=== PATIENT | female | born 1945 | race Caucasian/White ===

== ENCOUNTER 2019-08-09 16:19 | Outpatient (CLI) | payer MEDICARE, MEDICAID, SELFPAY ==
--- NOTE | 2019-08-09 16:30 | XRR_ITS ---
PROCEDURE INFORMATION: Exam: XR Left Knee Exam date and time: 08/09/2019 4:43 PM Age: 74 years old Clinical indication: Pain; Knee; Left; Additional info: L knee pain TECHNIQUE: Imaging protocol: XR Left knee. Views: 3 views. COMPARISON: No relevant prior studies available. FINDINGS: Bones/joints: Narrowing of the medial knee compartment with mild degenerative spurring of the medial condyles. The bones are otherwise intact and in normal alignment. No knee effusion. Soft tissues: Normal. XR/XR knee LT 3V* 23506 IMPRESSION: Degenerative changes of the medial knee compartment.
== END 2019-08-09 16:20 | disposition home or self-care (01) ==
LOC: RAD 16:23
PROVIDERS: Family Provider Family Medicine; Visit Provider Nurse Practitioner Family
DX: M25.562 Pain in left knee (principal)
CPT/HCPCS: 73562

== ENCOUNTER → 2019-09-07 09:38 | Outpatient (BNVA) | payer MEDICARE, MEDICAID, SELFPAY | PROVIDERS: Family Provider Family Medicine; Referring Provider Nurse Practitioner Family; Visit Provider Specialist | DX: M25.562 Pain in left knee (principal) | CPT/HCPCS: 73560; 73565 ==

== ENCOUNTER 2019-09-13 08:00 | Day surgery (SDC) | payer MEDICARE, MEDICAID, SELFPAY ==
[2019-09-13 08:57] VITALS: BMI 28.3
[2019-09-13 09:33] LABS: Basophils # 0.1 10^3/uL (0.0-0.1); Basophils % 0.9 %; Eosinophils # 0.1 10^3/uL (0.0-0.8); Eosinophils % 1.2 %; Hematocrit 39.6 % (37.0-47.0); Hemoglobin 12.9 g/dL (11.5-15.3); Lymphocytes # 1.5 10^3/uL (0.8-4.8); Lymphocytes % 26.2 %; Mean Corpuscular HGB Conc 32.6 g/dL (30.0-36.0); Mean Corpuscular Hemoglobin 32.8 pg (28.0-34.0); Mean Corpuscular Volume 100.8 fL (81-99); Mean Platelet Volume 9.2 fL (7.4-10.4); Monocytes # 0.6 10^3/uL (0.2-0.9); Monocytes % 9.8 %; Neutrophils # 3.5 10^3/uL (1.8-7.7); Neutrophils % 61.7 %; Nucleated Red Blood Cells % 0 %; Platelet Count 243 10^3/cmm (130-400); Red Blood Count 3.93 10^6/uL (4.1-5.3); Red Cell Distribution Width 11.9 % (12.1-15.1); White Blood Count 5.6 10^3/uL (4.0-10.0)
[2019-09-13 09:42] LABS: Bilirubin Urine 1+ (NEGATIVE); Blood Urine Trace (Negative); Glucose Urine UA Norm (Normal); Ketones Urine 1+ (Negative); Leukocyte Esterase Urine 2+ (Negative); Nitrate Urine Negative (Negative); Protein Urine 1+ (Negative); Urine Appearance Hazy (CLEAR); Urine Color Yellow (Yellow); Urobilinogen Urine 1 mg/dL (Negative); pH Urine 5 (5-7)
[2019-09-13 09:43] LABS: Add Urine Microscopic? YES
[2019-09-13 09:45] LABS: RBC Urine 0-4 /hpf (0-2); WBC Urine 55-80 /hpf (0-5)
[2019-09-13 09:45] LABS: Alanine Aminotransferase 20 U/L (0-33); Albumin Level 4.2 g/dL (3.5-5.2); Alkaline Phosphatase 53 IU/L (35-105); Anion Gap 13.7 (5-19); Aspartate Amino Transferase 23 U/L (0-32); Blood Urea Nitrogen 23 mg/dL (8-23); Calcium 9.8 mg/dL (8.5-10.5); Carbon Dioxide 28 mmol/L (22-29); Chloride 104 mmol/L (98-107); Globulin 3.7 g/dL (1.3-4.6); Glucose 111 mg/dL (65-115); Osmolality Calculated 289 mOsm/kg (285-295); Potassium 4.7 mmol/L (3.5-5.1); Sodium 141 mmol/L (136-145); Total Bilirubin 0.7 mg/dL (0.15-1.2); Total Protein 7.9 g/dL (6.6-8.7)
[2019-09-13 09:46] LABS: Bacteria Urine 2+; Transitional Epi Cells Urine 0-4 /hpf
[2019-09-13 09:47] LABS: Add Urine Culture? No; Hyaline Casts Urine 0-4; Mucus Urine TRACE
--- NOTE | 2019-09-13 09:56 | ANES.PREANE2 ---
Pre-Anesthetic Assessment Pre-Anesthetic Assessment: Height/Weight: Height 1.6 m Weight 72.575 kg Preop Diagnosis: DJD left knee Proposed Procedure: Operation Date: 09/20/19 07:00 Proposed Procedures p Total Knee Arthroplasty 25781 M17.11(Left) - Vidhi Delacruz MD Social: Social History: Alcohol (occ) and Tobacco (quit) Exam: Pre-Anes Outpt Exam: alert, oriented x 3, clear to auscultation bilaterally and regular rate & rhythm Airway: Submandibular: WNL Cervical ROM: WNL MP: 2 Dentition: False (upper), Full and Other (teeth poor) History/ROS: No significant history except as noted Pulmonary: Pulmonary: None reported CV/HEM: CV/HEM: CAD (cath 2009, no stents due to anatomy, stable since), HTN and CO : : None reported Hepatic: Hepatic: None reported GI: GI: None reported Metabolic: Metabolic: Hyperlipidemia Musc/skel: Musc/skel: OA/DJD Neuropsych: Neuropsych: None reported Anesthetic Plan: ASA status: 3 Anesthesia: Anesthesia Evaluation and Eval. for regional block (left Adductor canal) Risk of > 500 ml blood loss (7ml/kg in children): No PFSH Anesthesia PFSH: Medical History Cataract History of heart attack History of high blood pressure History of stroke Primary osteoarthritis of right knee Surgical History History of carpal tunnel release Social History Smoking and tobacco status: former smoker Alcohol intake: current Alcohol intake frequency: few times a week Data Anesthesia CBC & Chem 7: 09/13/19 09:16 09/13/19 09:16 Other Labs: Laboratory Results - last 48 hr 09/13/19 09/13/19 09/13/19 09:16 09:16 09:21 WBC 5.6 RBC 3.93 L Hgb 12.9 Hct 39.6 MCV 100.8 H MCH 32.8 MCHC 32.6 RDW 11.9 L Plt Count 243 MPV 9.2 Neut % (Auto) 61.7 Lymph % (Auto) 26.2 [place] % (Auto) 9.8 Eos % (Auto) 1.2 Baso % (Auto) 0.9 Neut # (Auto) 3.5 Lymph # (Auto) 1.5 [place] # (Auto) 0.6 Eos # (Auto) 0.1 Baso # (Auto) 0.1 Nucleated RBC % (auto) 0 Nucleated RBCs # 0.0 Sodium 141 Potassium 4.7 Chloride 104 Carbon Dioxide 28 Anion Gap 13.7 BUN 23 Creatinine 1.0 H Glucose 111 Calculated Osmolality 289 Calcium 9.8 Total Bilirubin 0.7 AST 23 ALT 20 Alkaline Phosphatase 53 Total Protein 7.9 Albumin 4.2 Globulin 3.7 Urine Color Yellow Urine Appearance Hazy A Urine pH 5 Ur Specific [place] 1.020 Urine Protein 1+ H Urine Glucose (UA) Norm Urine Ketones 1+ H Urine Blood Trace H Urine Nitrate Negative Urine Bilirubin 1+ H Urine Urobilinogen 1 H Ur Leukocyte Esterase 2+ H Urine RBC 0-4 H Urine WBC 55-80 H Ur Squamous Epith Cells 10-15 H Ur Transition Epith Cell 0-4 Urine Bacteria 2+ H Hyaline Casts 0-4 H Urine Mucus Trace Cardiac Studies: No Data to Display
--- NOTE | 2019-09-13 14:42 | PC.PT ---
Pre op order received 09/13/2019, no PT eval until post op 09/20/2019.
== END 2019-09-13 09:00 | disposition home or self-care (01) ==
LOC: OR 02-14 14:01
PROVIDERS: Family Provider Family Medicine; PCP Anesthesiology; Visit Provider Specialist
DX: Z01.818 Encounter for other preprocedural examination (principal); M17.12 Unilateral primary osteoarthritis, left knee; I25.10 Atherosclerotic heart disease of native coronary artery without angina pectoris; I25.2 Old myocardial infarction; I10 Essential (primary) hypertension; E78.5 Hyperlipidemia, unspecified; Z86.73 Personal history of transient ischemic attack (TIA), and cerebral infarction without residual deficits; Z87.891 Personal history of nicotine dependence
CPT/HCPCS: 36415; 80053; 81001; 85025

== ENCOUNTER → 2020-03-01 10:28 | Outpatient (BNVA) | payer MEDICARE, MEDICAID, SELFPAY | PROVIDERS: Family Provider Family Medicine; PCP Anesthesiology; Visit Provider Internal Medicine | DX: Z11.59 Encounter for screening for other viral diseases (principal) | CPT/HCPCS: 87635 ==

== ENCOUNTER 2020-03-06 09:15 | Observation (INO) | payer MEDICARE, MEDICAID, SELFPAY ==
[2020-02-29 10:23] VITALS: BMI 28.7
--- NOTE | 2020-02-29 11:09 | ANES.PREANE2 ---
Pre-Anesthetic Assessment Pre-Anesthetic Assessment: Height/Weight: Height 1.6 m Weight 73.482 kg Preop Diagnosis: DJD left knee Proposed Procedure: Operation Date: 03/06/20 07:00 Proposed Procedures p Total Knee Arthroplasty 28236 M17.11(Left) - Vidhi Delacruz MD Familial anesthetic complications: none Social: Social History: No alcohol Exam: Pre-Anes Outpt Exam: alert, oriented x 3, clear to auscultation bilaterally and regular rate & rhythm Airway: Cervical ROM: WNL MP: 2 Dentition: False CV/HEM: CV/HEM: CAD, HTN and MA (25 years ago) Metabolic: Metabolic: Hyperlipidemia Neuropsych: Neuropsych: CVA (25 years ago - L arm numbness) Anesthetic Plan: ASA status: 2 Anesthesia: General and Regional (specify below) Risk of > 500 ml blood loss (7ml/kg in children): No PFSH Anesthesia PFSH: Medical History Cataract History of heart attack History of high blood pressure History of stroke Primary osteoarthritis of right knee Surgical History History of carpal tunnel release Social History Smoking and tobacco status: former smoker Alcohol intake: current Alcohol intake frequency: few times a week Data Anesthesia Cardiac Studies: No Data to Display
--- NOTE | 2020-02-29 11:14 | ECG_ITS ---
[facility] Test Date: 2020-02-29 Pat Name: Emma Santos Department: Room: Gender: Female Market Specialist: : 1945 Requested By: Carrie Reddy Order Number: [id number] Don MD: Rach Mcgarry M.D. Measurements Intervals [place] Rate: 59 P: 52 MA: 216 QRS: 23 QRSD: 78 T: 38 QT: 433 QTc: 431 Interpretive Statements SINUS BRADYCARDIA WITH FIRST DEGREE AV BLOCK LOW QRS VOLTAGE IN PRECORDIAL LEADS [QRS DEFLECTION < 1.0 mV IN CHEST LEADS] POSSIBLE ANTERIOR MYOCARDIAL INFARCTION [30 ms Q WAVE IN V3/V4, OR R < 0.2 mV IN V4], PROBABLY OLD Compared to ECG 04/18/2019 04:45:13 Low QRS voltage now present Myocardial infarct finding now present Sinus rhythm no longer present Sinus arrhythmia no longer present T-wave abnormality no longer present Electronically Signed On 02-29-2020 18:51:37 CDT by Rach Mcgarry M.D. [email or web address]
[2020-02-29 11:44] LABS: Basophils # 0.1 10^3/uL (0.0-0.1); Basophils % 1.1 %; Eosinophils # 0.2 10^3/uL (0.0-0.8); Eosinophils % 3.5 %; Hematocrit 33.7 % (37.0-47.0); Hemoglobin 10.9 g/dL (11.5-15.3); Lymphocytes # 1.5 10^3/uL (0.8-4.8); Lymphocytes % 22.4 %; Mean Corpuscular HGB Conc 32.3 g/dL (30.0-36.0); Mean Corpuscular Hemoglobin 33.1 pg (28.0-34.0); Mean Corpuscular Volume 102.4 fL (81-99); Monocytes # 0.7 10^3/uL (0.2-0.9); Monocytes % 9.9 %; Neutrophils # 4.11 10^3/uL (1.8-7.7); Neutrophils % 62.8 %; Nucleated Red Blood Cells % 0 %; Platelet Count 239 10^3/cmm (130-400); Red Blood Count 3.29 10^6/uL (4.1-5.3); Red Cell Distribution Width 12.1 % (12.1-15.1); White Blood Count 6.6 10^3/uL (4.0-10.0)
[2020-02-29 11:52] LABS: Add Urine Microscopic? YES; Bilirubin Urine Neg (NEGATIVE); Blood Urine Neg (Negative); Glucose Urine UA Norm (Normal); Ketones Urine Negative (Negative); Leukocyte Esterase Urine 2+ (Negative); Nitrate Urine Negative (Negative); Protein Urine Neg (Negative); Specific Gravity, Urine 1.025 (1.005-1.030); Urine Color Yellow (Yellow); Urobilinogen Urine Neg (Negative); pH Urine 5 (5-7)
[2020-02-29 11:54] LABS: Bacteria Urine 2+; RBC Urine 0-4 /hpf (0-2); WBC Urine 80-100 /hpf (0-5)
[2020-02-29 11:55] LABS: Add Urine Culture? Yes; Mucus Urine 1+; Transitional Epi Cells Urine 0-4 /hpf
[2020-02-29 12:00] LABS: Alanine Aminotransferase 24 U/L (0-33); Albumin Level 4.4 g/dL (3.5-5.2); Alkaline Phosphatase 48 IU/L (35-105); Anion Gap 15.5 (5-19); Aspartate Amino Transferase 30 U/L (0-32); Blood Urea Nitrogen 26 mg/dL (8-23); Calcium 9.1 mg/dL (8.5-10.5); Carbon Dioxide 24 mmol/L (22-29); Chloride 107 mmol/L (98-107); Globulin 3.1 g/dL (1.3-4.6); Glucose 95 mg/dL (65-115); Osmolality Calculated 291 mOsm/kg (285-295); Potassium 4.5 mmol/L (3.5-5.1); Sodium 142 mmol/L (136-145); Total Bilirubin 0.4 mg/dL (0.15-1.2); Total Protein 7.5 g/dL (6.6-8.7)
[2020-03-06] VITALS (26 sets, daily range): BP systolic 95–142; BP diastolic 50–87; PULSE 61–93; RESP 13–27; TEMP 36.4–37.1; O2SAT 91–98
[2020-03-06] MEDS: sodium chloride 0.9% 1,000 ML 30 ML IV (06:21)
--- NOTE | 2020-03-06 06:45 | P.ANESUD_ITS ---
Pre-Anesthetic Update Pre-Anesthetic Assessment: Date of Surgery/Procedure: 03/06/20 Preop Klarissa gnosis: Left Knee degenerative osteoarthritis Proposed Procedure: Operation Date: 03/06/20 07:00 Proposed Procedures p Total Knee Arthroplasty 16239 M17.11(Left) - Vidhi Delacruz MD Any changes to Pre-Anesthetic Assessment?: No Last Intake: Intake Last Liquid Date 03/06/20 Last Liquid Time 04:45 Last Solid Date 03/05/20 Last Solid Time 17:00 Exam: Pre-Anes Outpt Exam: alert, oriented x 3, clear to auscultation bilaterally and regular rate & rhythm Other Pertinent Information: Other Pertinent Information: patient states she took plavix 5 days ago, but unable to state which day was last day Cardiac Studies: No Data to Display
--- NOTE | 2020-03-06 06:46 | ANES.PROC ---
Anesthesia Procedures Procedure/Date: 03/06/20 Nerve Block ^: Nerve Block 1: Main Anesthesia: general anesthesia Time Out Performed: Yes Consent: requested by attending/covering physician, from patient, risks and benefits reviewed and patient agrees to proceed Nerve block location: adductor canal (L) Anesthesia monitors applied: pulse oximetry, EKG, BP cuff and oxygen Nerve block position: supine Anesthetic Used: ropivicaine 0.5% and with decadron (4 mg) Amount of anesthesia used (mL): 30 Ultrasound used to: recognize landmarks Nerve Stimulator Used?: No Interscalene/Femoral BLK: 4 stimuplex 21 g needle used for position and inplane approach, visualize local anesthetic spread and no vascular puncture identified Injection: neg aspiration of heme Patient Tolerated Procedure: well Complications: none
[2020-03-06] MEDS: midazolam 1 mg/mL INJ 2 mL 2 MG IVP (06:48)
--- NOTE | 2020-03-06 06:53 | P.HPUD_ITS ---
Surgery/Procedure H&P Update DATE OF PROCEDURE: March 06, 2020 DATE H&P PERFORMED: 02/09/20 H&P UPDATE INFORMATION: I have reviewed H&P completed within last 30 days, I have examined patient prior to procedure and H&P is in [facility] EMR on date indicated PREOP DIAGNOSIS: Left Knee degenerative osteoarthritis PLANNED PROCEDURE: Operation Date: 03/06/20 07:00 Proposed Procedures p Total Knee Arthroplasty 16408 M17.11(Left) - Vidhi Delacruz MD Related Problem List Diagnoses (1) Primary osteoarthritis of left knee:
[2020-03-06] MEDS: ceFAZolin 1,000 mg SDV 1000 MG IRRIGATION ×2 (07:47→07:48)
[2020-03-06] MEDS: vancomycin 1,000 MG SDV 1000 MG XX (07:48)
--- NOTE | 2020-03-06 09:07 | PM.OP ---
Operative Report Date of procedure: March 06, 2020 Pre-op Diagnosis: Left Knee degenerative osteoarthritis Post-op diagnosis: same Post-op Findings: Severe degenerative osteoarthritis Procedure Done: Left total knee arthroplasty utilizing the following Bruce implants: A size 3 triathlon posterior stabilized press-fit left femoral component, a size 3 triathlon titanium tibial component, press-fit, a triathlon tibial bearing insert size 3 x 9 mm, and an asymmetric 32 mm x 10 mm patella Specimens removed/disposition: Bone, disposed of Pathology: none sent Surgeon: Vidhi Delacruz Dental Services Director: Silverio Mayen Anesthesia: General (Intubated, ASA tube with supplemental regional block) Estimated blood loss (mL): 10 Tourniquet time (min): 79 (At 250 mmHg) IV fluids (mL): 700 Urine output (mL): 100 Complications: None Findings: Degenerative osteoarthritis left knee Condition: stable Disposition: PACU (Then to floor for observation, postop pain management and rehabilitation) Brief History: This 74-year-old woman presented with comments of severe left knee pain. She wishes to proceed with left total knee arthroplasty after discussion. She understands the risks and complications which were explained to her. Consents were signed and questions were answered. Procedure: The patient was brought to the operating theater, and after undergoing adequate general intubated anesthesia, ASA 2, with supplemental regional block, the left lower extremity was prepped with Dura-Prep and draped in usual fashion following placement of a tourniquet high on the leg. The leg was then draped free. Following prepping and draping, the leg was exsanguinated, and the tourniquet was elevated to 250 mmHg for a total tourniquet time of 79 minutes. Prior to elevation of the tourniquet, but following exposure of the site of surgery, a surgical pause was performed. At the time of the surgical pause, we confirmed the site and side of surgery. Additionally, we confirmed the appropriate and timely administration of preoperative antibiotics, Ancef 2 g and transexemic acid 1 g pre op. The availability of equipment was confirmed, and the patient's identity was verbalized as well. Following the surgical pause, an incision was made centering over the patella continuing proximally and distally as necessary to allow access to the knee joint. Dissection continued through skin and soft tissues using a scalpel. Hemostasis was obtained using electrocautery. The skin incision was followed by a median parapatellar arthrotomy. The leg was extended and the patella was everted. Following this, the leg was returned to flexed position. The distal femur was exposed and a drill hole was made in this for placement of the distal femoral jig. The distal femoral jig was set at 5? of valgus. The distal femoral cutting block was then placed in appropriate position, and an issa wing was used to confirm an appropriate amount of distal femur would be resected. The distal femoral resection was accomplished with 8 mm of bone being resected distally. After the distal femoral resection had been accomplished, the femur was measured and it measured a size 3. Medial lateral dimension also measured a size 3. A size 3 femoral cutting block was placed in position, and we were then able to accomplish the anterior, posterior and chamfer cuts. This jig was then removed and the notch guide was placed in position. With the notch guide in appropriate position, the notch was excised including resection of the anterior and posterior cruciate ligaments. This notch was to allow for the posterior stabilized femoral component. At this point, the femur was prepared and attention was directed to the proximal tibia. The posterior knee retractor was placed along with medial and lateral retractors. Further resection of the menisci was accomplished as we had better visualization. A complete meniscectomy was performed both medially and laterally with care being taken to protect the popliteus. Retractors were then placed so that the proximal tibia was well visualized. A drill hole was then made in the tibia for placement of the intramedullary guide. This guide was placed so that approximately 2 mm of bone would be resected from the deficient medial tibial plateau. The intramedullary guide was utilized supplemented with an extramedullary guide to assure appropriate alignment for the proximal tibial resection. The proximal tibial jig was then evaluated, pinned in position, and the proximal tibial resection was accomplished without difficulty. The jig was removed and the proximal tibia was measured. It measured a size 3. A trial reduction was accomplished with an 9 mm insert. We had good balance to the knee with full extension and excellent varus-valgus stability. The femoral component was placed in position for the trial reduction, and the knee was placed through range of motion. There was excellent stability with excellent varus-valgus alignment with appropriate patellar tracking. This was felt to be the appropriate size insert. There was full extension and flexion without lift off and the rotation of the tibia was marked. Alignment was checked from the hip to the ankle, and this was noted to be appropriate as well. Attention was then directed to the patella. The patella was measured with a caliper. We resected sufficient patella to leave approximately 14 mm of patella remaining. Measurements of the patella then indicated that a size asymmetric 32 mm x 10 mm was the appropriate patellar size. We then placed the jig to drill for the 3 pegs of the press-fit patella, and these drill holes were made without incident. A trial patella was then placed and the knee was placed through range of motion. The patella was noted to track nicely without evidence of subluxation. The femur was prepared for a press-fit femur by drilling 2 holes for the femoral pegs. All trial components were subsequently removed. The tibial tray was then pinned into position, and we broached the tibia for the stem of the tibial component. Subsequently, 4 drill holes were made for placement of the press-fit tibia. This was accomplished without difficulty. Care was taken to assure appropriate rotation of the tibia as well as appropriate position on the proximal tibia. The tibial tray was completely seated on the proximal tibia. Following broaching, the tibial guide was removed, and all surfaces were copiously irrigated. The surfaces were then dried and a bone plug was placed into the distal femur. Exparel was also injected at this point. The Tritanium tibia was impacted into position. The beaded femur was then impacted into position in a cementless fashion. The tibial insert was placed. The patella was pressed into position with a patellar clamp. The knee was irrigated with 20 mL of Betadine and 500 mL of normal saline, and this was allowed to remain in the knee for 3-4 minutes. This was allowed to remain in the knee for 3 full minutes. The knee was then copiously irrigated and suctioned dry. Attention was then directed to closure. Closure was accomplished with 0 Vicryl in the fascial tissues, 2-0 Monocryl was used in the subcutaneous tissues, and the skin was closed with skin rosemary followed by Exofin. A sterile dressing was then placed consisting of Telfa, 4 x 4's, ABDs, sterile soft roll, and an Bear wrap. The patient was returned the Recovery Room in a satisfactory condition. X-rays were obtained there. The patient will be discharged to the floor for postoperative rehabilitation and pain management. She'll be under inpatient status secondary to initial cardiac issues and need for probable senior living at the time of discharge. Associated Problem List Diagnoses (1) Primary osteoarthritis of left knee:
--- NOTE | 2020-03-06 09:10 | SUR.PHASEI ---
0904 PATIENT TO PACU FROM OR. RR EVEN AND UNLABORED. SPO2 92% ON NC AT 5L. DRESSING TO LEFT KNEE, CDI WITH, LEFT PEDAL PULSE, STRONG AND MARKED.
--- NOTE | 2020-03-06 09:18 | XRR_ITS ---
PROCEDURE INFORMATION: Exam: XR Left Knee Exam date and time: 03/06/2020 9:21 AM Age: 74 years old Clinical indication: Device placement; Joint replacement hardware; Prior surgery; Surgery date: Post-operative (0-2 days); Additional info: Post op TECHNIQUE: Imaging protocol: XR Left knee. Views: 1 or 2 views. COMPARISON: CR XR knees AP WB w LT lmt ORTH 09/07/2019 9:43 AM FINDINGS: Bones/joints: Patient is status post knee arthroplasty with near anatomical alignment of the prosthesis. No paralleling lucencies about the femoral or tibial component to suggest loosening. No acute fracture or dislocation. Soft tissues: Postoperative changes in the soft tissues. Other findings: Spacer. XR/XR knee LT 1-2V 77106 IMPRESSION: 1. Status post knee arthroplasty. 2. No paralleling lucencies about the femoral or tibial component to suggest loosening. 3. No acute fracture or dislocation.
[2020-03-06] MEDS: fentaNYL 50 mcg/mL INJ 2mL IVP ×2 (09:22→09:35)
--- NOTE | 2020-03-06 09:37 | PM.PACU ---
PACU note Post-Anesthesia Exam: awake and vital signs stable Disposition: admitted
--- NOTE | 2020-03-06 10:16 | SUR.PHASEI ---
0988 PATIENT TO MED SURG. PAIN IMPROVED. DENIES NAUSEA. DRESSING INTACT TO LEFT LEG, CDI WITH LOLA WRAP IN PLACE AND FIRST ICE. GARRISON CATH IN PLACE.
[2020-03-06] MEDS: oxyCODONE 5 mg IR Tab/Cap PO ×2 (11:13→23:17)
[2020-03-06] MEDS: clopidogrel 75 mg Tablet PO (11:14)
[2020-03-06] MEDS: metoprolol succinate ER (24 HR) 50 mg Tablet PO (11:14)
[2020-03-06] MEDS: multivitamin therapeutic Tablet 1 TAB PO (11:14)
[2020-03-06] MEDS: spironolactone 25 mg Tablet PO (11:14)
[2020-03-06] MEDS: calcium carbonate 500 mg Chew Tablet 1000 MG PO ×2 (11:14→18:11)
[2020-03-06] MEDS: sennosides-docusate Tablet 2 TAB PO ×2 (11:14→18:11)
[2020-03-06] MEDS: cholecalciferol (vitamin D3) 1,000 unit Tablet 1000 UNIT PO (11:15)
[2020-03-06] MEDS: mupirocin oint 22 gm 1 APPLIC NASAL ×2 (11:15→18:11)
[2020-03-06] MEDS: chlorhexidine gluconate 0.12% Btl 473 mL 30 ML MUCOUS MEM ×4 (11:15→22:08)
[2020-03-06] MEDS: mupirocin oint 22 gm 1 APPLIC TOPICAL ×2 (11:15→18:11)
[2020-03-06] MEDS: CELEcoxib 200 mg Capsule PO (18:11)
[2020-03-06] MEDS: iron polysaccharide complex 150 mg Capsule PO (18:11)
--- NOTE | 2020-03-06 18:19 | PC.NURSE ---
Bactroban to leg administration undone. Documented on wrong route.
[2020-03-07 02:49] LABS: Hematocrit 28.8 % (37.0-47.0); Hemoglobin 9.2 g/dL (11.5-15.3); Lymphocytes # 0.5 10^3/uL (0.8-4.8); Lymphocytes % 6.2 %; Mean Corpuscular HGB Conc 31.9 g/dL (30.0-36.0); Mean Corpuscular Hemoglobin 33.3 pg (28.0-34.0); Mean Corpuscular Volume 104.3 fL (81-99); Mean Platelet Volume 10.3 fL (7.4-10.4); Monocytes # 0.7 10^3/uL (0.2-0.9); Monocytes % 7.9 %; Neutrophils # 7.05 10^3/uL (1.8-7.7); Neutrophils % 85.5 %; Nucleated Red Blood Cells % 0 %; Platelet Count 201 10^3/cmm (130-400); Red Blood Count 2.76 10^6/uL (4.1-5.3); Red Cell Distribution Width 12.2 % (12.1-15.1); White Blood Count 8.2 10^3/uL (4.0-10.0)
[2020-03-07 03:03] VITALS: RESP 18; O2SAT 95
[2020-03-07] MEDS: oxyCODONE 5 mg IR Tab/Cap PO ×2 (03:03→08:26)
[2020-03-07 03:15] LABS: Blood Urea Nitrogen 23 mg/dL (8-23); Calcium 9.3 mg/dL (8.5-10.5); Carbon Dioxide 22 mmol/L (22-29); Chloride 100 mmol/L (98-107); Glucose 140 mg/dL (65-115); Osmolality Calculated 271 mOsm/kg (285-295); Sodium 131 mmol/L (136-145)
[2020-03-07 04:36] VITALS: BP 124/74; PULSE 63; RESP 20; TEMP 36.9; O2SAT 95
[2020-03-07] MEDS: CELEcoxib 200 mg Capsule PO (05:40)
[2020-03-07 08:00] VITALS: BP 151/80; PULSE 65; RESP 18; TEMP 36.8; O2SAT 96
[2020-03-07] MEDS: amlodipine 5 mg Tablet PO (08:12)
[2020-03-07] MEDS: calcium carbonate 500 mg Chew Tablet 1000 MG PO (08:12)
[2020-03-07] MEDS: spironolactone 25 mg Tablet PO (08:12)
[2020-03-07] MEDS: atorvastatin 40 mg Tablet 20 MG PO (08:12)
[2020-03-07] MEDS: citalopram 20 mg Tablet 10 MG PO (08:13)
[2020-03-07] MEDS: multivitamin therapeutic Tablet 1 TAB PO (08:13)
[2020-03-07] MEDS: metoprolol succinate ER (24 HR) 50 mg Tablet PO (08:13)
[2020-03-07] MEDS: iron polysaccharide complex 150 mg Capsule PO (08:13)
[2020-03-07] MEDS: cholecalciferol (vitamin D3) 1,000 unit Tablet 1000 UNIT PO (08:13)
[2020-03-07] MEDS: aspirin 325 mg EC Tablet PO (08:13)
[2020-03-07] MEDS: clopidogrel 75 mg Tablet PO (08:13)
[2020-03-07 08:26] VITALS: RESP 16
[2020-03-07] MEDS: mupirocin oint 22 gm 1 APPLIC TOPICAL (08:26)
[2020-03-07] MEDS: sennosides-docusate Tablet 2 TAB PO (08:26)
[2020-03-07] MEDS: mupirocin oint 22 gm 1 APPLIC NASAL (08:27)
[2020-03-07] MEDS: chlorhexidine gluconate 0.12% Btl 473 mL 30 ML MUCOUS MEM (08:27)
--- NOTE | 2020-03-07 09:29 | PC.OT ---
OT Note: Patient refused therapy this morning and refused therapist offer to return later today.
--- NOTE | 2020-03-07 10:51 | PC.OT ---
OT note: Pt declined any OT at this time. Pt educated on purpose of OT and she refused. Eval not completed per pt's request.
--- NOTE | 2020-03-07 10:57 | ANE.PACU2 ---
Inpatient post-anesthesia follow up: Airway intact: Yes Vital signs: Temperature 98.2 F Pulse Rate 65 Respiratory Rate 16 Blood Pressure 151/80 Pulse Oximetry 96 Oxygen Delivery Me thod [ Room Air Current Rate & Del ata] Oxygen Delivery Me thod Room Air Oxygen Flow Rate 5 Fraction of Inspir ed Oxygen Hydration adequate: Yes Nausea and vomiting: No Pain level: 7 Mental status: Baseline Additional Comments: Block worked well for patient
[2020-03-07 11:31] VITALS: BP 123/71; PULSE 74; RESP 18; TEMP 36.7; O2SAT 96
[2020-03-07] MEDS: TRAMadol 50 mg Tablet PO (11:52)
--- NOTE | 2020-03-07 14:09 | PM.DCS ---
Discharge Providers Date of Admission: 03/06/20 09:15 Date of Discharge: March 07, 2020 Attending Provider at Admission: Vidhi Delacruz MD Attending Provider at Discharge: Vidhi Delacruz MD Primary Care Provider: Gatito Salcedo MD Diagnoses at Discharge Discharge Diagnosis (1) Primary osteoarthritis of left knee: Status: Acute Problem details: Resolved with left total knee arthroplasty Reason for Visit Reason for Visit: left total knee arthoplasty Hospital Course Hospital Course: Patient was admitted following total knee arthroplasty. She was brought to the hospital under observation status for postoperative rehabilitation, initiation of physical therapy, pain management, and monitoring of medical comorbidities. Initially, the patient felt that she might require alf, however, she did well enough following her surgery that she was ready for discharge to home the day following her surgical procedure. Discharge Summary: Patient was admitted for same-day surgery. The following procedure was performed: Left total knee arthroplasty utilizing the following [place] implants: A size 3 triathlon posterior stabilized press-fit left femoral component, a size 3 triathlon titanium tibial component, press-fit, a triathlon tibial bearing insert size 3 x 9 mm, and an asymmetric 32 mm x 10 mm patella. This was uneventful. She was independent with therapy and comfortable on the first postoperative day. Therefore, the patient was discharged home with home therapy. She will follow-up with me as scheduled. She will continue aspirin, all, and Celebrex, as well as her pain medications. Physical Exam Const: COMMON NORMALS: no acute distress, average body habitus, patient oriented x3 and alert GENERAL APPEARANCE: cooperative and comfortable ORIENTATION/CONSCIOUSNESS: Yes awake HENMT: COMMON NORMALS: normocephalic and atraumatic HEAD & SCALP: normocephalic and atraumatic Eye: GENERAL EYE: appearance normal, both eyes and all related structures Chest: COMMONS NORMALS: normal inspection of the chest Resp: COMMON NORMALS: normal respiratory effort EFFORT & INSPECTION: Yes able to speak in complete sentences and Yes symmetric chest movement Neuro: COMMON NORMALS: patient oriented x3 SENSORIUM/ORIENTATION: Yes alert Psych: COMMON NORMALS: mental status grossly normal APPEARANCE: Yes grossly normal ATTITUDE: Yes calm and Yes engaged ATTENTION/CONCENTRATION: Yes attention grossly intact Skin: COMMON NORMALS: no rashes or lesions noted GENERAL SKIN EXAM: no rashes or lesions noted Urinary Catheter Management^: F: Cath Placed During This Visit: yes Reason for Continuing Indwelling Catheter: Perioperative Use in Selected Surgeries Urinary Catheter Date of Insertion: 03/06/20 Urinary Catheter Time of Insertion: 07:20 Discharge Data Data Completed and Pending: Completed Studies During Hospitalization Category Date Time Status XR knee LT 1-2V 7 3560 Routine Exams 03/06/20 09:18 Completed Pending at discharge Category Date Time Status Complete Blood Co unt w/Auto AM LABS Lab 03/08/20 04:00 Ordered Complete Blood Co unt w/Auto AM LABS Lab 03/09/20 04:00 Ordered Labs from last 24 hours 03/07/20 03/07/20 02:14 02:14 WBC 8.2 RBC 2.76 L Hgb 9.2 L Hct 28.8 L MCV 104.3 H MCH 33.3 MCHC 31.9 RDW 12.2 Plt Count 201 MPV 10.3 Neut % (Auto) 85.5 Lymph % (Auto) 6.2 Love % (Auto) 7.9 Eos % (Auto) 0.0 Baso % (Auto) 0.0 Neut # (Auto) 7.05 Lymph # (Auto) 0.5 L Love # (Auto) 0.7 Eos # (Auto) 0.0 Baso # (Auto) 0.0 Nucleated RBC % (a uto) 0 Nucleated RBCs # 0.0 Sodium 131 L Potassium 5.0 Chloride 100 Carbon Dioxide 22 Anion Gap 14.0 BUN 23 Creatinine 1.7 H GFR Calculation Not Reportable Glucose 140 H Calculated Osmolal ity 271 L Calcium 9.3 Vitals: Last Vital Signs Temp 98.0 F 03/07/20 11:31 Pulse 74 03/07/20 11:31 Resp 18 03/07/20 11:31 BP 123/71 03/07/20 11:31 Pulse Ox 96 03/07/20 11:31 Discharge Plan Discharge Patient Disposition: Home Health Service Condition: Stable Prescriptions: New oxycodone 5 mg Tablet 5 mg PO Q4H PRN (Reason: Moderate Pain) Qty: 30 RF: 0 acetaminophen 500 mg Tablet 1,000 mg PO Q8H 15 Days Qty: 0 RF: 0 aspirin 325 mg Tablet,Delayed Release (Dr/Ec) 325 mg PO DAILY 30 Days Qty: 0 RF: 0 celecoxib 200 mg Capsule 200 mg PO Q12H Qty: 60 RF: 0 Continued mupirocin 2 % ointment 1 applic TOPICAL BID Qty: 15 RF: 0 clopidogrel 75 mg tablet 75 mg PO DAILY RF: 0 sulfamethoxazole-trimethoprim [Bactrim DS] 800-160 mg tablet 1 tab PO BID Qty: 20 RF: 0 metoprolol succinate 50 mg tablet extended release 24 hr 50 mg PO DAILY RF: 0 citalopram 10 mg tablet 10 mg PO DAILY RF: 0 amlodipine 5 mg tablet 5 mg PO DAILY RF: 0 spironolactone [Aldactone] 25 mg tablet 25 mg PO DAILY RF: 0 nitroglycerin 0.4 mg tablet, sublingual 0.4 mg sublingual PRN RF: 0 rosuvastatin [Crestor] 20 mg tablet 20 mg PO DAILY RF: 0 Held hydrocodone-acetaminophen 5-325 mg tablet 1 tab PO Q8H PRN (Reason: Pain) RF: 0 Hold Instructions: Resume on 03/21/20. Discharge Orders: Discharge Order (Routine); Ordered 03/06/20 Ordered By: Vidhi Delacruz Other Ambulatory Orders: DME: Walker (Order) Location: None Selected Ordered By: Vidhi Delacruz Referrals: [facility] [Outside] [facility] Care ([facility]) [Outside] Vidhi Delacruz MD [Physician] - 03/19/20 10:45 am Discharge Diet: Advance as tolerated and Usual diet Discharge Activity: Increase activity as tolerated, Limit activity as instructed, Use walker/crutches as instructed and As per PT/OT instructions Patient Instructions: Total Knee Replacement (DC), Precautions after Total Joint Replacement Surgery (DC) Activity Restrictions/Additional Instructions: Weight-bear as tolerated. Keep wound covered as needed. Discharge Attestations Time Spent in Discharge Care*: greater than 30 min Specific Discharge Activities: Specific discharge activities: educating patient, discussing with nurse case manager/social workers/dc planners and documenting/other paperwork Quality Metrics Clinical Quality Measures During this hospital stay, did patient experience: None Coding Level of Care Code Acute Degreasing Solution Mixer for Bennett Fwponcho Diagnoses Primary osteoarthritis of left knee M17.12
--- NOTE | 2020-03-07 14:43 | PC.CHAP ---
Pastoral Care Encounter/Spiritual Assessment Type of Contact [] Declined magazine editor visit [] Patient/Family/Request visit [] Outpatient visit [] Follow-up visit [] Physician referral [] Code/Alert [X] Routine visit [] Staff referral [] Actively dying [] Patient sleeping [] Family support [] [] Out of room [] Palliative care [] [] Receiving care in room [] Pre-surgical visit [] Trauma [] Long length of stay [] ICU visit [] Other: Relational/Emotional Strength [] Patient feels connected with others/family/visitors/staff [] Distress [] Loneliness/isolation [] Abandonment Spirituality of Patient [] Person of Noa [] Attends Jain of their Noa [] Believes in Prayer [] Reads Bible or Yarsani materials [] There are Spiritual issues to be addressed Business Librarian Interventions [X] Prayer [] Active listening [] Non-anxious presence [] Spiritual/emotional support [] Crisis/trauma care [] Spiritual counseling [] Bereavement support [] Provided bereavement packet [] Provided Bible/devotional materials [] Provided toy/stuffed animal, coloring book to patient or family member [] Provided Communion [] Anointing/[place] [] Salvation [] Completed spiritual assessment [] Other: Impact on Illness or Injury [] Angry [] Fearful [] Anxious [] Often cries [] Exhaustion [] Unable to work [] Unable to attend latter-day [] Unable to walk/stand [] Unable to read [] Unable to drive [] Unable to eat/drink [] Unable to sleep [] Unable to be with family [] Patient intubated [] Other: Summary Time spent with patient
[2020-03-07 15:32] VITALS: BP 123/71; PULSE 74; RESP 18; TEMP 36.7; O2SAT 96
== END 2020-03-07 15:33 | disposition home health service (06) ==
LOC: MEDSURG 09:17
PROVIDERS: Admitting Provider Specialist; PCP Anesthesiology; Visit Provider Specialist
PROC: (CPT 27447; principal; 2020-03-06 07:00)
DX: M17.12 Unilateral primary osteoarthritis, left knee (principal); I25.10 Atherosclerotic heart disease of native coronary artery without angina pectoris; I10 Essential (primary) hypertension; I25.2 Old myocardial infarction; E78.5 Hyperlipidemia, unspecified; Z86.73 Personal history of transient ischemic attack (TIA), and cerebral infarction without residual deficits; Z87.891 Personal history of nicotine dependence
CPT/HCPCS: 27447; 12345; 36415; 51702; 73560; 80048; 80053; 81001; 85025; 87086; 93005; 96365; 96366; 96374; 97110; 97116; 97161; 97530; C1776; C9290; G0378; J0131; J0690; J1100; J2250; J2704; J2795; J3010; J3370; J3490; J7030

== ENCOUNTER → 2020-03-19 11:14 | Outpatient (BNVA) | payer MEDICARE, MEDICAID, SELFPAY | PROVIDERS: PCP Anesthesiology; Visit Provider Specialist | DX: M17.12 Unilateral primary osteoarthritis, left knee (principal) | CPT/HCPCS: 73560; 73565 ==

== ENCOUNTER → 2020-04-18 10:45 | Outpatient (BNVA) | payer MEDICARE, MEDICAID, SELFPAY | PROVIDERS: Family Provider Family Medicine; PCP Anesthesiology; Visit Provider Specialist | DX: M17.12 Unilateral primary osteoarthritis, left knee (principal); Z96.652 Presence of left artificial knee joint | CPT/HCPCS: 73560; 73565 ==

== ENCOUNTER 2020-05-31 09:27 | Outpatient (CLI) | payer MEDICARE, MEDICAID, SELFPAY ==
--- NOTE | 2020-05-31 09:40 | USCV_ITS ---
Emma Santos Age: 74 Gender: F : 1945 Exam Date: 05/31/2020 10:04 Ordering Phys: Gatito Biggs MD Technologist: Darrell Barnes Exam Location: [facility] [place] Indication: HTN Aortic Velocity @ SMA (cm/s) 67.2 RIGHT KIDNEY LEFT KIDNEY Velocity (cm/s) Velocity (cm/s) Sys/Liriano Sys/Liriano Resistive Index Resistive Index 220.0 / 48.0 0.78 Proximal Renal Artery 106.2 / 21.4 0.80 213.7 / 49.5 0.78 Mid Renal Artery 104.5 / 20.6 0.80 200.8 / 47.5 0.75 Distal Renal Artery 94.5 / 24.4 0.74 236.7 / 24.4 0.90 Hilar 81.3 / 20.3 0.75 40.6 / 10.7 0.74 Upper Pole 45.8 / 14.3 0.69 29.2 / 11.7 0.60 Mid Pole 51.5 / 11.4 0.78 40.3 / 12.9 0.68 Lower Pole 54.9 / 14.8 0.73 5.00 Renal Aortic Ratio 1.58 Accleration Index (cm/sec2) 4060.0 Hilar 1157.0 0 0 224.00 Upper Pole 780.00 164.00 Mid Pole 716.00 179.00 Lower Pole 666.00 94.8 Kidney Length (mm) 105.0 CONCLUSIONS Increased systolic flow velocities (>180cm/s) and post-stenotic turbulence with tardus parvus waveform noted in the proximal right renal artery, suggesting hemodynamically significant (>60% ) renal artery stenosis. No sonographic evidence of hemodynamically significant left renal artery stenosis. Vijay Kim MD (Electronically Signed) Final Date: 01 June 2020 17:53 S
--- NOTE | 2020-05-31 09:41 | US_ITS ---
WS: [id number] ULTRASOUND RENAL TECHNIQUE: Ultrasound examination of both kidneys. CLINICAL INFORMATION: ESSENTIAL HYPERTENSION COMPARISON: None. FINDINGS: RIGHT: Right kidney is normal in size and appearance. Echogenicity: Normal. Cortical thickness: 1.0 cm; Normal. Hydronephrosis: None. Perinephric fluid: None. Right kidney measures: 9.9 cm x 4.2 cm x 3.7 cm. LEFT: Left kidney is normal in size and appearance. Echogenicity: Normal. Cortical thickness: 1.1 cm; Normal. Hydronephrosis: None. Perinephric fluid: None. Left kidney measures: 9.9 cm x 4.7 cm x 3.6 cm. Normal visualized aorta. Normal bladder. US/US renal BI* [id number] IMPRESSION: Normal renal ultrasound
== END 2020-05-31 09:28 | disposition home or self-care (01) ==
LOC: RAD 09:31
PROVIDERS: PCP Family Medicine; Visit Provider Family Medicine
DX: I10 Essential (primary) hypertension (principal)
CPT/HCPCS: 76770; 93975

== ENCOUNTER 2020-08-04 12:47 | Emergency (ER) | payer MEDICARE, MEDICAID, SELFPAY ==
[2020-08-04 13:01] VITALS: BP 178/87; PULSE 83; RESP 14; TEMP 36.7; O2SAT 96; BMI 27.3
--- NOTE | 2020-08-04 13:12 | ECG_ITS ---
[facility] Test Date: 2020-08-04 Pat Name: Emma Santos Department: Room: Gender: Female Garment Fitter: : 1945 Requested By: Santos Nick I Order Number: [id number] Reading MD: FAUSTO RUSHING Measurements Intervals Aubrey Rate: 77 P: 28 FL: 204 QRS: 5 QRSD: 89 T: 47 QT: 420 QTc: 477 Interpretive Statements SINUS RHYTHM POSSIBLE ANTERIOR MYOCARDIAL INFARCTION , PROBABLY OLD [30 ms Q WAVE IN V3/V4, OR R < 0.2 mV IN V4] Compared to ECG 02/29/2020 11:17:42 Sinus bradycardia no longer present First degree AV block no longer present Myocardial infarct finding still present Electronically Signed On 08-04-2020 21:34:16 FLOOR SWEEPER by FAUSTO RUSHING [id number]
--- NOTE | 2020-08-04 13:13 | XRR_ITS ---
PROCEDURE INFORMATION: Exam: XR Chest, 2 Views Exam date and time: 08/04/2020 1:14 PM Age: 75 years old Clinical indication: Other: HTN TECHNIQUE: Imaging protocol: XR of the chest Views: 2 views. COMPARISON: CT Chest/Abdomen/Pelvis w IV* 04/18/2019 3:20 AM FINDINGS: Lungs: Unremarkable. No consolidation. Pleural spaces: Unremarkable. No pleural effusion. No pneumothorax. Heart/Mediastinum: Stable cardiomediastinal silhouette. Bones/joints: Degenerative changes of the spine seen. XR/XR chest 2V* [id number] IMPRESSION: No evidence of active cardiopulmonary disease.
[2020-08-04 13:28] LABS: Eosinophils # 0.1 10^3/uL (0.0-0.8); Eosinophils % 1.2 %; Hematocrit 37.5 % (37.0-47.0); Hemoglobin 12.2 g/dL (11.5-15.3); Lymphocytes # 0.8 10^3/uL (0.8-4.8); Lymphocytes % 19.2 %; Mean Corpuscular HGB Conc 32.5 g/dL (30.0-36.0); Mean Corpuscular Volume 98.4 fL (81-99); Mean Platelet Volume 9.7 fL (7.4-10.4); Monocytes # 0.4 10^3/uL (0.2-0.9); Monocytes % 8.6 %; Neutrophils # 2.95 10^3/uL (1.8-7.7); Nucleated Red Blood Cells % 0 %; Platelet Count 229 10^3/cmm (130-400); Red Blood Count 3.81 10^6/uL (4.1-5.3); Red Cell Distribution Width 12.4 % (12.1-15.1); White Blood Count 4.2 10^3/uL (4.0-10.0)
--- NOTE | 2020-08-04 13:33 | W.ED.GENADLT ---
HPI - General Adult General: Chief complaint: General Medical Stated complaint: HTN Time Seen by Provider: 08/04/20 13:02 Source: patient Mode of arrival: ambulatory Limitations: no limitations History of Present Illness: HPI narrative: The patient is a 75-year-old female with a history of hypertension who presents to the emergency department for persistently elevated blood pressure. She says she has been checking it often at home and it has remained elevated in the 180s to low 200s systolic. She was started on lisinopril and amlodipine yesterday but because her blood pressure still elevated today she came in for evaluation. She denies any chest pain, headaches, dizziness, shortness of breath. Associated symptoms: Deny dyspnea, headache(s), nausea, rash, palpitations or vomiting Review of Systems General: Reports: 10 or more systems reviewed and unremarkable except in HPI and below Const: Denies: fever(s), chills or body aches Eyes: Denies: change in vision or blurry vision ENMT: Denies: throat pain, enlarged tonsils, odynophagia, hoarseness, mouth pain or swelling of lips/tongue Card: Denies: palpitations, irregular heart rhythm, edema or swelling of feet/ankles Resp: Denies: dyspnea, productive cough or non-productive cough GI: Denies: abdominal pain, nausea or vomiting : Denies: flank pain, difficulty voiding, dysuria, urinary frequency, urinary urgency or urinary hesitancy Musc: Denies: neck pain, back pain or extremity swelling Skin/Breast: Denies: rash, pruritus or erythema Neuro: Denies: headache(s), numbness in extremities or weakness in extremities Endo: Denies: polyuria, polydipsia or tired all the time PFSH ED PFSH: Medical History (Updated 08/04/20 @ 15:32 by Santos Nick MD, MSM) Cataract History of heart attack History of high blood pressure History of stroke Primary osteoarthritis of right knee Surgical History History of carpal tunnel release Social History Smoking and tobacco status: former smoker Alcohol intake: current Alcohol intake frequency: few times a week Physical Exam Const: COMMON NORMALS: no acute distress, average body habitus, patient oriented x3, no limitations, healthy appearing, alert and well nourished HENMT: COMMON NORMALS: normocephalic, atraumatic and moist oral mucous membranes HEAD & SCALP: normocephalic and atraumatic Neck/C-Spine: COMMON NORMALS: no meningeal signs and no JVD Resp: COMMON NORMALS: normal respiratory effort, No retractions, No use of accessory muscles, clear to auscultation bilaterally and percussion normal AUSCULTATION: clear to auscultation bilaterally PERCUSSION: percussion normal Cardio: COMMON NORMALS: no JVD, regular rate, regular rhythm, S1 normal heart sound present, S2 normal heart sound present, No gallops present (Cardio), No clicks present (Cardio), No murmurs present (Cardio), No rub (Cardio) and Peripheral pulses 2+ throughout RATE: regular rate RHYTHM: regular rhythm HEART SOUNDS: S1 normal heart sound present and S2 normal heart sound present PERIPHERAL PULSES: Peripheral pulses 2+ throughout GI: COMMON NORMALS: Normal to inspection, nondistended, normoactive bowel sounds present, Soft to palpation, non-tender, No hepatosplenomegaly present, no masses and no bruits PALPATION: Yes Soft to palpation and Yes No hepatosplenomegaly present Extremity: COMMON NORMALS: normal to inspection, full ROM, capillary refill normal, no calf tenderness and no pedal edema Neuro: COMMON NORMALS: patient oriented x3 SENSORIUM/ORIENTATION: Yes alert MENINGEAL SIGNS: Yes no meningeal signs Skin: COMMON NORMALS: no rashes or lesions noted, no wounds, turgor normal, no jaundice, no petechiae and no mottling GENERAL SKIN EXAM: no rashes or lesions noted and turgor normal Course Reevaluation(s): Reevaluation #1: Discussed her lab and imaging findings with her. Negative for acute findings other than elevated proBNP. Because she is asymptomatic we will order an outpatient echocardiogram. There is no indication for hospital admission at this time. She is advised to check her blood pressure twice a day and I will not make any medication changes at this time because the dose of her medications were increased yesterday. She is advised to follow-up with her primary care provider and she will be contacted for the outpatient echo. She voiced understanding and is in agreement with the plan. Time: 15:31 Vital Signs: Vital signs: Vital Signs Temperature 98.0 F 08/04/20 13:01 Pulse Rate 76 08/04/20 15:42 Respiratory Rate 16 08/04/20 15:42 Blood Pressure 186/96 08/04/20 15:42 Pulse Oximetry 97 08/04/20 15:42 MDM - General Adult MDM Narrative: Medical decision making narrative: 75-year-old female patient with hypertensive urgency. She has had chronically elevated high blood pressure and her primary care provider increase the dose of lisinopril and amlodipine yesterday. The patient however states that she thought the medications will start acting immediately and when her blood pressure was still elevated today she came in here to be seen. Evaluation in the emergency department for signs of endorgan damage shows elevated proBNP. She has no rales and has no shortness of breath so an outpatient echocardiogram is ordered and she is to follow-up with her primary care provider. Medical Records: Attestation: I reviewed the patient's medical records. Lab Data: Attestation: I reviewed the patient's lab results. Labs: Lab Results 08/04/20 08/04/20 08/04/20 Range/Units 13:21 13:21 13:46 WBC 4.2 (4.0-10.0) 10^3/ uL RBC 3.81 L (4.1-5.3) 10^6/u L Hgb 12.2 (11.5-15.3) g/dL Hct 37.5 (37.0-47.0) % MCV 98.4 (81-99) fL MCH 32.0 (28.0-34.0) pg MCHC 32.5 (30.0-36.0) g/dL RDW 12.4 (12.1-15.1) % Plt Count 229 (130-400) 10^3/c mm MPV 9.7 (7.4-10.4) fL Neut % (Auto) 70.0 % Lymph % (Auto) 19.2 % [place] % (Auto) 8.6 % Eos % (Auto) 1.2 % Baso % (Auto) 1.0 % Neut # (Auto) 2.95 (1.8-7.7) 10^3/u L Lymph # (Auto) 0.8 (0.8-4.8) 10^3/u L [place] # (Auto) 0.4 (0.2-0.9) 10^3/u L Eos # (Auto) 0.1 (0.0-0.8) 10^3/u L Baso # (Auto) 0.0 (0.0-0.1) 10^3/u L Nucleated RBC % (a uto) 0 % Nucleated RBCs # 0.0 /100WBC Sodium 139 (136-145) mmol/L Potassium 3.5 (3.5-5.1) mmol/L Chloride 101 (98-107) mmol/L Carbon Dioxide 27 (22-29) mmol/L Anion Gap 14.5 (5-19) BUN 10 (8-23) mg/dL Creatinine 0.5 (0.5-0.9) mg/dL GFR Calculation Not Reportable Glucose 89 (65-115) mg/dL Calculated Osmolal ity 287 (285-295) mOsm/k g Calcium 9.1 (8.5-10.5) mg/dL Total Bilirubin 0.5 (0.15-1.2) mg/dL AST 25 (0-32) U/L ALT 14 (0-33) U/L Alkaline Phosphata se 70 (35-105) IU/L NT-Pro-B Natriuret Pep 1170 H (0-450) pg/mL Total Protein 7.1 (6.6-8.7) g/dL Albumin 4.0 (3.5-5.2) g/dL Globulin 3.1 (1.3-4.6) g/dL TSH 0.50 (0.27-4.20) uIU/ mL Urine Color Yellow (Yellow) Urine Appearance Clear (CLEAR) Urine pH 7 (5-7) Ur Specific Gravit y 1.015 (1.005-1.030) Urine Protein Neg (Negative) Urine Glucose (UA) Norm (Normal) Urine Ketones Negative (Negative) Urine Blood Neg (Negative) Urine Nitrate Negative (Negative) Urine Bilirubin 1+ H (Negative) Urine Urobilinogen 1 H (Negative) mg/dL Ur Leukocyte Sobeida ase Negative (Negative) Imaging Data^: CXR: Attestation: I personally reviewed and interpreted this imaging study as follows: Radiologist's impression: [address] [place] [address] XRay Report Signed Patient: Emma Santos #: [id number] : 4Acc#:[id number] Age/Sex: 75 / FADM Date: 08/04/20 Loc: ERRoom/Bed: Attending Dr: Ordering Provider/Ordering MD: Santos Nick MD, [facility] [place] Date of Service: 08/04/20 Procedure(s): XR chest 2V* [id number] Accession Number(s): [id number] Report Number: [id number] PROCEDURE INFORMATION: Exam: XR Chest, 2 Views Exam date and time: 08/04/2020 1:14 PM Age: 75 years old Clinical indication: Other: HTN TECHNIQUE: Imaging protocol: XR of the chest Views: 2 views. COMPARISON: CT Chest/Abdomen/Pelvis w IV* 04/18/2019 3:20 AM FINDINGS: Lungs: Unremarkable. No consolidation. Pleural spaces: Unremarkable. No pleural effusion. No pneumothorax. Heart/Mediastinum: Stable cardiomediastinal silhouette. Bones/joints: Degenerative changes of the spine seen. XR/XR chest 2V* [id number] IMPRESSION: No evidence of active cardiopulmonary disease. Dictated By:Bijan Weeks Signed By:Krystle Weeks Date/Time:08/04/20 1452 DD/ 1451 EKG Data^: EKG 1: Attestation: I personally reviewed and interpreted this EKG as follows: EKG interpretation date: 08/04/20 EKG interpretation time: 13:31 Prior EKG tracings: not available for review Interpretation: Normal sinus rhythm. Heart rate [address] changes Computer generated interpretation: Chest X-Ray 08/04/20 13:13 IMPRESSION: No evidence of active cardiopulmonary disease. Discharge Plan Discharge Patient Disposition: Home Clinical Impression: Asymptomatic hypertensive urgency, Elevated brain natriuretic peptide (BNP) level Condition: Stable Prescriptions: Continued clopidogrel 75 mg tablet 75 mg PO DAILY@0800 RF: 0 metoprolol succinate 50 mg tablet extended release 24 hr 50 mg PO DAILY@0800 RF: 0 citalopram 10 mg tablet 10 mg PO DAILY@0800 RF: 0 amlodipine 5 mg tablet 5 mg PO DAILY@2130 RF: 0 spironolactone [Aldactone] 25 mg tablet 25 mg PO DAILY RF: 0 nitroglycerin 0.4 mg tablet, sublingual 0.4 mg sublingual PRN RF: 0 rosuvastatin [Crestor] 20 mg tablet 20 mg PO DAILY@0800 RF: 0 lisinopril 10 mg tablet 10 mg PO BID@0800,2130 RF: 0 Discharge Orders: Discharge ED (Routine); Ordered 08/04/20 Ordered By: Santos Nick Referrals: Gatito Biggs MD [Primary Care Provider] - 1-3 days Discharge Diet: Low Salt Discharge Activity: Increase activity as tolerated Patient Instructions: Hypertension (ED) Activity Restrictions/Additional Instructions: Return for any new or worsening symptoms. Follow-up with your primary care provider within 3 days. You will be contacted to schedule an outpatient echocardiogram which is an ultrasound of your heart to see if you are in heart failure. Continue to check your blood pressure about twice a day and at the same time if possible. Ensure that you rest for at least 5 minutes before you check your blood pressure. Coding Level of Care Code ED Doctor Osteopathic for Benignog Fwd Exam Comprehensive
[2020-08-04 13:49] LABS: Add Urine Microscopic? NO
[2020-08-04 13:59] LABS: Alanine Aminotransferase 14 U/L (0-33); Alkaline Phosphatase 70 IU/L (35-105); Anion Gap 14.5 (5-19); Aspartate Amino Transferase 25 U/L (0-32); Blood Urea Nitrogen 10 mg/dL (8-23); Calcium 9.1 mg/dL (8.5-10.5); Carbon Dioxide 27 mmol/L (22-29); Chloride 101 mmol/L (98-107); Globulin 3.1 g/dL (1.3-4.6); Glucose 89 mg/dL (65-115); NT Pro B Type Natriuretic Pept 1170 pg/mL (0-450); Osmolality Calculated 287 mOsm/kg (285-295); Potassium 3.5 mmol/L (3.5-5.1); Sodium 139 mmol/L (136-145); Total Bilirubin 0.5 mg/dL (0.15-1.2); Total Protein 7.1 g/dL (6.6-8.7)
[2020-08-04 14:07] VITALS: BP 171/106; PULSE 77; RESP 20; O2SAT 94
[2020-08-04 14:13] LABS: Bilirubin Urine 1+ (Negative); Blood Urine Neg (Negative); Glucose Urine UA Norm (Normal); Ketones Urine Negative (Negative); Nitrate Urine Negative (Negative); Protein Urine Neg (Negative); Specific Gravity, Urine 1.015 (1.005-1.030); Urine Appearance Clear (CLEAR); Urine Color Yellow (Yellow); Urobilinogen Urine 1 mg/dL (Negative); pH Urine 7 (5-7)
[2020-08-04 14:14] LABS: Leukocyte Esterase Urine Negative (Negative)
[2020-08-04 15:07] VITALS: BP 185/93; PULSE 74; RESP 16; O2SAT 96
[2020-08-04 15:42] VITALS: BP 186/96; PULSE 76; RESP 16; O2SAT 97
--- NOTE | 2020-08-07 09:16 | DCPLANNER ---
manager location had message to schedule echocardiogram. manager location faxed order and patient information to centralized scheduling. manager location will call for appointment information.
--- NOTE | 2020-08-30 14:29 | DCPLANNER ---
Patient had a follow up appointment scheduled for 08.27.20 for an out patient echo - patient did attend appointment.
== END 2020-08-04 15:43 | disposition home or self-care (01) ==
PROVIDERS: Emergency Provider Family Medicine; PCP Family Medicine
DX: I16.0 Hypertensive urgency (principal); R79.89 Other specified abnormal findings of blood chemistry; Z79.02 Long term (current) use of antithrombotics/antiplatelets; Z86.73 Personal history of transient ischemic attack (TIA), and cerebral infarction without residual deficits; Z87.891 Personal history of nicotine dependence
CPT/HCPCS: 12345; 71046; 80053; 81003; 83880; 84443; 85025; 93005; 99282; 99283

== ENCOUNTER 2020-08-27 14:28 | Outpatient (CLI) | payer MEDICARE, MEDICAID, SELFPAY ==
--- NOTE | 2020-08-27 14:38 | USCV_ITS ---
Emma Santos Age: 75 Gender: F : 1945 Exam Date: 08/27/2020 15:00 Ordering Phys: Santos Nick MD [facility] [place] Technologist: Darrell Barnes [place] [facility] [place]: ELEVATED HTN BP: 130 / 59 HR: 59 Rhythm: Sinus Technical Quality: Adequate MEASUREMENTS (Male / Female) Normal Values 2D ECHO LV Diastolic Diameter PLAX 4.4 cm 4.2 - 5.9 / 3.9 - 5.3 cm LV Systolic Diameter PLAX 2.6 cm IVS Diastolic Thickness 1.6 cm 0.6 - 1.0 / 0.6 - 0.9 cm IVS Systolic Thickness 1.8 cm LVPW Diastolic Thickness 1.5 cm 0.6 - 1.0 / 0.6 - 0.9 cm LVPW Systolic Thickness 1.5 cm LVOT Diameter 2.0 cm LV Ejection Fraction 2D Teich 73.9 % LV Ejection Fraction MOD 2C 67.7 % LV Ejection Fraction 2C AL 67.5 % LA Diameter 3.5 cm LA Width 2.9 cm LA Height 3.9 cm RA Width 3.2 cm RA Height 3.7 cm Aorta at Sinotubular Diameter 2.4 cm M-MODE LV Diastolic Diameter MM 4.9 cm 4.2 - 5.9 / 3.9 - 5.3 cm LV Systolic Diameter MM 3.2 cm LV Ejection Fraction MM Teich 65.4 % IVS Diastolic Thickness MM 2.1 cm 0.6 - 1.0 / 0.6 - 0.9 cm IVS Systolic Thickness MM 3.0 cm LVPW Diastolic Thickness MM 0.7 cm 0.6 - 1.0 / 0.6 - 0.9 cm LVPW Systolic Thickness MM 1.4 cm Aortic Annulus Diameter 2.7 cm LA Ao Ratio MM 1.5 MV E Point Septal Separation 0.4 cm DOPPLER AV Peak Velocity 204.0 cm/s LVOT Peak Velocity 127.0 cm/s AV Area Cont Eq vti 2.2 cm squared AV Area Cont Eq pk 2.0 cm squared MV Area PHT 3.9 cm squared Mitral E to A Ratio 0.7 MV E' Velocity 55.0 cm/s Mitral E to MV E' Ratio 13.3 Mitral E to LV E' Lateral Ratio 12.9 Mitral E to LV E' Septal Ratio 13.8 TR Peak Velocity 234.0 cm/s TR Peak Gradient 21.9 mmHg Right Atrial Pressure 3.0 mmHg Pulmonary Artery Systolic Pressu 24.9 mmHg PV Peak Velocity 57.0 cm/s RV Acceleration Time 0.1 s RV Ejection Time 0.3 s RV AcT/ET 0.4 FINDINGS Left Ventricle Normal left ventricular cavity size. Normal left ventricular systolic function. No regional wall motion abnormalities. Left ventricular ejection fraction is estimated at 65 %. Grade I/IV diastolic dysfunction (abnormal relaxation filling pattern), normal to mildly elevated filling pressures. Right Ventricle The right ventricle is normal in size and function. Right Atrium The right atrium is normal in size. Left Atrium The left atrium is normal in size. Mitral Valve Severely thickened mitral valve. Severe mitral annular calcification. No mitral valve stenosis. No mitral valve regurgitation. Aortic Valve Moderate aortic valve calcification. No aortic valve stenosis. Trace aortic valve regurgitation. Tricuspid Valve Structurally normal tricuspid valve without significant stenosis or regurgitation. Pulmonary artery systolic pressure is normal. Pulmonic Valve Structurally normal pulmonic valve without significant stenosis. There is no pulmonic regurgitation. Pericardium Normal pericardium without effusion. Aorta Normal ascending aorta dimension. CONCLUSIONS 1-Normal left ventricular cavity size. Normal left ventricular systolic function. No regional wall motion abnormalities. Left ventricular ejection fraction is estimated at 65 %. Grade I/IV diastolic dysfunction (abnormal relaxation filling pattern), normal to mildly elevated filling pressures. 2-Severely thickened mitral valve. Severe mitral annular calcification. No mitral valve stenosis. No mitral valve regurgitation. 3-Moderate aortic valve calcification. No aortic valve stenosis. Trace aortic valve regurgitation. 4-There is no pericardial effusion. 5-Pulmonary artery systolic pressure is within normal limits. 6-Right atrial pressure is around 5 mm of mercury. 7-There are no prior echocardiogram studies to compare. Rach Mcgarry MD (Electronically Signed) Final Date: 27 August 2020 19:22 S
== END 2020-08-27 14:29 | disposition home or self-care (01) ==
LOC: RAD 14:33
PROVIDERS: PCP Family Medicine; Visit Provider Family Medicine
DX: I10 Essential (primary) hypertension (principal); I08.0 Rheumatic disorders of both mitral and aortic valves
CPT/HCPCS: 93306

== ENCOUNTER 2021-12-02 18:26 | Emergency (ER) | payer MEDICARE, MEDICAID, SELFPAY ==
--- NOTE | 2021-12-02 18:30 | CTR_ITS ---
PROCEDURE INFORMATION: Exam: CT Head Without Contrast Exam date and time: 12/02/2021 7:45 PM Age: 76 years old Clinical indication: Injury or trauma; Fall; Concussion/head injury; Injury details: Fell backward off of a single step and struck her head on garage floor. No loss of consciousness. Large hematoma to the occipital region. HX of stroke per PT chart TECHNIQUE: Imaging protocol: Computed tomography of the head without contrast. Radiation optimization: All CT scans at this facility use at least one of these dose optimization techniques: automated exposure control; mA and/or kV adjustment per patient size (includes targeted exams where dose is matched to clinical indication); or iterative reconstruction. COMPARISON: CT head wo con* [id number] 06/15/2019 11:57 AM RADIATION DOSE METRICS: Total DLP (mGy-cm): 799.14 FINDINGS: Brain: There is age-appropriate volume loss. There is mild periventricular white matter lucency consistent with chronic microvascular disease. There are a few small old basal ganglia lacunar infarcts. There is no acute infarct. There is no hemorrhage or extra-axial collection. There is no mass. Cerebral ventricles: There is no intraventricular hemorrhage. Paranasal sinuses: Visualized sinuses are unremarkable. No fluid levels. Mastoid air cells: Visualized mastoid air cells are well aerated. Bones/joints: Unremarkable. No acute fracture. Soft tissues: There is a large occipital scalp hematoma. CT/CT head wo con* [id number] IMPRESSION: 1. Mild chronic microvascular disease with a small old lacunar infarcts. 2. No acute intracranial injury or lesion and no change from prior scan.
[2021-12-02 18:40] VITALS: BP 128/77; PULSE 84; RESP 18; TEMP 36.6; O2SAT 96; BMI 24.7
--- NOTE | 2021-12-02 18:47 | CTR_ITS ---
PROCEDURE INFORMATION: Exam: CT Cervical Spine Without Contrast Exam date and time: 12/02/2021 7:50 PM Age: 76 years old Clinical indication: Injury or trauma; Fall; Concussion/head injury; Patient HX: Fell backward off of a single step and struck her head on garage floor. No loss of consciousness. Large hematoma to the occipital region. HX of stroke per PT chart TECHNIQUE: Imaging protocol: Computed tomography images of the cervical spine without contrast. Radiation optimization: All CT scans at this facility use at least one of these dose optimization techniques: automated exposure control; mA and/or kV adjustment per patient size (includes targeted exams where dose is matched to clinical indication); or iterative reconstruction. COMPARISON: CT head wo con* [id number] 12/02/2021 7:45 PM RADIATION DOSE METRICS: Total DLP (mGy-cm): 527.31 FINDINGS: Bones/joints: There is no fracture. Cervical vertebral bodies maintain their height. There is minimal anterolisthesis at C6-C7 and C7-T1. Alignment is otherwise normal. There is no fracture of the posterior elements. Discs/Spinal canal/Neural foramina: There is no central stenosis in the cervical spine. There is foraminal stenosis most severe on the right at C3-C4. Lungs: Lung apices are normal. Soft tissues: Unremarkable. CT/CT cervical spin wo con* [id number] IMPRESSION: No fracture of the cervical spine
--- NOTE | 2021-12-02 18:52 | W.ED.FALL ---
HPI - Fall General: Chief Complaint: Fall Stated Complaint: Hit Head Time Seen by Provider: 12/02/21 18:51 History of Present Illness: 76-year-old female comes in today for complaints of injury to the occipital scalp. Patient does take Plavix routinely and reportedly was stepping back on a step and tripped causing her to fall backwards and strike her head against the concrete floor. Patient denied any loss of consciousness. Patient came in due to increased swelling to the occipital scalp. Patient is alert and oriented. Patient responds appropriately to questions. Patient ambulates with minimal to no assistance. Associated symptoms-after fall: Denies chest pain, headache(s) or neck pain Review of Systems General: Reports: 10 or more systems reviewed and unremarkable except in HPI and below Const: Denies: fever(s) Eyes: Denies: change in vision ENMT: Denies: throat pain Card: Denies: chest pain Resp: Denies: dyspnea GI: Denies: nausea or vomiting : Denies: difficulty voiding Musc: Denies: neck pain Skin/Breast: Denies: rash Neuro: Denies: headache(s) [facility] ED PFSH: Medical History (Updated 12/02/21 @ 20:02 by Robinson Watters [facility]) Cataract History of heart attack History of high blood pressure History of stroke Primary osteoarthritis of right knee Surgical History History of carpal tunnel release Social History Smoking and tobacco status: former smoker Alcohol intake: current Alcohol intake frequency: few times a week Physical Exam Const: COMMON NORMALS: alert HENMT: COMMON NORMALS: TM's normal bilaterally and Normal external nose present HEAD & SCALP: scalp tenderness (Significant swelling to the occipital scalp) NOSE: Normal external nose present TYMPANIC MEMBRANE: TM's normal bilaterally MOUTH: Normal oral and palatal mucosa present Neck/C-Spine: COMMON NORMALS: full ROM Chest: COMMONS NORMALS: normal palpation of entire chest wall Resp: COMMON NORMALS: normal respiratory effort Cardio: COMMON NORMALS: regular rate RATE: regular rate GI: COMMON NORMALS: non-tender Extremity: COMMON NORMALS: normal to inspection and full ROM Neuro: SENSORIUM/ORIENTATION: Yes alert Skin: COMMON NORMALS: no rashes or lesions noted GENERAL SKIN EXAM: no rashes or lesions noted Course Vital Signs: Vital signs: Vital Signs Temperature 97.9 F 12/02/21 18:40 Pulse Rate 84 12/02/21 18:40 Respiratory Rate 18 12/02/21 18:40 Blood Pressure 128/77 12/02/21 18:40 Pulse Oximetry 96 12/02/21 18:40 MDM - Fall Medical Decision Making Patient comes in for evaluation of injury to the head. Patient had stepped back on her porch steps losing her balance causing her to fall backwards and strike her head against the concrete floor. Patient has significant swelling to the occipital scalp area. No break in skin is noted. Patient is appropriate with answering questions normally. Patient reports a mild headache. Vital signs are normal. Differential diagnosis includes skull fracture, intracranial bleeding, contusion of the scalp. CT of the head showed no intracranial bleeding or skull fracture. Patient had no complaints of pain in the neck. CT of the neck was unremarkable except for degenerative changes. Reviewed exam with patient with recommendations for follow-up with primary care or return to the ER for new concerns. Lab Data Radiology Impressions Head CT 12/02/21 18:30 IMPRESSION: 1. Mild chronic microvascular disease with a small old lacunar infarcts. 2. No acute intracranial injury or lesion and no change from prior scan. Discharge Plan Discharge Patient Disposition: Home Clinical Impression: Fall Qualifiers: Encounter type: initial encounter Qualified Code(s): W19.XXXA - Unspecified fall, initial encounter Contusion of scalp Qualifiers: Encounter type: initial encounter Qualified Code(s): S00.03XA - Contusion of scalp, initial encounter Condition: Stable Prescriptions: No Action clopidogrel 75 mg tablet 75 mg PO DAILY@0800 0RF metoprolol succinate 50 mg tablet extended release 24 hr 50 mg PO DAILY@0800 0RF citalopram 10 mg tablet 10 mg PO DAILY@0800 0RF amlodipine 5 mg tablet 5 mg PO DAILY@2129 0RF spironolactone [Aldactone] 25 mg tablet 25 mg PO DAILY 0RF nitroglycerin 0.4 mg tablet, sublingual 0.4 mg sublingual PRN 0RF rosuvastatin [Crestor] 20 mg tablet 20 mg PO DAILY@0800 0RF lisinopril 10 mg tablet 10 mg PO BID@0800,2130 0RF Discharge Orders: Discharge ED (Routine); Ordered 12/02/21 Ordered By: Robinson Watters Referrals: Gatito Biggs MD [Primary Care Provider] - Discharge Diet: Usual diet Discharge Activity: Increase activity as tolerated Patient Instructions: Head Injury (ED) Activity Restrictions/Additional Instructions: Home and rest. Acetaminophen for pain. Follow-up with primary care in 2 to 3 days for recheck. Return to ER for new concerns. Coding Level of Care Code ED Employment Educational Coord for [employer] F[employer] Exam Comprehensive
== END 2021-12-02 20:11 | disposition home or self-care (01) ==
PROVIDERS: Emergency Provider Nurse Practitioner Family; PCP Family Medicine
DX: S00.03XA Contusion of scalp, initial encounter (principal); W10.9XXA Fall (on) (from) unspecified stairs and steps, initial encounter
CPT/HCPCS: 70450; 72125; 99283

== ENCOUNTER 2022-04-08 13:56 | Outpatient (CLI) | payer MEDICARE, MEDICAID, SELFPAY ==
--- NOTE | 2022-04-08 14:30 | XR_ITS ---
WS: [id number] DEXA (DUAL ENERGY X-RAY ABSORPTIOMETRY) Bone mineral density was performed using a [employer] machine. HISTORY: osteoporosis screening COMPARISON: 01/21/2018 Lumbar spine BMD (L1-L4): 1.249 g/cm2 T score: 0.6 Z score: 2.3 Total hip BMD: Left: 0.774 g/cm2. T score: -1.9 Z score: 0.0 Right: 0.816 g/cm2. T score: -1.5 Z score: 0.3 10 year probability of a major osteoporotic fracture is 32.3%. Compared to the prior study from 01/21/2018. Lumbar spine bone mineral density has increased by 7.0%. Bilateral hips bone mineral density has decreased by 5.5%. XR/XR DEXA axial skeleton* [id number] IMPRESSION: OSTEOPENIA based upon the WHO classification for females. Significant decrease in bone mineral density within the hips. Significant increase in bone mineral density within the lumbar spine.
== END 2022-04-08 13:57 | disposition home or self-care (01) ==
LOC: RAD 13:57
PROVIDERS: PCP Family Medicine; Visit Provider Family Medicine
DX: Z13.820 Encounter for screening for osteoporosis (principal); M85.80 Other specified disorders of bone density and structure, unspecified site; Z78.0 Asymptomatic menopausal state
CPT/HCPCS: 77080

== ENCOUNTER → 2022-06-05 10:20 | Outpatient (BNVA) | payer MEDICARE, MEDICAID, SELFPAY | PROVIDERS: PCP Family Medicine; Visit Provider Family Medicine | DX: R53.83 Other fatigue (principal); I10 Essential (primary) hypertension; E78.5 Hyperlipidemia, unspecified; M85.80 Other specified disorders of bone density and structure, unspecified site; Z78.0 Asymptomatic menopausal state | CPT/HCPCS: 80053; 80061; 82306; 85025 ==

== ENCOUNTER → 2022-09-08 11:49 | Outpatient (BNVA) | payer MEDICARE, MEDICAID, SELFPAY | PROVIDERS: PCP Family Medicine; Visit Provider Family Medicine | DX: R41.3 Other amnesia (principal) | CPT/HCPCS: 82607 ==

== ENCOUNTER 2022-09-23 12:40 | Emergency (ER) | payer MEDICARE, MEDICAID, SELFPAY ==
[2022-09-23 12:52] VITALS: BP 117/82; PULSE 64; RESP 16; TEMP 36.7; O2SAT 97
--- NOTE | 2022-09-23 15:03 | CTR_ITS ---
PROCEDURE INFORMATION: Exam: CT Head Without Contrast Exam date and time: 09/23/2022 3:21 PM Age: 77 years old Clinical indication: Injury or trauma; Fall; Blunt trauma (contusions or hematomas); Altered mental status/memory loss; Additional info: Fall and confusion TECHNIQUE: Imaging protocol: Computed tomography of the head without contrast. Radiation optimization: All CT scans at this facility use at least one of these dose optimization techniques: automated exposure control; mA and/or kV adjustment per patient size (includes targeted exams where dose is matched to clinical indication); or iterative reconstruction. REPORTING DATA: Count of CT and Cardiac NM exams in prior 12 months: This patient has received 2 known CTs and 0 known cardiac nuclear medicine studies in the 12 months prior to the current study. COMPARISON: CT head wo con* [id number] 12/02/2021 7:45 PM RADIATION DOSE METRICS: Total DLP (mGy-cm): 1036.54 FINDINGS: Brain: No hemorrhage. No edema. Moderate diffuse cerebral atrophy and sequela of chronic small vessel ischemic disease. Old lacunar infarcts noted in the basal ganglia. No mass effect. Cerebral ventricles: No ventriculomegaly. Paranasal sinuses: Visualized sinuses are unremarkable. No fluid levels. Mastoid air cells: Visualized mastoid air cells are well aerated. Bones/joints: Unremarkable. No acute fracture. Soft tissues: Unremarkable. CT/CT head wo con* [id number] IMPRESSION: No acute intracranial abnormality.
--- NOTE | 2022-09-23 15:03 | XRR_ITS ---
PROCEDURE INFORMATION: Exam: XR Chest Exam date and time: 09/23/2022 2:14 PM Age: 77 years old Clinical indication: Other: Confusion TECHNIQUE: Imaging protocol: Radiologic exam of the chest. Views: 1 view. COMPARISON: CR XR chest 2V* [id number] 08/04/2020 1:38 PM FINDINGS: Lungs: Calcified granulomas noted in the right lung base. No consolidation. Pleural spaces: Unremarkable. No pleural effusion. No pneumothorax. Heart/Mediastinum: Unremarkable. No cardiomegaly. Bones/joints: Unremarkable. XR/XR chest 1V portable [id number] IMPRESSION: No acute findings.
--- NOTE | 2022-09-23 15:04 | ED_ITS ---
HPI - Fall General: Chief Complaint: Fall Stated Complaint: fall yesterday, confusion Time Seen by Provider: 09/23/22 14:48 Source: patient and family (Daughter) Mode of arrival: ambulatory Limitations: no limitations History of Present Illness: Daughter brings mother in because she is had increasing confusion over the past several days. There was a question whether she has Alzheimer's and is scheduled for a repeat evaluation for mental status evaluation at her primary care office sometime this week. Daughter thinks she is more confused over the past several days than previous. There is some as sociated history that she had a trip and fall yesterday when she was feeding dogs. She denied loss of consciousness. She apparently has a history of taking Plavix for cardiovascular condition but she does not remember nor does her daughter aware. She has not had any fevers or chills. She is states that she did not eat this morning and she cannot remember what she ate last night. She states she does drink alcohol several days weekly but not every day. When asked how much she drank she states she drinks enough to make her head spin. Fall witnessed: no Loss of consciousness: None Associated symptoms-after fall: Denies chest pain, headache(s) or neck pain Review of Systems Const: Denies: fever(s) or chills Eyes: Denies: change in vision ENMT: Denies: throat pain or odynophagia Card: Denies: chest pain, palpitations, syncope or pre-syncope Resp: Denies: dyspnea, productive cough or non-productive cough GI: Denies: nausea, vomiting or diarrhea : Denies: flank pain, difficulty voiding or dysuria Musc: Denies: neck pain, back pain, extremity pain or extremity swelling Skin/Breast: Denies: rash or pruritus Neuro: Denies: headache(s), numbness in extremities or weakness in extremities Psych: Denies: anxiety or depression Deon/Lymph: Reports: easy bruising; Denies: easy bleeding PFSH ED PFSH: Medical History Cholelithiases Depression, major, in partial remission Diverticulosis Dyslipidemia Fracture Risk Assessment Score (FRAX) indicating greater than 20% risk for major osteoporosis-related fracture Hiatal hernia History of heart attack anteroapical CT History of kidney stones History of stroke basal ganglia lacunar infarcts Hypertension Mitral valve annular calcification Osteopenia Osteopenia after menopause Primary osteoarthritis of right knee Surgical History History of carpal tunnel release History of cataract surgery History of total knee arthroplasty left Family History Mother CAD (coronary artery disease) Father CAD (coronary artery disease) Sister Dementia Brother CAD (coronary artery disease) Social History Smoking and tobacco status: current every day smoker cigarettes [ Other cigarette details: started age 74, 2 packs per week] Alcohol intake: current Alcohol intake frequency: few times a week Lives independently: Yes Household members: none Physical Exam Narrative: EXAM NARRATIVE: CooperativeShe appears stated age. She and answers questions in a goal-directed fashion. Const: COMMON NORMALS: no acute distress, average body habitus, patient oriented x3 and alert GENERAL APPEARANCE: cooperative and comfortable ORIENTATION/CONSCIOUSNESS: Yes awake, Yes oriented to person and Yes oriented to place HENMT: COMMON NORMALS: normocephalic, atraumatic, Normal nasal mucous membranes and turbinates present and moist oral mucous membranes HEAD & SCALP: normocephalic and atraumatic FACE & SINUS: normal facial exam and face symmetric NOSE: Normal nasal mucous membranes and turbinates present Eye: COMMON NORMALS: Equal, round and reactive pupils present, EOMs intact bilaterally and conjunctivae normal CONJUNCTIVA: Yes conjunctivae normal PUPIL: Yes Equal, round and reactive pupils present Neck/C-Spine: COMMON NORMALS: full ROM CERVICAL SPINE: Yes cervical ROM normal, No Cervical spine tenderness, No step off deformity, No Paracervical spasm and No Trapezius muscle tenderness Chest: COMMONS NORMALS: normal inspection of the chest and normal palpation of entire chest wall Resp: COMMON NORMALS: normal respiratory effort, No retractions, No use of accessory muscles and clear to auscultation bilaterally AUSCULTATION: clear to auscultation bilaterally Cardio: COMMON NORMALS: regular rate, regular rhythm, No murmurs present (Cardio) and Peripheral pulses 2+ throughout RATE: regular rate RHYTHM: regular rhythm PERIPHERAL PULSES: Peripheral pulses 2+ throughout GI: COMMON NORMALS: Normal to inspection, nondistended, normoactive bowel sounds present, Soft to palpation and non-tender PALPATION: Yes Soft to palpation : COMMON NORMALS: Yes no CVA tenderness BLADDER/KIDNEY EXAM: Yes no CVA tenderness Back/Pelvis: COMMON NORMALS: no CVA tenderness, thoracic and lumbar spine normal to inspection, no thoracic nor lumbar tenderness and thoraco-lumbar ROM normal Extremity: COMMON NORMALS: normal to inspection, full ROM, capillary refill normal, no calf tenderness and no pedal edema Neuro: COMMON NORMALS: patient oriented x3, moves all extremities, no focal motor deficits and no sensory deficits noted SENSORIUM/ORIENTATION: Yes alert, Yes oriented to person, Yes oriented to place and Yes other (She is able to relate current events to include president, turns about past) CRANIAL NERVES: Yes CN normal except as noted Psych: COMMON NORMALS: mental status grossly normal, denies hallucinations, denies homicidal ideation and denies suicidal ideation Course Vital Signs: Vital signs: Vital Signs Temperature 98.1 F 09/23/22 12:52 Pulse Rate 64 09/23/22 12:52 Respiratory Rate 16 09/23/22 12:52 Blood Pressure 117/82 09/23/22 12:52 Pulse Oximetry 97 09/23/22 12:52 Oxygen Delivery Me thod 09/23/22 12:52 MDM - Fall Medical Decision Making This patient transported the emergency department by family members because of concern about confusion. She has a known history of dementia but also had a recent fall and so that peaked they are interested in making sure that there is no other acute changes. There is no history of systemic illness such as fever, cough, nausea vomiting diarrhea chest pain etc. Her clinical examination reveals her to be alert and having some intact cognitive functioning that she she was aware of herself surrounding approximate date and current events. No other focal findings on clinical examination. Ancillary studies were obtained which revealed no evidence of intracranial hemorrhage or other intracranial injury on a noncontrasted CT scan. Her chest x-ray and other lab work also reassuring without any evidence of infection or other potential reversible causes for her symptoms. It would appear at this time that this is likely progression in a stepwise fashion of her chronic dementia. I spent some time discussing this with the patient as well as her family member in the emergency department. We discussed the need for consideration for longer term care, assisted living etc. She is to follow-up with primary care doctor in the next week to 10 days to review medications, do further testing also discuss any additional care concerns. They were appreciative of care and stable at this time of discharge. Medical Records I reviewed the patient's medical records. Lab Data I reviewed the patient's lab results. 09/23/22 15:48 09/23/22 15:48 Radiology Impressions Chest X-Ray 09/23/22 15:03 IMPRESSION: No acute findings. Head CT 09/23/22 15:03 IMPRESSION: No acute intracranial abnormality. Laboratory Results WBC 4.8 10^3/uL (4.0-10.0) 09/23/22 15:48 RBC 3.94 10^6/uL (4.1-5.3) L 09/23/22 15:48 Hgb 12.8 g/dL (11.5-15.3) 09/23/22 15:48 Hct 38.1 % (37.0-47.0) 09/23/22 15:48 MCV 96.7 fl (81-99) 09/23/22 15:48 MCH 32.5 pg (28.0-34.0) 09/23/22 15:48 MCHC 33.6 g/dL (30.0-36.0) 09/23/22 15:48 RDW 12.3 % (12.1-15.1) 09/23/22 15:48 Plt Count 214 10^3/cmm (130-400) 09/23/22 15:48 MPV 9.8 fL (7.4-10.4) 09/23/22 15:48 Neut % (Auto) 60.6 % 09/23/22 15:48 Lymph % (Auto) 27.2 % 09/23/22 15:48 [place] % (Auto) 8.9 % 09/23/22 15:48 Eos % (Auto) 2.3 % 09/23/22 15:48 Baso % (Auto) 0.8 % 09/23/22 15:48 Neut # (Auto) 2.91 10^3/uL (1.8-7.7) 09/23/22 15:48 Lymph # (Auto) 1.3 10^3/uL (0.8-4.8) 09/23/22 15:48 [place] # (Auto) 0.4 10^3/uL (0.2-0.9) 09/23/22 15:48 Eos # (Auto) 0.1 10^3/uL (0.0-0.8) 09/23/22 15:48 Baso # (Auto) 0.0 10^3/uL (0.0-0.1) 09/23/22 15:48 Nucleated RBC % (auto) 0 % 09/23/22 15:48 Nucleated RBCs # 0.0 /100WBC 09/23/22 15:48 Sodium 139 mmol/L (136-145) 09/23/22 15:48 Potassium 4.1 mmol/L (3.5-5.1) 09/23/22 15:48 Chloride 100 mmol/L (98-107) 09/23/22 15:48 Carbon Dioxide 26 mmol/L (22-29) 09/23/22 15:48 Anion Gap 17.1 (5-19) 09/23/22 15:48 BUN 19 mg/dL (8-23) 09/23/22 15:48 Creatinine 0.9 mg/dL (0.5-0.9) 09/23/22 15:48 GFR Calculation Not Reportable 09/23/22 15:48 Glucose 83 mg/dL (65-115) 09/23/22 15:48 Calculated Osmolality 289 mOsm/kg (285-295) 09/23/22 15:48 Calcium 9.4 mg/dL (8.5-10.5) 09/23/22 15:48 Total Bilirubin 0.6 mg/dL (0.15-1.2) 09/23/22 15:48 AST 45 U/L (0-32) H 09/23/22 15:48 ALT 36 U/L (0-33) H 09/23/22 15:48 Alkaline Phosphatase 55 U/L (35-105) 09/23/22 15:48 Total Protein 7.4 g/dL (6.6-8.7) 09/23/22 15:48 Albumin 4.6 g/dL (3.5-5.2) 09/23/22 15:48 Globulin 2.8 g/dL (1.3-4.6) 09/23/22 15:48 TSH 1.63 uIU/mL (0.27-4.20) 09/23/22 15:48 Urine Color Yellow (Yellow) 09/23/22 17:24 Urine Appearance Clear (CLEAR) 09/23/22 17:24 Urine pH 5 (5-7) 09/23/22 17:24 Ur Specific [place] 1.020 (1.005-1.030) 09/23/22 17:24 Urine Protein Trace (Negative) 09/23/22 17:24 Urine Glucose (UA) Norm (Normal) 09/23/22 17:24 Urine Ketones 1+ (Negative) H 09/23/22 17:24 Urine Blood Neg (Negative) 09/23/22 17:24 Urine Nitrate Negative (Negative) 09/23/22 17:24 Urine Bilirubin 1+ (Negative) H 09/23/22 17:24 Urine Urobilinogen 1 mg/dL (Negative) H 09/23/22 17:24 Ur Leukocyte Esterase Negative (Negative) 09/23/22 17:24 Urine RBC None /hpf (0-2) 09/23/22 17:24 Urine WBC 0-4 /hpf (0-5) H 09/23/22 17:24 Ur Squamous Epith Cells 0-4 /hpf (0-5) H 09/23/22 17:24 Amorphous Sediment Trace /hpf 09/23/22 17:24 Urine Bacteria Trace /hpf (NONE) 09/23/22 17:24 Ethyl Alcohol < 10 mg/dL (0-10) 09/23/22 15:48 EKG Data EKG 1: I personally reviewed and interpreted this EKG as follows: Interpretation: Contemporaneous review of this EKG reveals a ventricular rate of 62 bpm. TX i nterval is borderline QRS duration is normal. Corrected QT intervals normal normal axis. No acute ST-T wave changes. Discharge Plan Discharge Patient Disposition: Home Clinical Impression: Dementia Condition: Stable Prescriptions: No Action metoprolol succinate 50 mg tablet extended release 24 hr 50 mg PO DAILY Qty: 90 1RF citalopram 40 mg tablet 40 mg PO DAILY Qty: 30 0RF nortriptyline 10 mg capsule 10 mg PO DAILY Qty: 30 0RF clopidogrel 75 mg tablet 75 mg PO DAILY amlodipine 10 mg tablet 10 mg PO DAILY rosuvastatin 20 mg tablet 20 mg PO DAILY Discharge Orders: Discharge ED (Routine); Ordered 09/23/22 Ordered By: Bola Melendrez Referrals: Edie Saeed MD [Primary Care Provider] - 1 week Discharge Diet: Usual diet Discharge Activity: Increase activity as tolerated Patient Instructions: Opioid Safety, Pain Management Activity Restrictions/Additional Instructions: As we discussed no evidence of a treatable or reversible cause of some of her memory and other symptoms likely related to ongoing dementia. Continue prescribed medications and follow-up with her primary care doctor within the next week to 10 days to do further neurocognitive testing and discussion of treatment options and/or medication regimen. If it anytime she has any new or worsening symptoms you are welcome to return to the emergency department for reevaluation. Coding Level of Care Code ED [employer] Professor for Bennett Arroyo
--- NOTE | 2022-09-23 15:10 | ECG_ITS ---
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 Measurements Intervals [place] Rate: 62 P: 44 AL: 206 QRS: 11 QRSD: 89 T: 42 QT: 427 QTc: 435 Interpretive Statements SINUS RHYTHM LOW QRS VOLTAGE IN PRECORDIAL LEADS [QRS DEFLECTION < 1.0 mV IN CHEST LEADS] Compared to ECG 08/04/2020 13:31:29 Low QRS voltage now present Myocardial infarct finding no longer present Electronically Signed On 09-24-2022 0:31:11 CDT by David Hernandez M.D. [id number]
--- NOTE | 2022-09-23 15:17 | PC.NURSE ---
xray at bedside. pt is alert and oriented to person, place, and time. pt to be taken to CT after xray
[2022-09-23 16:07] LABS: Basophils % 0.8 %; Eosinophils # 0.1 10^3/uL (0.0-0.8); Eosinophils % 2.3 %; Hematocrit 38.1 % (37.0-47.0); Hemoglobin 12.8 g/dL (11.5-15.3); Lymphocytes # 1.3 10^3/uL (0.8-4.8); Lymphocytes % 27.2 %; Mean Corpuscular HGB Conc 33.6 g/dL (30.0-36.0); Mean Corpuscular Hemoglobin 32.5 pg (28.0-34.0); Mean Corpuscular Volume 96.7 fl (81-99); Mean Platelet Volume 9.8 fL (7.4-10.4); Monocytes # 0.4 10^3/uL (0.2-0.9); Monocytes % 8.9 %; Neutrophils # 2.91 10^3/uL (1.8-7.7); Neutrophils % 60.6 %; Nucleated Red Blood Cells % 0 %; Platelet Count 214 10^3/cmm (130-400); Red Blood Count 3.94 10^6/uL (4.1-5.3); Red Cell Distribution Width 12.3 % (12.1-15.1); White Blood Count 4.8 10^3/uL (4.0-10.0)
[2022-09-23 16:47] LABS: Alanine Aminotransferase 36 U/L (0-33); Albumin Level 4.6 g/dL (3.5-5.2); Alkaline Phosphatase 55 U/L (35-105); Aspartate Amino Transferase 45 U/L (0-32); Blood Urea Nitrogen 19 mg/dL (8-23); Calcium 9.4 mg/dL (8.5-10.5); Carbon Dioxide 26 mmol/L (22-29); Chloride 100 mmol/L (98-107); Globulin 2.8 g/dL (1.3-4.6); Glucose 83 mg/dL (65-115); Osmolality Calculated 289 mOsm/kg (285-295); Sodium 139 mmol/L (136-145); Thyroid Stimulating Hormone 1.63 uIU/mL (0.27-4.20); Total Bilirubin 0.6 mg/dL (0.15-1.2); Total Protein 7.4 g/dL (6.6-8.7)
[2022-09-23 16:50] LABS: Alcohol Level < 10 mg/dL (0-10)
[2022-09-23 16:51] LABS: Anion Gap 17.1 (5-19); Potassium 4.1 mmol/L (3.5-5.1)
[2022-09-23 18:25] LABS: Bilirubin Urine 1+ (Negative); Blood Urine Neg (Negative); Glucose Urine UA Norm (Normal); Ketones Urine 1+ (Negative); Leukocyte Esterase Urine Negative (Negative); Nitrate Urine Negative (Negative); Protein Urine Trace (Negative); Urine Appearance Clear (CLEAR); Urine Color Yellow (Yellow); Urobilinogen Urine 1 mg/dL (Negative); pH Urine 5 (5-7)
[2022-09-23 18:26] LABS: Add Urine Culture? No; Add Urine Microscopic? YES; Amorphous Sediment Urine TRACE /hpf; Bacteria Urine TRACE /hpf; Squamous Epithelial Cell Urine 0-4 /hpf (0-5); WBC Urine 0-4 /hpf (0-5)
--- NOTE | 2022-09-23 18:51 | PC.NURSE ---
report given to Ian
[2022-09-23 19:30] VITALS: BP 119/77; PULSE 66; RESP 16; O2SAT 95
== END 2022-09-23 19:31 | disposition home or self-care (01) ==
PROVIDERS: Emergency Provider Emergency Medicine; PCP Family Medicine
DX: F03.90 Unspecified dementia, unspecified severity, without behavioral disturbance, psychotic disturbance, mood disturbance, and anxiety (principal); Z79.02 Long term (current) use of antithrombotics/antiplatelets; F17.210 Nicotine dependence, cigarettes, uncomplicated; E78.5 Hyperlipidemia, unspecified; I25.2 Old myocardial infarction; Z86.73 Personal history of transient ischemic attack (TIA), and cerebral infarction without residual deficits; I10 Essential (primary) hypertension
CPT/HCPCS: 36415; 70450; 71045; 80053; 80307; 81001; 84443; 85025; 93005; 99285

== ENCOUNTER → 2022-10-06 14:58 | Outpatient (BNVA) | payer MEDICARE, MEDICAID, SELFPAY | PROVIDERS: PCP Family Medicine; Visit Provider Family Medicine | DX: R30.0 Dysuria (principal) | CPT/HCPCS: 81000; 87077; 87086; 87184 ==

== ENCOUNTER → 2022-12-23 10:22 | Outpatient (BNVA) | payer MEDICARE, MEDICAID, SELFPAY | PROVIDERS: PCP Family Medicine; Visit Provider Psychiatry & Neurology Neurology | DX: R41.3 Other amnesia (principal); I25.2 Old myocardial infarction; I10 Essential (primary) hypertension; Z86.73 Personal history of transient ischemic attack (TIA), and cerebral infarction without residual deficits; M81.0 Age-related osteoporosis without current pathological fracture; R60.0 Localized edema; M17.11 Unilateral primary osteoarthritis, right knee; F17.210 Nicotine dependence, cigarettes, uncomplicated; Z98.890 Other specified postprocedural states; F10.91 Alcohol use, unspecified, in remission | CPT/HCPCS: 36415; 80053; 82306; 82607; 82746; 83735; 83921; 84439; 84443; 84481; 85025; 85651; 86140; 86160; 86162; 86235; 86255; 86376; 86431; 86780; 99203 ==

== ENCOUNTER → 2023-01-14 10:14 | Outpatient (BNVA) | payer MEDICARE, MEDICAID, SELFPAY | PROVIDERS: PCP Family Medicine; Referring Provider Psychiatry & Neurology Neurology; Visit Provider Psychiatry & Neurology Neurology | DX: G93.40 Encephalopathy, unspecified (principal); R41.0 Disorientation, unspecified | CPT/HCPCS: 95813 ==

== ENCOUNTER → 2023-02-02 14:25 | Outpatient (BNVA) | payer MEDICARE, MEDICAID, SELFPAY | PROVIDERS: PCP Family Medicine; Visit Provider Internal Medicine Cardiovascular Disease | DX: I25.10 Atherosclerotic heart disease of native coronary artery without angina pectoris (principal); E78.5 Hyperlipidemia, unspecified; I10 Essential (primary) hypertension; I25.5 Ischemic cardiomyopathy; F17.210 Nicotine dependence, cigarettes, uncomplicated | CPT/HCPCS: 99204 ==

== ENCOUNTER 2023-02-04 15:17 | Outpatient (CLI) | payer MEDICARE, MEDICAID, SELFPAY ==
--- NOTE | 2023-02-04 15:15 | MR_ITS ---
WS: [id number] MRI BRAIN WITHOUT CONTRAST HISTORY: R41.3 - Other amnesia COMPARISON: 09/30/2010, CT head 09/23/2022 TECHNIQUE: Diffusion imaging, multiplanar T1, T2 and FLAIR imaging obtained. Degraded quality by motion artifact. No acute infarct. Diffusion weighted imaging is normal. No hemorrhage or susceptibility artifact. Mild bilateral symmetric atrophy. Moderate progression of small vessel ischemic type changes since 11. Remote lacunar infarct in the right carney radiata. Mild small vessel ischemic changes are now pr esent within the chester. No large territory infarct. Ventricles and extra-axial spaces are normal. No inferior displacement of cerebellar tonsils. The sella turcica and pituitary gland are unremarkabl e. Dural venous sinuses and sun'aq of Sears demonstrate no abnormality on this unenhanced studies. Paranasal sinuses: Clear. Mastoid air cells: Normal. Calvarium and scalp: Intact. IMPRESSION: 1. No acute infarct or hemorrhage. 2. Moderate progression of small vessel ischemic type changes and right carney radiata lacunar infar ct since 2010.
== END 2023-02-04 15:18 | disposition home or self-care (01) ==
PROVIDERS: PCP Family Medicine; Visit Provider Psychiatry & Neurology Neurology
DX: R41.3 Other amnesia (principal); Z86.73 Personal history of transient ischemic attack (TIA), and cerebral infarction without residual deficits
CPT/HCPCS: 70551

== ENCOUNTER 2023-02-16 10:15 | Outpatient (CLI) | payer MEDICARE, MEDICAID, SELFPAY ==
--- NOTE | 2023-02-16 | ECG_ITS ---
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 Interpretive Statements NAME OF STUDY: LEXISCAN SESTAMIBI STRESS TEST INDICATION: OLD TX; CARDIOMYOPATHY PROCEDURE: At the baseline, the EKG revealed sinus bradycardia with a rate of 57 bpm. Poor R wave progression. Some nonspecific T wave changes.. The baseline heart was 57 bpm with a blood pressue of 145/66 mm of Hg Lexiscan was infused over a period of 20 seconds. A total of 0.4 milligrams of Lexiscan was infused. The stress phase was continued for a total of 5 minutes. Heart rate at the end of the stress phase was 69 bpm with a blood pressure 129/72 mm of Hg. The EKG at the peak infusion revealed no significant changes sestamibi was injected 20 seconds after the Lexiscan infusion. Heart rate at the end of the recovery phase was 76 bpm and the blood pressure was not taken. CONCLUSION: 1. No significant EKG changes with the Lexiscan infusion 2. No LexiScan induced chest pain or cardiac arrhythmia 3. Normal blood pressure and heart rate response 4. Sestamibi/sestamibi perfusion scan pending; see separate report. Electronically Signed On 02-23-2023 11:14:58 CDT by David Hernandez M.D. [id number]
[2023-02-16 10:33] VITALS: BMI 28.7
--- NOTE | 2023-02-16 10:38 | NMCV_ITS ---
NM heidy perf SPECT r/s* [id number] Emma Santos (Sharon) Age: 77 Gender: F : 1945 Exam Date: 02/16/2023 10:38 Ordering Phys: David Hernandez MD ([email or web address]) Technologist: ANDREA Britton Exam Location: [facility] Indications: CORONARY ANGIOPLASTY STATUS STRESS TEST [facility] IMAGE PROTOCOL Rest/Stress 1 Lexiscan Day Radiopharmaceutical Dose (mCi) Administration Site Administered by Rest: Tc-99m 10.6 IV ANDREA Britton Sestamibi Stress:Tc-99m 33.0 IV ANDREA Britton Sestamibi Rest: 16-Feb-2023 60 Discovery 630 Stress: 16-Feb-2023 30 Discovery 630 0.4mg Lexiscan. Supine position only as patient was unable to lay prone. SPECT RESULTS Technical Quality: Excellent Raw Data Analysis: Normal Image Corrections: No attenuation or motion correction applied Summed Stress Score: 2 Summed Rest Score: 1 Summed Difference Score: 1 PERFUSION FINDINGS A small area of moderately decreased tracer uptake was noted in the mid inferolateral region. Some reversibility was noted in this region. FUNCTIONAL RESULTS (calculated via Gated SPECT) Stress Image LV EF (%): 87 Stress EDV (mL):67 TID: 1.18 Stress ESV (mL):9 FUNCTIONAL FINDINGS: Segmental wall motion analysis revealing no gross wall motion abnormalities IMPRESSIONS 1. Myocardial perfusion imaging revealing small area of decreased tracer uptake in the mid inferolateral region with some reversibility suggesting myocardial scarring with ischemia in the distribution of the left circumflex artery. Ischemic burden appears to be very small. 2. Normal LV ejection fraction of 87%. 3. LV wall motion analysis revealing no gross wall motion abnormalities. 4. Normal LV volume 5. Slightly elevated transient ischemic dilatation ratio of 1.18 may suggest endocardial ischemia. However the positive predictive value of this finding is imited. Clinical correlation is recommended Dr David Hernandez MD FACC (Electronically Signed) Final Date: 17 February 2023 08:19 S
[2023-02-16] MEDS: regadenoson 0.4 Mg/5 ml Syringe IVP (13:25)
[2023-02-16 13:39] VITALS: BP 129/72; PULSE 65
== END 2023-02-16 10:16 | disposition home or self-care (01) ==
LOC: CDL 10:17
PROVIDERS: PCP Family Medicine; Visit Provider Internal Medicine Cardiovascular Disease
DX: I42.9 Cardiomyopathy, unspecified (principal); I25.2 Old myocardial infarction
CPT/HCPCS: 36415; 78452; 93017; 96374; 99204; A9500; J2785

== ENCOUNTER 2023-02-17 15:07 | Outpatient (CLI) | payer MEDICARE, MEDICAID, SELFPAY ==
--- NOTE | 2023-02-17 15:15 | USCV_ITS ---
Aorto-Iliac Duplex Emma Santos (Sharon) Age: 77 Gender: F : 1945 Exam Date: 02/17/2023 15:18 Ordering Phys: David Hernandez MD ([email or web address]) Technologist: Darrell Barnes Exam Location: [facility] [place], [place] Indication: HX OF UT BP: 130 / 80 HR: 61 Rhythm: Sinus Technical Quality: Adequate MEASUREMENTS (Male / Female) Normal Values 2D ECHO LV Diastolic Diameter PLAX 4.5 cm 4.2 - 5.9 / 3.9 - 5.3 cm LV Systolic Diameter PLAX 3.1 cm IVS Diastolic Thickness 1.2 cm 0.6 - 1.0 / 0.6 - 0.9 cm IVS Systolic Thickness 1.5 cm LVPW Diastolic Thickness 1.4 cm 0.6 - 1.0 / 0.6 - 0.9 cm LVPW Systolic Thickness 1.1 cm LVOT Diameter 2.0 cm LV Ejection Fraction 2D Teich 60.5 % LV Ejection Fraction MOD 2C 74.2 % LV Ejection Fraction 2C AL 74.3 % LA Diameter 3.9 cm IVC Diameter 1.2 cm M-MODE Aortic Annulus Diameter 3.0 cm LA Ao Ratio MM 1.2 MV E Point Septal Separation 1.0 cm DOPPLER AV Peak Velocity 144.0 cm/s LVOT Peak Velocity 108.0 cm/s AV Area Cont Eq vti 3.4 cm squared AV Area Cont Eq pk 2.4 cm squared MV Area PHT 5.0 cm squared Mitral E to A Ratio 0.8 MV E' Velocity 100.0 cm/s TR Peak Velocity 227.0 cm/s TR Peak Gradient 20.6 mmHg TV Peak E Velocity 76.0 cm/s Right Atrial Pressure 3.0 mmHg Pulmonary Artery Systolic Pressu 23.6 mmHg RV Acceleration Time 0.1 s FINDINGS Left Ventricle Normal left ventricular size and systolic function, EF 71 %. Mild left ventricular hypertrophy. No regional wall motion abnormalities. Grade I/IV diastolic dysfunction (abnormal relaxation filling pattern), normal to mildly elevated filling pressures. Right Ventricle The right ventricle is normal in size and function. Right Atrium The right atrium is normal in size. Left Atrium The left atrium is normal in size. Mitral Valve Thickened mitral valve. Mild mitral annular calcification. Aortic Valve Minimally thickened aortic valve Tricuspid Valve No gross abnormalities noted Pulmonic Valve Pulmonic valve not well visualized. Pericardium Normal pericardium without effusion. Aorta Normal ascending aorta dimension. IVC Normal inferior vena cava. CONCLUSIONS Normal left ventricular size and systolic function, EF 71 %. Mild left ventricular hypertrophy. No regional wall motion abnormalities. Grade I/IV diastolic dysfunction (abnormal relaxation filling pattern), normal to mildly elevated filling pressures. The right ventricle is normal in size and function. Minimally thickened aortic valve Thickened mitral valve. Mild mitral annular calcification. There is no pericardial effusion. There are no intracardiac masses. Compared to the study from 08/27/2020, there may not be a significant change Dr David Hernandez MD FACC (Electronically Signed) Final Date: 20 February 2023 10:52 S
== END 2023-02-17 15:08 | disposition home or self-care (01) ==
LOC: RAD 15:10
PROVIDERS: PCP Family Medicine; Visit Provider Internal Medicine Cardiovascular Disease
DX: R06.09 Other forms of dyspnea (principal); I25.2 Old myocardial infarction; I34.81 Nonrheumatic mitral (valve) annulus calcification; I34.89 Other nonrheumatic mitral valve disorders
CPT/HCPCS: 93306

== ENCOUNTER → 2023-03-10 15:21 | Outpatient (BNVA) | payer MEDICARE, MEDICAID, SELFPAY | PROVIDERS: PCP Family Medicine; Visit Provider Psychiatry & Neurology Neurology | DX: F03.90 Unspecified dementia, unspecified severity, without behavioral disturbance, psychotic disturbance, mood disturbance, and anxiety (principal); Z86.73 Personal history of transient ischemic attack (TIA), and cerebral infarction without residual deficits; I25.2 Old myocardial infarction; F17.210 Nicotine dependence, cigarettes, uncomplicated; I10 Essential (primary) hypertension | CPT/HCPCS: 99212 ==

== ENCOUNTER → 2023-03-27 15:30 | Outpatient (BNVA) | payer MEDICARE, MEDICAID, SELFPAY | PROVIDERS: PCP Family Medicine; Visit Provider Registered Nurse Neonatal Intensive Care | DX: R39.9 Unspecified symptoms and signs involving the genitourinary system (principal); N39.0 Urinary tract infection, site not specified | CPT/HCPCS: 81000; 87086 ==

== ENCOUNTER → 2023-04-02 15:41 | Outpatient (BNVA) | payer MEDICARE, MEDICAID, SELFPAY | PROVIDERS: PCP Family Medicine; Visit Provider Family Medicine | DX: R39.9 Unspecified symptoms and signs involving the genitourinary system (principal); N39.0 Urinary tract infection, site not specified | CPT/HCPCS: 81000; 81003; 87086 ==

== ENCOUNTER → 2023-05-04 13:13 | Outpatient (BNVA) | payer MEDICARE, MEDICAID, SELFPAY | PROVIDERS: PCP Family Medicine; Visit Provider Family Medicine | DX: Z00.00 Encounter for general adult medical examination without abnormal findings (principal) | CPT/HCPCS: 87426 ==

== ENCOUNTER 2024-05-05 20:25 | Emergency (ER) | payer MEDICARE, MEDICAID, SELFPAY ==
[2024-05-05 20:33] VITALS: BP 182/88; PULSE 64; RESP 18; TEMP 36.6; O2SAT 96; BMI 30.1
--- NOTE | 2024-05-05 20:33 | CTR_ITS ---
PROCEDURE INFORMATION: Exam: CT Head Without Contrast Exam date and time: 05/05/2024 8:52 PM Age: 78 years old Clinical indication: Injury or trauma; Other: Headache post fall; Additional info: Fall, head injury TECHNIQUE: Imaging protocol: Computed tomography of the head without contrast. Radiation optimization: All CT scans at this facility use at least one of these dose optimization techniques: automated exposure control; mA and/or kV adjustment per patient size (includes targeted exams where dose is matched to clinical indication); or iterative reconstruction. COMPARISON: MR head wo con* [id number] 02/04/2023 4:04 PM RADIATION DOSE METRICS: Total DLP (mGy-cm): 1093.58 FINDINGS: Brain: No hemorrhage. No edema. Moderate diffuse cerebral atrophy and sequela of chronic small vessel ischemic disease. No mass effect. Cerebral ventricles: No ventriculomegaly. Paranasal sinuses: Visualized sinuses are unremarkable. No fluid levels. Mastoid air cells: Visualized mastoid air cells are well aerated. Bones: Unremarkable. No acute fracture. Soft tissues: Unremarkable. CT/CT head wo con* [id number] IMPRESSION: No acute intracranial abnormality.
--- NOTE | 2024-05-05 20:45 | ED_ITS ---
<Statement entered by AKI Escobedo - 05/06/24 03:14> I was asked by Dr. Cantu to monitor this patient while she was waiting to be discharged from the emergency department as there was a shift change. Patient had no acute change in baseline condition here in the ER prior to her discharge. Documented by User: Angelina Cantu MD 05/05/24 20:47 HPI - Fall General: Chief Complaint: Fall Stated Complaint: L arm LAC, Headache, Post Fall Time Seen by Provider: 05/05/24 20:35 History of Present Illness: 78-year-old female with a history of dem entia who tripped and fell and hit her head. She has a small skin tear on her left elbow. She did not lose consciousness. She has had no nausea or vomiting. She has had a headache. No altered mental status. No focal motor deficits. She lost her balance and fell. No syncope. Related Data Home Medications Medication Instructions Recorded Confirmed clopidogrel 75 mg tablet 75 mg PO DAILY 09/23/22 05/03/23 Previous Rx's Medication Instructions Recorded metoprolol succinate 50 mg See Rx Instructions .Route 11/12/22 tablet,extended release 24 hr .COMPLEX #90 tabs nortriptyline 10 mg capsule See Rx Instructions .Route 11/17/22 .COMPLEX #30 caps cyanocobalamin (vitamin B-12) 1,000 mcg IM .monthly #10 mL 12/31/22 1,000 mcg/mL injection solution alendronate 70 mg tablet See Rx Instructions .Route 03/09/23 .COMPLEX #12 tabs thiamine HCl (vitamin B1) 50 mg 100 mg (2 x 50 mg) PO DAILY #60 03/09/23 tablet tabs memantine 5 mg tablet 5 mg PO BID #90 tabs 03/10/23 citalopram 40 mg tablet See Rx Instructions .Route 03/23/23 .COMPLEX #90 tabs rosuvastatin 20 mg tablet See Rx Instructions .Route 04/14/23 .COMPLEX #90 tabs amlodipine 10 mg tablet See Rx Instructions .Route 04/28/23 .COMPLEX #90 tabs Allergies Allergy/AdvReac Type Severity Reaction Status Date / Time No Known Allergies Allergy Verified 03/27/23 15:29 Review of Systems Narrative: Constitutional symptoms: Negative except as documented in HPI. Skin symptoms: Negative except as documented in HPI. Eye symptoms: Negative except as documented in HPI. ENMT symptoms: Negative except as documented in HPI. Respiratory symptoms: Negative except as documented in HPI. Cardiovascular symptoms: Negative except as documented in HPI. Gastrointestinal symptoms: Negative except as documented in HPI. Genitourinary symptoms: Negative except as documented in HPI. Musculoskeletal symptoms: Negative except as documented in HPI. Neurologic symptoms: Negative except as documented in HPI. Psychiatric symptoms: Negative except as documented in HPI. Endocrine symptoms: Negative except as documented in HPI. PFSH ED PFSH: Medical History (Updated 05/05/24 @ 20:48 by Angelina Cantu MD) Depression Dementia Fracture Risk Assessment Score (FRAX) indicating greater than 20% risk for major osteoporosis-related fracture Osteopenia Osteopenia after menopause Mitral valve annular calcification Dyslipidemia Hypertension Cholelithiases Hiatal hernia History of kidney stones Diverticulosis History of stroke basal ganglia lacunar infarcts History of heart attack anteroapical GA Primary osteoarthritis of right knee Surgical History (Updated 04/28/23 @ 14:52 by Edie Saeed MD) History of cataract surgery History of total knee arthroplasty left History of carpal tunnel release Family History Mother CAD (coronary artery disease) Father CAD (coronary artery disease) Sister Dementia Brother CAD (coronary artery disease) Social History Smoking and tobacco/nicotine status: current every day tobacco/nicotine user cigarettes [ Other cigarette details: started age 74, 2 packs per week] Alcohol intake: current Alcohol intake frequency: few times a week Substance/Drug Use: never Lives independently: Yes Household members: none Physical Exam Narrative: EXAM NARRATIVE: General: Alert, no acute distress. Skin: Warm, dry. small skin tear on the left arm.. Head: Normocephalic, no bruising or indentions. Neck: Supple, trachea midline. Eye: Extraocular movements are intact. Ears, nose, mouth and throat: mucosa moist. Cardiovascular: Regular, Normal peripheral perfusion. Respiratory: Lungs are clear to auscultation, respirations are non-labored, breath sounds are equal, Symmetrical chest wall expansion. Gastrointestinal: Soft, Nontender, Non distended Musculoskeletal: Normal ROM, no deformity. Neurological: Alert and oriented, No focal neurological deficit observed. Psychiatric: Cooperative, appropriate mood & affect. Course Vital Signs: Vital signs: Vital Signs Temperature 98 F 05/05/24 20:33 Pulse Rate 62 05/05/24 21:51 Respiratory Rate 18 05/05/24 21:51 Blood Pressure 162/89 05/05/24 21:51 Pulse Oximetry 95 05/05/24 21:51 MDM - Fall Medical Decision Making CT head: No acute intracranial process. no intracranial hemorrhage, no evidence of infarct. no evidence of acute fracture.This was reviewed and interpreted by myself the ER physician. Assessment and plan: Fall Head injury Skin tear - Discharged home - Discussed plan with patient. Answered any questions. - Evaluation and treatment of this problem were appropriate in the emergency setting. Lab Data Radiology Impressions Head CT 05/05/24 20:33 IMPRESSION: No acute intracranial abnormality. Discharge Plan Discharge Patient Disposition: Home Clinical Impression: Fall, Head injury, Skin tear Condition: Stable Prescriptions: No Action memantine 5 mg tablet 5 mg PO BID Qty: 90 2RF Rx Instructions: 1 in am and 2 at night for one week then 2 in am and 2 in pm there after alendronate 70 mg tablet See Rx Instructions .ROUTE .COMPLEX Qty: 12 0RF Dose Instruction: TAKE 1 TABLET BY MOUTH every week Rx Instructions: TAKE 1 TABLET BY MOUTH every week thiamine HCl (vitamin B1) 50 mg tablet 100 mg PO DAILY Qty: 60 2RF metoprolol succinate 50 mg tablet extended release 24 hr See Rx Instructions .ROUTE .COMPLEX Qty: 90 1RF Dose Instruction: TAKE 1 TABLET BY MOUTH EVERY DAY Rx Instructions: TAKE 1 TABLET BY MOUTH EVERY DAY nortriptyline 10 mg capsule See Rx Instructions .ROUTE .COMPLEX Qty: 30 2RF Dose Instruction: take 1 capsule BY MOUTH EVERY DAY Rx Instructions: take 1 capsule BY MOUTH EVERY DAY cyanocobalamin (vitamin B-12) 1,000 mcg/mL solution 1,000 mcg IM .monthly Qty: 10 3RF citalopram 40 mg tablet See Rx Instructions .ROUTE .COMPLEX Qty: 90 0RF Dose Instruction: TAKE 1 TABLET BY MOUTH EVERY DAY Rx Instructions: TAKE 1 TABLET BY MOUTH EVERY DAY rosuvastatin 20 mg tablet See Rx Instructions .ROUTE .COMPLEX Qty: 90 1RF Dose Instruction: TAKE 1 TABLET BY MOUTH EVERY DAY Rx Instructions: TAKE 1 TABLET BY MOUTH EVERY DAY amlodipine 10 mg tablet See Rx Instructions .ROUTE .COMPLEX Qty: 90 1RF Dose Instruction: TAKE 1 TABLET BY MOUTH EVERY DAY Rx Instructions: TAKE 1 TABLET BY MOUTH EVERY DAY clopidogrel 75 mg tablet 75 mg PO DAILY Discharge Orders: Discharge ED (Routine); Ordered 05/05/24 Ordered By: Lisandra Garibay Referrals: Db Yap, [Primary Care Provider] - Discharge Diet: Usual diet Discharge Activity: Increase activity as tolerated Patient Instructions: Fall Prevention for Older Adults (ED), Opioid Safety, Pain Management Activity Restrictions/Additional Instructions: Thank you for choosing [facility] for your healthcare needs today. Please realize this is an emergency room and that we are providing you with a medical screening exam and this may not be complete and all inclusive of all the testing and or work up that you may need to determine your ailment or severity of your illness. You have been screened and evaluated and felt safe for discharge. Health conditions do change or evolve sometimes and as such it is important that you follow up with your Primary Doctor to be re checked, 3-5 days is a general good time frame for follow up. You are always welcome to return to the ED for re assessment if your symptoms are worsening or you have new concerns Coding Level of Care Code ED Fairground Operator for Chg Fwd Documented by User: AKI Escobedo 05/06/24 03:15 HPI - Fall General: Chief Complaint: Fall Stated Complaint: L arm LAC, Headache, Post Fall Time Seen by Provider: 05/05/24 20:35 Related Data Home Medications Medication Instructions Recorded Confirmed clopidogrel 75 mg tablet 75 mg PO DAILY 09/23/22 05/03/23 Previous Rx's Medication Instructions Recorded metoprolol succinate 50 mg See Rx Instructions .Route 11/12/22 tablet,extended release 24 hr .COMPLEX #90 tabs nortriptyline 10 mg capsule See Rx Instructions .Route 11/17/22 .COMPLEX #30 caps cyanocobalamin (vitamin B-12) 1,000 mcg IM .monthly #10 mL 12/31/22 1,000 mcg/mL injection solution alendronate 70 mg tablet See Rx Instructions .Route 03/09/23 .COMPLEX #12 tabs thiamine HCl (vitamin B1) 50 mg 100 mg (2 x 50 mg) PO DAILY #60 03/09/23 tablet tabs memantine 5 mg tablet 5 mg PO BID #90 tabs 03/10/23 citalopram 40 mg tablet See Rx Instructions .Route 03/23/23 .COMPLEX #90 tabs rosuvastatin 20 mg tablet See Rx Instructions .Route 04/14/23 .COMPLEX #90 tabs amlodipine 10 mg tablet See Rx Instructions .Route 04/28/23 .COMPLEX #90 tabs Allergies Allergy/AdvReac Type Severity Reaction Status Date / Time No Known Allergies Allergy Verified 03/27/23 15:29 PFSH ED PFSH: Medical History (Updated 05/05/24 @ 20:48 by Angelina Cantu MD) Depression Dementia Fracture Risk Assessment Score (FRAX) indicating greater than 20% risk for major osteoporosis-related fracture Osteopenia Osteopenia after menopause Mitral valve annular calcification Dyslipidemia Hypertension Cholelithiases Hiatal hernia History of kidney stones Diverticulosis History of stroke basal ganglia lacunar infarcts History of heart attack anteroapical GA Primary osteoarthritis of right knee Surgical History (Updated 04/28/23 @ 14:52 by Edie Saeed MD) History of cataract surgery History of total knee arthroplasty left History of carpal tunnel release Family History Mother CAD (coronary artery disease) Father CAD (coronary artery disease) Sister Dementia Brother CAD (coronary artery disease) Social History Smoking and tobacco/nicotine status: current every day tobacco/nicotine user cigarettes [ Other cigarette details: started age 74, 2 packs per week] Alcohol intake: current Alcohol intake frequency: few times a week Substance/Drug Use: never Lives independently: Yes Household members: none Course Vital Signs: Vital signs: Vital Signs Temperature 98 F 05/05/24 20:33 Pulse Rate 62 05/05/24 21:51 Respiratory Rate 18 05/05/24 21:51 Blood Pressure 162/89 05/05/24 21:51 Pulse Oximetry 95 05/05/24 21:51 MDM - Fall Lab Data Radiology Impressions Head CT 05/05/24 20:33 IMPRESSION: No acute intracranial abnormality. All radiology interpretation(s) finalized by discharge Discharge Plan Discharge Patient Disposition: Home Clinical Impression: Fall, Head injury, Skin tear Condition: Stable Prescriptions: No Action memantine 5 mg tablet 5 mg PO BID Qty: 90 2RF Rx Instructions: 1 in am and 2 at night for one week then 2 in am and 2 in pm there after alendronate 70 mg tablet See Rx Instructions .ROUTE .COMPLEX Qty: 12 0RF Dose Instruction: TAKE 1 TABLET BY MOUTH every week Rx Instructions: TAKE 1 TABLET BY MOUTH every week thiamine HCl (vitamin B1) 50 mg tablet 100 mg PO DAILY Qty: 60 2RF metoprolol succinate 50 mg tablet extended release 24 hr See Rx Instructions .ROUTE .COMPLEX Qty: 90 1RF Dose Instruction: TAKE 1 TABLET BY MOUTH EVERY DAY Rx Instructions: TAKE 1 TABLET BY MOUTH EVERY DAY nortriptyline 10 mg capsule See Rx Instructions .ROUTE .COMPLEX Qty: 30 2RF Dose Instruction: take 1 capsule BY MOUTH EVERY DAY Rx Instructions: take 1 capsule BY MOUTH EVERY DAY cyanocobalamin (vitamin B-12) 1,000 mcg/mL solution 1,000 mcg IM .monthly Qty: 10 3RF citalopram 40 mg tablet See Rx Instructions .ROUTE .COMPLEX Qty: 90 0RF Dose Instruction: TAKE 1 TABLET BY MOUTH EVERY DAY Rx Instructions: TAKE 1 TABLET BY MOUTH EVERY DAY rosuvastatin 20 mg tablet See Rx Instructions .ROUTE .COMPLEX Qty: 90 1RF Dose Instruction: TAKE 1 TABLET BY MOUTH EVERY DAY Rx Instructions: TAKE 1 TABLET BY MOUTH EVERY DAY amlodipine 10 mg tablet See Rx Instructions .ROUTE .COMPLEX Qty: 90 1RF Dose Instruction: TAKE 1 TABLET BY MOUTH EVERY DAY Rx Instructions: TAKE 1 TABLET BY MOUTH EVERY DAY clopidogrel 75 mg tablet 75 mg PO DAILY Discharge Orders: Discharge ED (Routine); Ordered 05/05/24 Ordered By: Lisandra Garibay Referrals: Db Yap, [Primary Care Provider] - Discharge Diet: Usual diet Discharge Activity: Increase activity as tolerated Patient Instructions: Fall Prevention for Older Adults (ED), Opioid Safety, Pain Management Activity Restrictions/Additional Instructions: Thank you for choosing [facility] for your healthcare needs today. Please realize this is an emergency room and that we are providing you with a medical screening exam and this may not be complete and all inclusive of all the testing and or work up that you may need to determine your ailment or severity of your illness. You have been screened and evaluated and felt safe for discharge. Health conditions do change or evolve sometimes and as such it is important that you follow up with your Primary Doctor to be re checked, 3-5 days is a general good time frame for follow up. You are always welcome to return to the ED for re assessment if your symptoms are worsening or you have new concerns Coding Level of Care Code ED Fairground Operator for Bennett Arroyo
[2024-05-05 21:51] VITALS: BP 162/89; PULSE 62; RESP 18; O2SAT 95
== END 2024-05-05 21:55 | disposition home or self-care (01) ==
PROVIDERS: Emergency Provider Emergency Medicine; PCP Internal Medicine
DX: S51.012A Laceration without foreign body of left elbow, initial encounter (principal); S09.90XA Unspecified injury of head, initial encounter; W19.XXXA Unspecified fall, initial encounter; Z79.02 Long term (current) use of antithrombotics/antiplatelets; I10 Essential (primary) hypertension
CPT/HCPCS: 70450; 99284

== ENCOUNTER 2025-01-07 01:11 | Emergency (ER) | payer MEDICARE, MEDICAID, SELFPAY ==
--- OUTSIDE RECORDS SUMMARY | 2025-01-07 01:17 | XMS_ITS | Encounter Summary ---
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
--- OUTSIDE RECORDS SUMMARY | 2025-01-07 01:17 | XMS_ITS | Encounter Summary ---
Author Organization [facility] Address [address] [place] [address] Care Team Providers Care Cutter Grinder Name Role Phone Abel Hendricks MD Primary Care Provider Encounter Details Date Type Department Care Team (Latest Contact Info) Description 09/06/1999 Outpatient Historical [facility] [address] [place] [phone] Abel Hendricks MD [address] [place] [address] Pure hypercholesterolem (Primary Dx); Syncope and collapse Social History Tobacco Use Types Packs/Day Years Used Date Smoking Tobacco: Never Assessed Comments Unknown Sex and Gender Information Value Date Recorded Sex Assigned at Not on file 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
--- OUTSIDE RECORDS SUMMARY | 2025-01-07 01:17 | XMS_ITS | Encounter Summary ---
Author Organization [employer] [facility] Address [address] [facility] [place] [address] Care Team Providers Care Folder And Notcher Name Role Phone Abel Hendricks MD Primary Care Provider Encounter Details Date Type Department Care Team (Latest Contact Info) Description 08/12/2002 Outpatient [facility] [address] [place] [address] Abel Hendricks MD [address] [place] [address] SCREENING MAMM-MAILG NEOPL-OTHER (Primary Dx) Social History Tobacco Use Types Packs/Day Years Used Date Smoking Tobacco: Never Assessed Comments Unknown Sex and Gender Information Value Date Recorded Sex Assigned at Not on file 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
--- OUTSIDE RECORDS SUMMARY | 2025-01-07 01:17 | XMS_ITS | Encounter Summary ---
Author Organization [facility] Address [address] [place] [address] Care Team Providers Care Sanding Machine Tender Name Role Phone Abel Hendricks MD Primary Care Provider Encounter Details Date Type Department Care Team (Latest Contact Info) Description 08/06/1999 Outpatient Historical [facility] [address] [place] [phone] Abel Hendricks MD [address] [place] [address] Pure hypercholesterolem (Primary Dx); Syncope and collapse; Gynecologic examination; Unspecified essential hypertension Social History Tobacco Use Types Packs/Day Years Used Date Smoking Tobacco: Never Assessed Comments Unknown Sex and Gender Information Value Date Recorded Sex Assigned at Not on file 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
--- OUTSIDE RECORDS SUMMARY | 2025-01-07 01:17 | XMS_ITS | Encounter Summary ---
Author Organization [facility] Address [address] [place] [address] Care Team Providers Care Cattle Broker Name Role Phone Abel Hendricks MD Primary Care Provider Encounter Details Date Type Department Care Team (Late st Contact Info) Description 07/01/2001 Outpatient Historical [facility] [address] [address] [place] [address] Melvi Abdul MD NO ADDRESS ON FILE SCREENING MAMM-MAILG NEOPL-OTHER (Primary Dx) Social History Tobacco Use Types Packs/Day Years Used Date Smoking Tobacco: Never Assessed Comments Unknown Sex and Gender Information Value Date Recorded Sex Assigned at Not on file 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
--- OUTSIDE RECORDS SUMMARY | 2025-01-07 01:17 | XMS_ITS | Encounter Summary ---
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
--- OUTSIDE RECORDS SUMMARY | 2025-01-07 01:17 | XMS_ITS | Encounter Summary ---
Author Organization [facility] Address [address] [place] [address] Care Team Providers Care Finish Off Operator Name Role Phone Abel Hendricks MD Primary Care Provider Encounter Details Date Type Department Care Team (Latest Contact Info) Description 09/30/1999 Outpatient Historical [facility] [address] [place] [phone] Abel Hendricks MD [address] [place] [address] Syncope and collapse (Primary Dx); Unspecified essential hypertension Social History Tobacco Use Types Packs/Day Years Used Date Smoking Tobacco: Never Assessed Comments Unknown Sex and Gender Information Value Date Recorded Sex Assigned at Not on file Legal 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
--- OUTSIDE RECORDS SUMMARY | 2025-01-07 01:17 | XMS_ITS | Encounter Summary ---
Author Organization [email or web address] [facility] Address [address] [place] [address] Care Team Providers Care Decay Control Operator Name Role Phone Abel Hendricks MD Primary Care Provider Encounter Details Date Type Department Care Team (Latest Contact Info) Description 04/16/2000 Outpatient Historical [facility] Kenroy Bautista MD NO ADDRESS ON FILE Other specified aftercare following surgery (Primary Dx) Social History Tobacco Use Types Packs/Day Years Used Date Smoking Tobacco: Never Assessed Comments Unknown Sex and Gender Information Value Date Recorded Sex Assigned at Not on file Legal Sex Female 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
--- OUTSIDE RECORDS SUMMARY | 2025-01-07 01:17 | XMS_ITS | Encounter Summary ---
Author Organization [facility] Address [address] [place] [address] Care Team Providers Care Frog Farmer Name Role Phone Abel Hendricks MD Primary Care Provider Encounter Details Date Type Department Care Team (Latest Contact Info) Description 12/20/1999 Outpatient Historical [facility] [address] [place] [phone] Abel Hendricks MD [address] [place] [address] Closed fracture of unspecified part of fibula (Primary Dx) Social History Tobacco Use Types Packs/Day Years Used Date Smoking Tobacco: Never Assessed Comments Unknown Sex and Gender Information Value Date Recorded Sex Assigned at Not on file 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
--- OUTSIDE RECORDS SUMMARY | 2025-01-07 01:17 | XMS_ITS | Encounter Summary ---
Author Organization [facility] Address [address] [place] [address] Care Team Providers Care Commodities Clerk Name Role Phone Abel Hendricks MD Primary Care Provider [phone] Encounter Details Date Type Department Care Team (Latest Contact Info) Description 10/17/1999 Outpatient Historical [facility] [address] [place] [phone] Abel Hendricks MD [address] [place] [address] Obesity, unspecified (Primary Dx); Dizziness and giddiness Social History Tobacco Use Types Packs/Day Years Used Date Smoking Tobacco: Never Assessed Comments Unknown Sex and Gender Information Value Date Recorded Sex Assigned at Not on file Legal Sex Female 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
--- OUTSIDE RECORDS SUMMARY | 2025-01-07 01:17 | XMS_ITS | Clinical Summary ---
Author Organization [facility] Address [address] 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 Gender Identity Not on file Sexual Orientation Not on file Plan of Treatment Health Maintenance Due Date Last Done Comments PNEUMOCOCCAL VACCINE 50+ YEARS (1 of 1 - PCV) 07/26/18 94 ZOSTER VACCINE (1 of 2) 1993 DTAP/TDAP/TD VACCINES (1 - Tdap) 01/15/2006 01/15/20 06 OSTEOPOROSIS SCREENING 2008 RSV VACCINE (60+ or ) (1 - 1-dose 75+ series) 2018 INFLUENZA VACCINE (#1) [address] [place] [address] [employer] G[employer] [id number] HMO Care Teams Experimental Display Builder Relationship Specialty Start Date End Date Abel Hendricks MD [address] [place] [address] PCP - General 08/12/02
--- OUTSIDE RECORDS SUMMARY | 2025-01-07 01:17 | XMS_ITS | Encounter Summary ---
Author Organization [facility] Address [address] [place] [address] Care Team Providers Care Director Semiconductor Name Role Phone Abel Hendricks MD Primary Care Provider Encounter Details Date Type Department Care Team (Late st Contact Info) Description 07/01/[address] 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
--- OUTSIDE RECORDS SUMMARY | 2025-01-07 01:17 | XMS_ITS | Encounter Summary ---
Author Organization [facility] Address [address] [place] [address] Care Team Providers Care Field Installation Technician Name Role Phone Abel Hendricks MD Primary Care Provider [phone] Encounter Details Date Type Department Care Team (Latest Contact Info) Description 11/22/1999 Outpatient Historical [facility] [address] [place] [address] Abel Hendricks MD [address] [place] [address] Benign hypertension (Primary Dx); Obesity, unspecified; Pure hypercholesterolem Social History Tobacco Use Types Packs/Day Years Used Date Smoking Tobacco: Never Assessed Comments Unknown Sex and Gender Information Value Date Recorded Sex Assigned at Not on file 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
--- OUTSIDE RECORDS SUMMARY | 2025-01-07 01:17 | XMS_ITS | Encounter Summary ---
Author Organization 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
--- OUTSIDE RECORDS SUMMARY | 2025-01-07 01:17 | XMS_ITS | Encounter Summary ---
Author Organization [facility] Address [address] [place] [address] Care Team Providers Care Front Office Clerk Name Role Phone Abel Hendricks MD Primary Care Provider Encounter Details Date Type Department Care Team (Latest Contact Info) Description 01/02/2000 Outpatient Historical [facility] [address] [place] [address] Abel Hendricks MD [address] [place] [address] Closed fracture of unspecified part of fibula (Primary Dx); Pain in limb Social History Tobacco Use Types Packs/Day Years Used Date Smoking Tobacco: Never Assessed Comments Unknown Sex and Gender Information Value Date Recorded Sex Assigned at Not on file Legal Sex Female 4:14 AM CHIEF OF PRODUCTION Gender Identity Not on file Sexual Orientation Not on file documented as of this encounter Plan of Treatment Not on file documented as of this encounter Visit Diagnoses Diagnosis Closed fracture of unspecified part of fibula- Primary Pain in limb Pain in soft tissues of limb documented in this encounter Care Teams Front Office Clerk Relationship Specialty Start Date End Date Abel Hendricks MD [address] [place] [address] PCP - General 08/12/02 documented as of this encounter
--- OUTSIDE RECORDS SUMMARY | 2025-01-07 01:17 | XMS_ITS | Encounter Summary ---
Author Organization [facility] Address [address] [place] [address] Care Team Providers Care Broom Bundler Name Role Phone Abel Hendricks MD Primary Care Provider Encounter Details Date Type Department Care Team (Latest Contact Info) Description 07/01/2001 Outpatient Historical [facility] [address] [place] [address] Abel Hendricks MD [address] [place] [address] Gynecologic examination (Primary Dx); SCREENING MAL NEOP-CERVIX Social History Tobacco Use Types Packs/Day Years Used Date Smoking Tobacco: Never Assessed Comments Unknown Sex and Gender Information Value Date Recorded Sex Assigned at Not on file Legal Sex Female 4:14 AM BASE REMOVER Gender Identity Not on file Sexual Orientation Not on file documented as of this encounter Plan of Treatment Not on file documented as of this encounter Visit Diagnoses Diagnosis Gynecologic examination- Primary Gynecological examination Screening for malignant neoplasm of the cervix documented in this encounter Care Teams Broom Bundler Relationship Specialty Start Date End Date Abel Hendricks MD [address] [place] [address] PCP - General 08/12/02 documented as of this encounter
--- OUTSIDE RECORDS SUMMARY | 2025-01-07 01:17 | XMS_ITS | Encounter Summary ---
Author Organization [facility] Address [address] [place] [address] Care Team Providers Care Executive Cyber Leader Name Role Phone Abel Hendricks MD Primary Care Provider Encounter Details Date Type Department Care Team (Late st Contact Info) Description 08/30/1999 Outpatient Historical [facility] [address] [place] [phone] Melvi Abdul MD NO ADDRESS ON FILE Family history of malignant neoplasm of breast (Primary Dx) Social History Tobacco Use Types Packs/Day Years Used Date Smoking Tobacco: Never Assessed Comments Unknown Sex and Gender Information Value Date Recorded Sex Assigned at Not on file Legal Sex Female 4:14 AM SENSITIZER Gender Identity Not on file Sexual Orientation Not on file documented as of this encounter Plan of Treatment Not on file documented as of this encounter Visit Diagnoses Diagnosis Family history of malignant neoplasm of breast- Primary documented in this encounter Care Teams Executive Cyber Leader Relationship Specialty Start Date End Date Abel Hendricks MD [address] [place] [address] PCP - General 08/12/02 documented as of this encounter
--- OUTSIDE RECORDS SUMMARY | 2025-01-07 01:17 | XMS_ITS | Encounter Summary ---
Author Organization [facility] Address [address] [place] [address] Care Team Providers Care Sales Office Manager Name Role Phone Abel Hendricks MD Primary Care Provider Encounter Details Date Type Department Care Team (Latest Contact Info) Description 08/12/2002 Outpatient Historical [facility] [address] [place] [phone] Abel Hendricks MD [address] [place] [address] Routine medical exam (Primary Dx); Pure hypercholesterolem; Benign hypertension; ABNORMAL WEIGHT GAIN Social History Tobacco Use Types Packs/Day Years Used Date Smoking Tobacco: Never Assessed Comments Unknown Sex and Gender Information Value Date Recorded Sex Assigned at Not on file Legal Sex Female 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
--- OUTSIDE RECORDS SUMMARY | 2025-01-07 01:17 | XMS_ITS | Encounter Summary ---
Author Organization [facility] Address [address] [place] [address] Care Team Providers Care Store Gift Wrap Associate Name Role Phone Abel Hendricks MD Primary Care Provider Encounter Details Date Type Department Care Team (Latest Contact Info) Description 09/14/2000 Outpatient Historical [facility] [address] [place] [phone] Abel Hendricks MD [address] [place] [address] Depressive disorder, not elsewhere classified (Primary Dx); Swelling of limb; Pain in limb Social History Tobacco Use Types Packs/Day Years Used Date Smoking Tobacco: Never Assessed Comments Unknown Sex and Gender Information Value Date Recorded Sex Assigned at Not on file Legal Sex Female 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
--- OUTSIDE RECORDS SUMMARY | 2025-01-07 01:17 | XMS_ITS | Encounter Summary ---
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
--- OUTSIDE RECORDS SUMMARY | 2025-01-07 01:18 | XMS_ITS | Encounter Summary ---
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) Social History Tobacco Use Types Packs/Day Years Used Date Smoking Tobacco: Never Assessed Comments Unknown Sex and Gender Information Value Date Recorded Sex Assigned at Not on file Legal Sex Female 4:14 AM INSTRUMENT PERSON Gender Identity Not on file Sexual Orientation Not on file documented as of this encounter Plan of Treatment Not on file documented as of this encounter Visit Diagnoses Diagnosis Benign hypertensive heart disease without heart failure- Primary documented in this encounter Care Teams Recycle Coordinator Relationship Specialty Start Date End Date Abel Hendricks MD [address] [place] [address] PCP - General 08/12/02 documented as of this encounter
--- OUTSIDE RECORDS SUMMARY | 2025-01-07 01:18 | XMS_ITS | Patient Health Record ---
Author Organization [facility] Address [address] [place] [address] Care Team Providers Care Human Insights Lead Ads Marketing Name Role Phone Gatito Biggs Primary Care Provider [phone] Allergies No Known Allergies Reason For Referral No Information Medications Medication SIG (Take, Route, Frequency, Duration) Notes Start Date End Date Status amLODIPine Besylate 10 MG Tablet 1 tablet Orally Once a day; Duration: 30 days Active Tylenol PM Extra Strength 500-25 MG Tablet 1 tablet at bedtime as needed Orally Once a day Unknown Citalopram Hydrobromide 20 MG Tablet 1 tablet Orally Once a day; Duration: 90 days Active Nortriptyline HCl 10 mg Capsule TAKE 1 CAPSULE ORALLY ONCE A DAY; Duration: 30 Active Clopidogrel Bisulfate 75 MG Tablet 1 tablet Orally Once a day; Duration: 90 days Active Metoprolol Succinate ER 50 MG Tablet Extended Release 24 Hour TAKE 1 TABLET BY MOUTH EVERY DAY; Duration: 90 Active Vitamin B12 Active Lisinopril 20 MG Tablet TAKE 1 TABLET BY MOUTH TWICE DAILY Orally twice a day; Duration: 90 days pt would like to have all her medications be due for refills on the same day. Can you please adjust these so she will only have to come once a month? Active Rosuvastatin Calcium 10 mg Tablet TAKE 1 TABLET BY MOUTH EVERY DAY; Duration: 30 Active Immunizations Vaccine Route Administration Date Status Comme nts COVID-19 Vaccine (Moderna) Dose #1 IM Intramuscular 01/17/2021 Administered COVID-19 Vaccine (Moderna) Dose #2 Unknown 01/17/2021 Administered COVID-19 Vaccine (Moderna) Dose #3 Unknown 05/29/2021 Administered Influenza, seasonal, injectable, preservative free, 3 yrs and above Unknown 03/16/2019 Administered Pneumococcal conjugate PCV 13 Unknown 07/04/2015 Administered Pneumococcal polysaccharide PPV23 Unknown 07/31/2004 Administered zzTetanus toxoid, absorbed Unknown 07/06/2013 Administe red Social History Tobacco Use: Social History Observation Description Date Details (start date - stop date) Former Smoker NA - NA Social History Drugs/Alcohol: Social Info Question Answer Notes Alcohol Screen (Audit-C) Did you have a drink containing alcohol in the past year? No Points 0 Interpretation Negative Drugs Have you used drugs other than those for medical reasons in the past 12 months? No Household: Social Info Question Answer Notes Household Marital status: Level of education: finished high school vocatio nal training Tobacco Use: Social Info Question Answer Notes xTobacco Use/Smoking Are you a former smoker How long has it been since you last smoked? > 10 years Additional Details Category Social Info Options Details Drugs/Alcohol: Do you smoke marijuana? De nies Do you drink alcohol? No zzMigrated Social History Migrated Social History Occupation: Volunteer at [employer] Problems Problem Type SNOMED Code ICD Code Onset Dates Problem Status W/U Status Risk Notes Problem hypercholesterolemia (disorder) (92386987) Hypercholesteremia (E78.00) Active confirmed Problem Memory loss (05997133) Memory loss (R41.3) Active confirmed Problem Moderate recurrent major depression (11332234) Moderate episode of recurrent major depressive disorder (F33.1) Active confirmed Problem Chronic kidney disease stage 3 (disorder) (349500157) Stage 3 chronic kidney disease (N18.3) Active confirmed Problem Lipids abnormal (231791925) Lipids abnormal (E78.89) Active confirmed Problem Obstructive sleep apnea syndrome (17606759) Obstructive sleep apnea syndrome (G47.33) Active confirmed Problem Hypercholesterolemia (72593128) Hypercholesterolemia (E78.00) Active confirmed Problem Iron deficiency anemia secondary to inadequate dietary iron intake (191648910) Iron deficiency anemia secondary to inadequate dietary iron intake (D50.8) Active confirmed Problem Generalized anxiety disorder (38288652) Generalized anxiety disorder (F41.1) Active confirmed Problem Irritable bowel syndrome with diarrhea (974890391) Irritable bowel syndrome with diarrhea (K58.0) Active confirmed Problem Lumbosacral spondylosis without myelopathy (63218981) Other spondylosis, lumbar region (M47.896) 2017 Active confirmed [id number] [id number]- Problem Essential hypertension (84396472) Essential hypertension (I10) Active confirmed Problem COPD - Chronic obstructive pulmonary disease (84925986) Chronic obstructive pulmonary disease, unspecified COPD type (J44.9) Active confirmed Problem Transient ischemic attack (959801938) TIA (transient ischemic attack) (G45.9) Active confirmed Problem Osteoarthritis of knee (036620495) Primary osteoarthritis of both knees (M17.0) Active confirmed Problem History of cerebrovascular accident without residual deficits (284014923) History of CVA (cerebrovascular accident) (Z86.73) Active confirmed Problem Atherosclerotic hear t disease of [place] coronary artery without angina pectoris (379836112105223) Coronary artery disease, angina presence unspecified, unspecified vessel or lesion type, unspecified whether [place] or transplanted heart (I25.10) Active confirmed Problem Osteoarthritis of multiple joints (791105767) Osteoarthritis of multiple joints, unspecified osteoarthritis type (M15.9) Active confirmed Problem Lumbar spondylosis with myelopathy (disorder) (76120326) 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) Active confirmed Problem Porcelain gallbladde r (767471422) 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 confirmed Problem Memory loss (02244943) Memory loss (780.93) 2014 Inactive confirmed [id number]- Problem Dysphagia (43875944) Dysphagia, unspecified (787.20) 2017 Inactive confirmed [id number]- Problem Vertigo (061024566) Vertigo (780.4) 01/28 Inactive confirmed [id number] [id number]- Problem Rash (630422654) Rash (782.1) 2015 Inactive confirmed [id number] [id number]- Problem Hyperlipidemia (36701447) Hyperlipidemia (272.4) 2018 Inactive confirmed [id number] [id number]- Problem Urinary tract infection (03851580) UTI (599.0) 2017 Inactive confirmed [id number] [id number]- Problem Impaired fasting glycaemia (544950853) Elevated fasting glucose (790.21) 2018 Inactive confirmed [id number]-98 [id number]- Problem Elevated levels of transaminase & lactic acid dehydrogenase (347358054) Elevated SGOT (AST) (790.4) 2018 Inactive confirmed [id number] [id number]- Problem Influenza immunization (22920158) Influenza immunization (V04.81) 2018 Inactive confirmed [id number]-98 [id number]- Problem Thyroid function tests abnormal (433033598) Abnormal thyroid findings (794.5) 2018 Inactive confirmed [id number] [id number]- Problem Foot swelling (113195344) Foot swelling (729.81) 2016 Inactive confirmed [id number]-98 [id number]- Problem Urinary incontinence (845258626) Incontinence of urine, other (788.39) 2017 Inactive confirmed Jl-98 [id number]- Problem Hip pain (32755193) Hip pain (719.45) 2018 Inactive confirmed [id number]-98 [id number]- Problem Impacted cerumen (61410658) External cerumen impaction (380.4) 2015 Inactive confirmed [id number]-98 [id number]- Problem Abnormal findings on diagnostic imaging of breast (880351604) Other (abnormal) findings on radiological examination of breast (793.89) 2014 Inactive confirmed Jl-98 [id number]- Problem Pedal edema (066423158) Pedal edema (782.3) 2018 Inactive confirmed Jl-98 [id number]- Problem Mild major depression, single episode (67449981) Current mild episode of major depressive disorder, unspecified whether recurrent (F32.0) Inactive confirmed Problem Screening mammograph y (22046102) Screening mammogram - other (V76.12) 2017 Inactive confirmed [id number]-98 [id number]- Problem Leukopenia (72913727) Decreased white blood cell count, unspecified (D72.819) 2018 Problem resolved confirmed Jl-98 [id number]- Problem Diverticulitis of colon (805324753) Diverticulitis of large intestine without perforation or abscess without bleeding (K57.32) 2018 Problem resolved confirmed [id number]-98 [id number]- Problem Cholelithiasis without obstruction (32963028) Calculus of gallbladder without cholecystitis without obstruction (K80.20) 2018 Problem resolved confirmed Jl-98 [id number]- Problem Age-related osteoporosis (947362379) Age-related osteoporosis without current pathological fracture (M81.0) 2015 Problem resolved confirmed Jl-98 5911- Plan Of Treatment No Information Insurance Providers Payer Name Payer Address Payer Phone Subscriber Number Group Number Insured Name Patient Relationship to Insured Coverage Start Date Coverage End Date [employer] [place] [address] [place] [id number] [phone] [id number] Emma Rodriguez Self - patient is the insured [place] Medicaid [address] [place] [address] [id number] Emma Rodriguez Self - patient is the insured Medications Administered Medication Instructions Date of Administration Dosage Notes Depo-Medrol/Methylprednisolo ne per 80mg 08/18/2019 80 ug Medical (General) History Medical History History ICD Code Other hyperlipidemia Generalized anxiety disorder Current mild episode of hector r depressive disorder, unspecified whether recurrent Osteoarthritis of multiple joints, unspe cified osteoarthritis type Irritable bowel syndrome with diarrhea Essential hypertension Chronic obstructive pulmonary disease, u nspecified COPD type Coronary artery disease, ang mehrdad presence unspecified, unspecified vessel or lesion type, unspecified whether [place] or transplanted heart Lumbar and sacral spondylarthritis Porcelain gallbladder Primary osteoarthritis of both knees History of CVA (cerebrovascular accident ) TIA (transient ischemic attack) renal artery stenosis Diverticulitis of colon (resolved 2118) Age-related osteoporosis wit hout current pathological fracture (resolved 02/11/2018) Surgical History Surgery Date(Month/Year) Cataract Removal: bilateral Carpal Tunnel Release left knee replacement 03/2020 Hospitalization History Reason Date(Month/Year) CVA 2010
--- OUTSIDE RECORDS SUMMARY | 2025-01-07 01:18 | XMS_ITS | Encounter Summary ---
Author Organization [facility] Address [address] [place] [address] Care Team Providers Care General Assembler Name Role Phone Abel Hendricks MD Primary Care Provider Encounter Details Date Type Department Care Team (Latest Contact Info) Description 12/24/1998 Outpatient Historical [facility] [address] [place] [phone] Cm Terrell MD NO ADDRESS ON FILE Tachycardia, unspecified (Primary Dx); Depressive disorder, not elsewhere classified Social History Tobacco Use Types Packs/Day Years Used Date Smoking Tobacco: Never Assessed Comments Unknown Sex and Gender Information Value Date Recorded Sex Assigned at Not on file Legal Sex Female 4: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
--- OUTSIDE RECORDS SUMMARY | 2025-01-07 01:18 | XMS_ITS | Encounter Summary ---
Author Organization [facility] Address [address] [facility] [place] [address] Care Team Providers Care Ship/Rec/Doc Control Name Role Phone Abel Hendricks MD Primary Care Provider Encounter Details Date Type Department Care Team (Latest Contact Info) Description 03/20/1998 Outpatient [facility] [address] [place] [phone] Cm Terrell MD NO ADDRESS ON FILE Gynecologic examination (Primary Dx); Benign hypertensive heart disease without heart failure Social History Tobacco Use Types Packs/Day Years Used Date Smoking Tobacco: Never Assessed Comments Unknown Sex and Gender Information Value Date Recorded Sex Assigned at Not on file 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
--- OUTSIDE RECORDS SUMMARY | 2025-01-07 01:18 | XMS_ITS | Encounter Summary ---
Author Organization [facility] Address [address] [place] [address] Care Team Providers Care Making Machine Catcher Name Role Phone Abel Hendricks MD Primary Care Provider Encounter Details Date Type Department Care Team (Late st Contact Info) Description 03/20/1998 Outpatient Historical [facility] [place] [address] [place] [address] Melvi Abdul MD NO ADDRESS ON FILE Other screening mammogram (Primary Dx) Social History Tobacco Use Types Packs/Day Years Used Date Smoking Tobacco: Never Assessed Comments Unknown Sex and Gender Information Value Date Recorded Sex Assigned at Not on file 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
--- OUTSIDE RECORDS SUMMARY | 2025-01-07 01:18 | XMS_ITS | Encounter Summary ---
Author Organization [facility] Address [address] [facility] [place] [address] Care Team Providers Care Chairlift Operator Name Role Phone Abel Hendricks MD Primary Care Provider [phone] Encounter Details Date Type Department Care Team (Latest Contact Info) Description 11/08/1997 Outpatient Historical [facility] [address] [place] [phone] Cm Terrell MD NO ADDRESS ON FILE Benign hypertensive heart disease without heart failure (Primary Dx) Social History Tobacco Use Types Packs/Day Years Used Date Smoking Tobacco: Never Assessed Comments Unknown Sex and Gender Information Value Date Recorded Sex Assigned at Not on file 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
--- OUTSIDE RECORDS SUMMARY | 2025-01-07 01:18 | XMS_ITS | Encounter Summary ---
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
--- OUTSIDE RECORDS SUMMARY | 2025-01-07 01:18 | XMS_ITS | Encounter Summary ---
Author Organization [facility] Address [address] [facility] [place] [address] Care Team Providers Care Preventive Medicine Specialist Name Role Phone Abel Hendricks MD Primary Care Provider Encounter Details Date Type Department Care Team (Latest Contact Info) Description 03/17/2000 Outpatient Historical [facility] Kenroy Bautista MD NO ADDRESS ON FILE Carpal tunnel syndrome (Primary Dx) Social History Tobacco Use Types Packs/Day Years Used Date Smoking Tobacco: Never Assessed Comments Unknown Sex and Gender Information Value Date Recorded Sex Assigned at Not on file 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
[2025-01-07 01:20] VITALS: BP 230/119; PULSE 65; RESP 16; TEMP 36.6; O2SAT 94; BMI 32.3
--- NOTE | 2025-01-07 01:59 | CTR_ITS ---
PROCEDURE INFORMATION: Exam: CT Head Without Contrast Exam date and time: 01/07/2025 2:09 AM Age: 79 years old Clinical indication: Injury or trauma; Blunt trauma (contusions or hematomas); EMS arrival from custodial for fall with headstrike. ; Additional info: Fall hit head TECHNIQUE: Imaging protocol: Computed tomography of the head without contrast. Radiation optimization: All CT scans at this facility use at least one of these dose optimization techniques: automated exposure control; mA and/or kV adjustment per patient size (includes targeted exams where dose is matched to clinical indication); or iterative reconstruction. COMPARISON: CT head wo con* [id number] 05/05/2024 8:52 PM RADIATION DOSE METRICS: Total DLP (mGy-cm): 1047.38 FINDINGS: Brain: No acute infarction, hemorrhage, mass, or extra-axial fluid collection is identified. No midline shift. Chronic white matter microangiopathy and generalized atrophy. Small remote lacunar infarctions left basal ganglia and left thalamus. Cerebral ventricles: No hydrocephalus. Paranasal sinuses: Paranasal sinuses are grossly clear. Mastoid air cells: Mastoid air cells are grossly clear. Bones: Calvarium appears intact. Soft tissues: Unremarkable. CT/CT head wo con* [id number] IMPRESSION: No acute intracranial abnormality.
--- NOTE | 2025-01-07 01:59 | XRR_ITS ---
PROCEDURE INFORMATION: Exam: XR Right Humerus Exam date and time: 01/07/2025 2:00 AM Age: 79 years old Clinical indication: Injury or trauma; Blunt trauma (contusions or hematomas); Arm, upper; Right; EMS arrival for correction for fall. Landed on RT arm. C/O humeral pain with reduced rom. ; Additional info: Fall right arm pain TECHNIQUE: Imaging protocol: Radiologic exam of the right humerus. Views: 2 or more views. COMPARISON: CT cervical spin wo con* [id number] 12/02/2021 7:50 PM FINDINGS: Bones/joints: Transverse fracture through the right humeral surgical neck with impaction and probable mild valgus angulation of the distal fracture fragment. No other acute fracture or dislocation identified. Right shoulder and elbow joint spaces grossly aligned and maintained. Soft tissues: Normal. XR/[place] [id number] IMPRESSION: 1. Transverse fracture through the right humeral surgical neck with impaction and probable mild valgus angulation of the distal fracture fragment. 2. No other acute fracture or dislocation identified.
--- NOTE | 2025-01-07 01:59 | CTR_ITS ---
PROCEDURE INFORMATION: Exam: CT Cervical Spine Without Contrast Exam date and time: 01/07/2025 2:11 AM Age: 79 years old Clinical indication: Injury or trauma; Blunt trauma; EMS arrival from long term for fall with headstrike. ; Additional info: Fall hit head TECHNIQUE: Imaging protocol: Computed tomography of the cervical spine without contrast. Radiation optimization: All CT scans at this facility use at least one of these dose optimization techniques: automated exposure control; mA and/or kV adjustment per patient size (includes targeted exams where dose is matched to clinical indication); or iterative reconstruction. COMPARISON: CT cervical spin wo con* [id number] 12/02/2021 7:50 PM RADIATION DOSE METRICS: Total DLP (mGy-cm): 448.38 FINDINGS: Bones: No acute fracture of the cervical spine. No severe spinal canal stenosis. Multilevel degenerative change including anterior osteophytosis and dorsal spondylosis. Multilevel facet arthropathy bilaterally. Lungs: Lung apices are unremarkable. Soft tissues: Unremarkable. CT/CT cervical spin wo con* [id number] IMPRESSION: No acute trauma to the cervical spine.
[2025-01-07] MEDS: ondansetron 2 mg/ML SDV 2 mL 4 MG IVP (03:02)
[2025-01-07] MEDS: morphine 4 mg/mL SDV 1 mL IVP (03:03)
[2025-01-07] MEDS: labetalol 5 mg/mL SDV 20mL 20 MG IVP (03:06)
--- NOTE | 2025-01-07 03:21 | W.ED.FALL ---
HPI - Fall General: Chief Complaint: Fall Stated Complaint: Fall Time Seen by Provider: 01/07/25 01:53 History of Present Illness: 79-year-old female patient who resides in a long-term. She fell striking her head. She complained of head pain, neck pain, and significant right shoulder pain with any movement of her arm. She was not knocked unconscious. She does not appear to be on anticoagulants. Related Data Home Medications ?Medication ?Instructions ?Recorded ?Confirmed clopidogrel 75 mg tablet 75 mg PO DAILY 09/23/22 05/03/23 Previous Rx's ?Medication ?Instructions ?Recorded metoprolol succinate 50 mg See Rx Instructions .Route 11/12/22 tablet,extended release 24 hr .COMPLEX #90 tabs nortriptyline 10 mg capsule See Rx Instructions .Route 11/17/22 .COMPLEX #30 caps cyanocobalamin (vitamin B-12) 1,000 mcg IM .monthly #10 mL 12/31/22 1,000 mcg/mL injection solution alendronate 70 mg tablet See Rx Instructions .Route 03/09/23 .COMPLEX #12 tabs thiamine HCl (vitamin B1) 50 mg 100 mg (2 x 50 mg) PO DAILY #60 03/09/23 tablet tabs memantine 5 mg tablet 5 mg PO BID #90 tabs 03/10/23 citalopram 40 mg tablet See Rx Instructions .Route 03/23/23 .COMPLEX #90 tabs rosuvastatin 20 mg tablet See Rx Instructions .Route 04/14/23 .COMPLEX #90 tabs amlodipine 10 mg tablet See Rx Instructions .Route 04/28/23 .COMPLEX #90 tabs hydrocodone 5 mg-acetaminophen 325 1 tab PO Q8H PRN pain #7 tabs 01/07/25 mg tablet Allergies Allergy/AdvReac Type Severity Reaction Status Date / Time No Known Allergies Allergy Verified 03/27/23 15:29 PFSH ED PFSH: Medical History Depression Dementia Fracture Risk Assessment Score (FRAX) indicating greater than 20% risk for major osteoporosis-related fracture Osteopenia Osteopenia after menopause Mitral valve annular calcification Dyslipidemia Hypertension Cholelithiases Hiatal hernia History of kidney stones Diverticulosis History of stroke basal ganglia lacunar infarcts History of heart attack anteroapical PA Primary osteoarthritis of right knee Surgical History History of cataract surgery History of total knee arthroplasty left History of carpal tunnel release Family History Mother CAD (coronary artery disease) Father CAD (coronary artery disease) Sister Dementia Brother CAD (coronary artery disease) Social History Smoking and tobacco/nicotine status: current every day tobacco/nicotine user cigarettes [ Other cigarette details: started age 74, 2 packs per week] Alcohol intake: current Alcohol intake frequency: few times a week Substance/Drug Use: never Lives independently: Yes Household members: none Physical Exam Const: COMMON NORMALS: no acute distress GENERAL APPEARANCE: cooperative and frail appearing ORIENTATION/CONSCIOUSNESS: Yes awake and Yes oriented to person HENMT: COMMON NORMALS: normocephalic and atraumatic HEAD & SCALP: normocephalic and atraumatic FACE & SINUS: normal facial exam and face symmetric Eye: COMMON NORMALS: Equal, round and reactive pupils present and EOMs intact bilaterally PUPIL: Yes Equal, round and reactive pupils present Neck/C-Spine: GENERAL: Yes trachea midline CERVICAL SPINE: No Cervical spine tenderness Chest: CHEST: Yes Symmetrical chest wall rise Resp: COMMON NORMALS: normal respiratory effort and clear to auscultation bilaterally AUSCULTATION: clear to auscultation bilaterally Cardio: COMMON NORMALS: regular rate and regular rhythm RATE: regular rate RHYTHM: regular rhythm Extremity: NARRATIVE EXTREMITY EXAM: Exam the right upper extremity is without significant deformity. There is tenderness over the shoulder. There is significant tenderness with any upper extremity movement located at the shoulder. Pulses and sensation are intact distally. Neuro: SENSORIUM/ORIENTATION: Yes oriented to person Course Vital Signs: Vital signs: Vital Signs Temperature 97.8 F 01/07/25 01:20 Pulse Rate 73 01/07/25 03:53 Respiratory Rate 16 01/07/25 03:53 Blood Pressure 155/62 01/07/25 03:53 Pulse Oximetry 90 01/07/25 03:53 Oxygen Delivery Me thod Room Air 01/07/25 03:53 MDM - Fall Medical Decision Making Patient has a displaced proximal humerus fracture.She is placed in a shoulder immobilizer. Humeral head is in joint. Follow-up with orthopedics. Pain control. Ice. Lab Data Radiology Impressions Cervical Spine CT 01/07/25 01:59 IMPRESSION: No acute trauma to the cervical spine. Head CT 01/07/25 01:59 IMPRESSION: No acute intracranial abnormality. Humerus X-Ray 01/07/25 01:59 IMPRESSION: 1. Transverse fracture through the right humeral surgical neck with impaction and probable mild valgus angulation of the distal fracture fragment. 2. No other acute fracture or dislocation identified. All radiology interpretation(s) finalized by discharge Discharge Plan Discharge Patient Disposition: Home Clinical Impression: Closed fracture of proximal end of right humerus Condition: Stable Prescriptions: New hydrocodone-acetaminophen 5-325 mg tablet 1 tab PO Q8H PRN (Reason: pain) Qty: 7 0RF No Action memantine 5 mg tablet 5 mg PO BID Qty: 90 2RF Rx Instructions: 1 in am and 2 at night for one week then 2 in am and 2 in pm there after alendronate 70 mg tablet See Rx Instructions .ROUTE .COMPLEX Qty: 12 0RF Dose Instruction: TAKE 1 TABLET BY MOUTH every week Rx Instructions: TAKE 1 TABLET BY MOUTH every week thiamine HCl (vitamin B1) 50 mg tablet 100 mg PO DAILY Qty: 60 2RF metoprolol succinate 50 mg tablet extended release 24 hr See Rx Instructions .ROUTE .COMPLEX Qty: 90 1RF Dose Instruction: TAKE 1 TABLET BY MOUTH EVERY DAY Rx Instructions: TAKE 1 TABLET BY MOUTH EVERY DAY nortriptyline 10 mg capsule See Rx Instructions .ROUTE .COMPLEX Qty: 30 2RF Dose Instruction: take 1 capsule BY MOUTH EVERY DAY Rx Instructions: take 1 capsule BY MOUTH EVERY DAY cyanocobalamin (vitamin B-12) 1,000 mcg/mL solution 1,000 mcg IM .monthly Qty: 10 3RF citalopram 40 mg tablet See Rx Instructions .ROUTE .COMPLEX Qty: 90 0RF Dose Instruction: TAKE 1 TABLET BY MOUTH EVERY DAY Rx Instructions: TAKE 1 TABLET BY MOUTH EVERY DAY rosuvastatin 20 mg tablet See Rx Instructions .ROUTE .COMPLEX Qty: 90 1RF Dose Instruction: TAKE 1 TABLET BY MOUTH EVERY DAY Rx Instructions: TAKE 1 TABLET BY MOUTH EVERY DAY amlodipine 10 mg tablet See Rx Instructions .ROUTE .COMPLEX Qty: 90 1RF Dose Instruction: TAKE 1 TABLET BY MOUTH EVERY DAY Rx Instructions: TAKE 1 TABLET BY MOUTH EVERY DAY clopidogrel 75 mg tablet 75 mg PO DAILY Discharge Orders: Discharge ED (Routine); Ordered 01/07/25 Ordered By: Eduar Shay Referrals: Brett Ruiz DO [Physician, Orthopedics] - 4-7 days Db Yap DO [Primary Care Provider, Internal Medicine] - 4-7 days Patient Instructions: Opioid Safety, Pain Management, Patient Portal & [place] Instructions Activity Restrictions/Additional Instructions: Call the orthopedic clinic at the number above on Thursday for a follow-up appointment this coming week. Stay in shoulder immobilizer until seen by orthopedics. Return for any problems. Check blood pressure twice daily, as you were quite hypertensive here. Medication adjustments may need to be made. Medication for pain as needed. Ice to the shoulder will help with pain and swelling as well. Print Language: Turkmen Coding Level of Care Code ED Precision Lens Grinder Apprentice for Bennett Arroyo
[2025-01-07 03:53] VITALS: BP 155/62; PULSE 73; RESP 16; O2SAT 90
[2025-01-07 04:42] VITALS: BP 137/106; PULSE 74; RESP 16; O2SAT 95
== END 2025-01-07 04:43 | disposition home or self-care (01) ==
PROVIDERS: Emergency Provider Emergency Medicine; PCP Internal Medicine
DX: S42.211A Unspecified displaced fracture of surgical neck of right humerus, initial encounter for closed fracture (principal); Z79.02 Long term (current) use of antithrombotics/antiplatelets; F17.210 Nicotine dependence, cigarettes, uncomplicated; E78.5 Hyperlipidemia, unspecified; I10 Essential (primary) hypertension; W19.XXXA Unspecified fall, initial encounter
CPT/HCPCS: 70450; 72125; 73060; 96374; 96375; 99285; J2270; J2405; J3490; J9999

== ENCOUNTER 2025-01-07 10:06 | Emergency (ER) | payer MEDICARE, MEDICAID, SELFPAY ==
[2025-01-07 10:08] VITALS: BP 148/79; PULSE 72; RESP 16; TEMP 36.3; O2SAT 93; BMI 32.2
--- OUTSIDE RECORDS SUMMARY | 2025-01-07 10:12 | XMS_ITS | Encounter Summary ---
Author Organization [facility] Address [address] [place] [address] Care Team Providers Care Shoe Stock Associate Name Role Phone Abel Hendricks MD Primary Care Provider Encounter Details Date Type Department Care Team (Late st Contact Info) Description 08/30/1999 Outpatient Historical [facility] [address] [place] [id number] Melvi Abdul MD NO ADDRESS ON FILE Family history of malignant neoplasm of breast (Primary Dx) Social History Tobacco Use Types Packs/Day Years Used Date Smoking Tobacco: Never Assessed Comments Unknown Sex and Gender Information Value Date Recorded Sex Assigned at Not on file Legal Sex Female 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
--- OUTSIDE RECORDS SUMMARY | 2025-01-07 10:12 | XMS_ITS | Encounter Summary ---
Author Organization [facility] Address [address] [place] [address] Care Team Providers Care Chief Knowledge Officer Name Role Phone Abel Hendricks MD Primary Care Provider Encounter Details Date Type Department Care Team (Latest Contact Info) Description 07/01/2001 Outpatient Historical [facility] [address] [place] [phone] Abel Hendricks MD [address] [place] [address] Gynecologic examination (Primary Dx); SCREENING MAL NEOP-CERVIX Social History Tobacco Use Types Packs/Day Years Used Date Smoking Tobacco: Never Assessed Comments Unknown Sex and Gender Information Value Date Recorded Sex Assigned at Not on file Legal Sex Female 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
--- OUTSIDE RECORDS SUMMARY | 2025-01-07 10:12 | XMS_ITS | Encounter Summary ---
Author Organization [facility] Address [address] [place] [address] Care Team Providers Care Internal Investigator Name Role Phone Abel Hendricks MD Primary Care Provider [phone] Encounter Details Date Type Department Care Team (Late st Contact Info) Description 07/01/2001 Outpatient Historical [facility] [address] [place] [address] Melvi Abdul MD NO ADDRESS ON FILE SCREENING MAMM-MAILG NEOPL-OTHER (Primary Dx) Social History Tobacco Use Types Packs/Day Years Used Date Smoking Tobacco: Never Assessed Comments Unknown Sex and Gender Information Value Date Recorded Sex Assigned at Not on file Legal 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
--- OUTSIDE RECORDS SUMMARY | 2025-01-07 10:12 | XMS_ITS | Encounter Summary ---
Author Organization [facility] Address [address] [place] [address] Care Team Providers Care International Marketing Specialist Name Role Phone Abel Hendricks MD Primary Care Provider Encounter Details Date Type Department Care Team (Latest Contact Info) Description 08/06/1999 Outpatient Historical [facility] [address] [place] [phone] Abel Hendricks MD [address] [place] [address] Pure hypercholesterolem (Primary Dx); Syncope and collapse; Gynecologic examination; Unspecified essential hypertension Social History Tobacco Use Types Packs/Day Years Used Date Smoking Tobacco: Never Assessed Comments Unknown Sex and Gender Information Value Date Recorded Sex Assigned at Not on file Legal Sex Female 4:14 AM PERINATOLOGY PHYSICIAN Gender Identity Not on file Sexual Orientation Not on file documented as of this encounter Plan of Treatment Not on file documented as of this encounter Visit Diagnoses Diagnosis Pure hypercholesterolem- Primary Pure hypercholesterolemia Syncope and collapse Gynecologic examination Gynecological examination Unspecified essential hypertension documented in this encounter Care Teams International Marketing Specialist Relationship Specialty Start Date End Date Abel Hendricks MD [address] [place] [address] PCP - General 08/12/02 documented as of this encounter
--- OUTSIDE RECORDS SUMMARY | 2025-01-07 10:12 | XMS_ITS | Encounter Summary ---
Author Organization [facility] Address [address] [place] [address] Care Team Providers Care Engineering Analyst Name Role Phone Abel Hendricks MD Primary Care Provider Encounter Details Date Type Department Care Team (Latest Contact Info) Description 12/20/1999 Outpatient [facility] [address] [place] [phone] Abel Hendricks MD [address] [place] [address] Closed fracture of unspecified part of fibula (Primary Dx) Social History Tobacco Use Types Packs/Day Years Used Date Smoking Tobacco: Never Assessed Comments Unknown Sex and Gender Information Value Date Recorded Sex Assigned at Not on file Legal Sex Female 4:14 AM TOE PULLER Gender Identity Not on file Sexual Orientation Not on file documented as of this encounter Plan of Treatment Not on file documented as of this encounter Visit Diagnoses Diagnosis Closed fracture of unspecified part of fibula- Primary documented in this encounter Care Teams Engineering Analyst Relationship Specialty Start Date End Date Abel Hendricks MD [address] [place] [address] PCP - General 08/12/02 documented as of this encounter
--- OUTSIDE RECORDS SUMMARY | 2025-01-07 10:12 | XMS_ITS | Encounter Summary ---
Author Organization [employer] [facility] Address [address] [facility] [facility] [place] [address] Care Team Providers Care Cyber Transport Systems Specialist Name Role Phone Abel Hendricks MD Primary Care Provider Encounter Details Date Type Department Care Team (Latest Contact Info) Description 08/12/2002 Outpatient [facility] [address] [place] [address] Abel Hendricks MD [address] [place] [address] SCREENING MAMM-MAILG NEOPL-OTHER (Primary Dx) Social History Tobacco Use Types Packs/Day Years Used Date Smoking Tobacco: Never Assessed Comments Unknown Sex and Gender Information Value Date Recorded Sex Assigned at Not on file Legal Sex Female 4:14 AM CAT DOG OR OTHER PET GROOMER Gender Identity Not on file Sexual Orientation Not on file documented as of this encounter Plan of Treatment Not on file documented as of this encounter Visit Diagnoses Diagnosis Other screening mammogram- Primary documented in this encounter Care Teams Cyber Transport Systems Specialist Relationship Specialty Start Date End Date Abel Hendricks MD [address] [place] [address] PCP - General 08/12/02 documented as of this encounter
--- OUTSIDE RECORDS SUMMARY | 2025-01-07 10:12 | XMS_ITS | Encounter Summary ---
Author Organization [facility] Address [address] [facility] Attn: [place] [address] Care Team Providers Care Internal Controls Analyst Name Role Phone Abel Hendricks MD Primary Care Provider Encounter Details Date Type Department Care Team (Late st Contact Info) Description 09/22/1999 Outpatient Historical [facility], [facility] [address] [place] [address] Social History Tobacco Use Types Packs/Day Years Used Date Smoking Tobacco: Never Assessed Comments Unknown Sex and Gender Information Value Date Recorded Sex Assigned at Not on file Legal Sex Female 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
--- OUTSIDE RECORDS SUMMARY | 2025-01-07 10:12 | XMS_ITS | Encounter Summary ---
Author Organization [facility] Address [address] [facility] Attn: [place] [address] Care Team Providers Care Ornamental Metal Fabricator Apprentice Name Role Phone Abel Hendricks MD Primary Care Provider Encounter Details Date Type Department Care Team (Late st Contact Info) Description 07/01/2001 Outpatient Historical Abel Hendricks MD [address] [place] [address] Social History Tobacco Use Types Packs/Day Years Used Date Smoking Tobacco: Never Assessed Comments Unknown Sex and Gender Information Value Date Recorded Sex Assigned at Not on file Legal Sex Female 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
--- OUTSIDE RECORDS SUMMARY | 2025-01-07 10:12 | XMS_ITS | Encounter Summary ---
Author Organization [facility] Address [address] [place] [address] Care Team Providers Care Compliance Lead Name Role Phone Abel Hendricks MD Primary Care Provider [phone] Encounter Details Date Type Department Care Team (Latest Contact Info) Description 01/02/2000 Outpatient Historical [facility] [address] [place] [phone] Abel Hendricks MD [address] [place] [address] Closed fracture of unspecified part of fibula (Primary Dx); Pain in limb Social History Tobacco Use Types Packs/Day Years Used Date Smoking Tobacco: Never Assessed Comments Unknown Sex and Gender Information Value Date Recorded Sex Assigned at Not on file Legal Sex Female 4:14 AM GASOLINE ATTENDANT Gender Identity Not on file Sexual Orientation Not on file documented as of this encounter Plan of Treatment Not on file documented as of this encounter Visit Diagnoses Diagnosis Closed fracture of unspecified part of fibula- Primary Pain in limb Pain in soft tissues of limb documented in this encounter Care Teams Compliance Lead Relationship Specialty Start Date End Date Abel Hendricks MD [address] [place] [address] PCP - General 08/12/02 documented as of this encounter
--- OUTSIDE RECORDS SUMMARY | 2025-01-07 10:12 | XMS_ITS | Encounter Summary ---
Author Organization [facility] Address [address] [place] [address] Care Team Providers Care Mattress Specialist Name Role Phone Abel Hendricks MD Primary Care Provider [phone] Encounter Details Date Type Department Care Team (Latest Contact Info) Description 09/06/1999 [facility]patient [facility] [address] [place] [phone] Abel Hendricks MD [address] [place] [address] Pure hypercholesterolem (Primary Dx); Syncope and collapse Social History Tobacco Use Types Packs/Day Years Used Date Smoking Tobacco: Never Assessed Comments Unknown Sex and Gender Information Value Date Recorded Sex Assigned at Not on file Legal Sex Female 4:14 AM SLOTTER OPERATOR HELPER Gender Identity Not on file Sexual Orientation Not on file documented as of this encounter Plan of Treatment Not on file documented as of this encounter Visit Diagnoses Diagnosis Pure hypercholesterolem- Primary Pure hypercholesterolemia Syncope and collapse documented in this encounter Care Teams Mattress Specialist Relationship Specialty Start Date End Date Abel Hendricks MD [address] [place] [address] PCP - General 08/12/02 documented as of this encounter
--- OUTSIDE RECORDS SUMMARY | 2025-01-07 10:12 | XMS_ITS | Encounter Summary ---
Author Organization [facility] Address [address] [place] [address] Care Team Providers Care Transfer Iron Operator Name Role Phone Abel Hendricks MD Primary Care Provider Encounter Details Date Type Department Care Team (Late st Contact Info) Description 07/01/2001 Outpatient Historical [facility] [place] [address] [place] [address] Melvi Abdul MD NO ADDRESS ON FILE LUMP OR MASS IN BREAST (Primary Dx) Social History Tobacco Use Types Packs/Day Years Used Date Smoking Tobacco: Never Assessed Comments Unknown Sex and Gender Information Value Date Recorded Sex Assigned at Not on file Legal Sex Female 4:14 AM RADIO INTERFERENCE SUPERVISOR Gender Identity Not on file Sexual Orientation Not on file documented as of this encounter Plan of Treatment Not on file documented as of this encounter Visit Diagnoses Diagnosis Lump or mass in breast- Primary documented in this encounter Care Teams Transfer Iron Operator Relationship Specialty Start Date End Date Abel Hendricks MD [address] [place] [address] PCP - General 08/12/02 documented as of this encounter
--- OUTSIDE RECORDS SUMMARY | 2025-01-07 10:12 | XMS_ITS | Encounter Summary ---
Author Organization [email or web address] Address [address] [facility] Attn: [place] [address] Care Team Providers Care Plant Control Aide Name Role Phone Abel Hendricks MD Primary Care Provider Encounter Details Date Type Department Care Team (Late st Contact Info) Description 07/01/2001 Outpatient Historical Abel Hendricks MD [address] [place] [address] Social History Tobacco Use Types Packs/Day Years Used Date Smoking Tobacco: Never Assessed Comments Unknown Sex and Gender Information Value Date Recorded Sex Assigned at Not on file Legal Sex Female 4:14 AM CONTRACT CLERK Gender Identity Not on file Sexual Orientation Not on file documented as of this encounter Plan of Treatment Not on file documented as of this encounter Visit Diagnoses Not on filedocumented in this encounter Care Teams Plant Control Aide Relationship Specialty Start Date End Date Abel Hendricks MD [address] [place] [address] PCP - General 08/12/02 documented as of this encounter
--- OUTSIDE RECORDS SUMMARY | 2025-01-07 10:12 | XMS_ITS | Encounter Summary ---
Author Organization [employer] [facility] Address [address] [place] [address] Care Team Providers Care Proposal Writer Name Role Phone Abel Hendricks MD Primary Care Provider [phone] Encounter Details Date Type Department Care Team (Latest Contact Info) Description 04/16/2000 Outpatient Historical [facility] [place] [facility] Kenroy Bautista MD NO ADDRESS ON FILE Other specified aftercare following surgery (Primary Dx) Social History Tobacco Use Types Packs/Day Years Used Date Smoking Tobacco: Never Assessed Comments Unknown Sex and Gender Information Value Date Recorded Sex Assigned at Not on file Legal Sex Female 4:14 AM AGED OR DISABLED CARE WORKER Gender Identity Not on file Sexual Orientation Not on file documented as of this encounter Plan of Treatment Not on file documented as of this encounter Visit Diagnoses Diagnosis Other specified aftercare following surgery- Primary documented in this encounter Care Teams Proposal Writer Relationship Specialty Start Date End Date Abel Hendricks MD [address] [place] [address] PCP - General 08/12/02 documented as of this encounter
--- OUTSIDE RECORDS SUMMARY | 2025-01-07 10:12 | XMS_ITS | Encounter Summary ---
Author Organization [facility] Address [address] [place] [address] Care Team Providers Care Cash Poster Name Role Phone Abel Hendricks MD Primary Care Provider Encounter Details Date Type Department Care Team (Latest Contact Info) Description 09/14/[address] [facility] ([place], [place] [address] [place] [address] Abel Hendricks MD [address] [place] [address] Depressive disorder, not elsewhere classified (Primary Dx); Swelling of limb; Pain in limb Social History Tobacco Use Types Packs/Day Years Used Date Smoking Tobacco: Never Assessed Comments Unknown Sex and Gender Information Value Date Recorded Sex Assigned at Not on file Legal Sex Female 4:14 AM REGULATORY INTERNSHIP Gender Identity Not on file Sexual Orientation Not on file documented as of this encounter Plan of Treatment Not on file documented as of this encounter Visit Diagnoses Diagnosis Depressive disorder, not elsewhere classified- Primary Swelling of limb Pain in limb Pain in soft tissues of limb documented in this encounter Care Teams Cash Poster Relationship Specialty Start Date End Date Abel Hendricks MD [address] [place] [address] PCP - General 08/12/02 documented as of this encounter
--- OUTSIDE RECORDS SUMMARY | 2025-01-07 10:13 | XMS_ITS | Encounter Summary ---
Author Organization [employer] [facility] Address [address] [facility] [place] [address] Care Team Providers Care Track Machine Operator Repairer Name Role Phone Abel Hendricks MD Primary Care Provider Encounter Details Date Type Department Care Team (Latest Contact Info) Description 03/17/2000 Outpatient Historical [facility] [place] [facility] Kenroy Bautista MD NO ADDRESS ON FILE Carpal tunnel syndrome (Primary Dx) Social History Tobacco Use Types Packs/Day Years Used Date Smoking Tobacco: Never Assessed Comments Unknown Sex and Gender Information Value Date Recorded Sex Assigned at Not on file Legal Sex Female 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
--- OUTSIDE RECORDS SUMMARY | 2025-01-07 10:13 | XMS_ITS | Encounter Summary ---
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) Social History Tobacco Use Types Packs/Day Years Used Date Smoking Tobacco: Never Assessed Comments Unknown Sex and Gender Information Value Date Recorded Sex Assigned at Not on file Legal Sex Female 4:14 AM BOTTOM PAINTER Gender Identity Not on file Sexual Orientation Not on file documented as of this encounter Plan of Treatment Not on file documented as of this encounter Visit Diagnoses Diagnosis Benign hypertensive heart disease without heart failure- Primary documented in this encounter Care Teams Brazing Furnace Feeder Relationship Specialty Start Date End Date Abel Hendricks MD [address] [place] [address] PCP - General 08/12/02 documented as of this encounter
--- OUTSIDE RECORDS SUMMARY | 2025-01-07 10:13 | XMS_ITS | Clinical Summary ---
Author Organization [facility] Address [address] [place] [address] Care Team Providers Care Cover Creaser Name Role Phone Abel Hendricks MD Primary [...] on file Legal Sex Female 4:14 AM O AND M SUPERVISOR Gender Identity Not on file Sexual [...] INFLUENZA VACCINE (#1) [address] [place] [address] [employer] GOLD [employer]US [id number] HMO Care Teams Cover Creaser Relationship Specialty Start Date End Date Abel Hendricks MD [address] [place] [address] PCP - General 08/12/02
--- OUTSIDE RECORDS SUMMARY | 2025-01-07 10:13 | XMS_ITS | Encounter Summary ---
Author Organization [facility] Address [address] [place] [address] Care Team Providers Care Government Property Inspector Name Role Phone Abel Hendricks MD Primary Care Provider Encounter Details Date Type Department Care Team (Late st Contact Info) Description 03/20/1998 Outpatient Historical [facility] [place] [address] [facility] [address] [place] [address] Melvi Abdul MD NO ADDRESS ON FILE Other screening mammogram (Primary Dx) Social History Tobacco Use Types Packs/Day Years Used Date Smoking Tobacco: Never Assessed Comments Unknown Sex and Gender Information Value Date Recorded Sex Assigned at Not on file Legal Sex Female 4:14 AM DIE REPAIRER STAMPING Gender Identity Not on file Sexual Orientation Not on file documented as of this encounter Plan of Treatment Not on file documented as of this encounter Visit Diagnoses Diagnosis Other screening mammogram- Primary documented in this encounter Care Teams Government Property Inspector Relationship Specialty Start Date End Date Abel Hendricks MD [address] [place] [address] PCP - General 08/12/02 documented as of this encounter
--- OUTSIDE RECORDS SUMMARY | 2025-01-07 10:13 | XMS_ITS | Encounter Summary ---
Author Organization [facility] Address [address] [place] [address] Care Team Providers Care Double End Trimmer Name Role Phone Abel Hendricks MD Primary Care Provider Encounter Details Date Type Department Care Team (Latest Contact Info) Description 12/24/1998 Outpatient Historical [facility] [address] [place] [address] Cm Terrell MD NO ADDRESS ON FILE Tachycardia, unspecified (Primary Dx); Depressive disorder, not elsewhere classified Social History Tobacco Use Types Packs/Day Years Used Date Smoking Tobacco: Never Assessed Comments Unknown Sex and Gender Information Value Date Recorded Sex Assigned at Not on file Legal Sex Female 4:14 AM INSTALLATION HELPER Gender Identity Not on file Sexual Orientation Not on file documented as of this encounter Plan of Treatment Not on file documented as of this encounter Visit Diagnoses Diagnosis Tachycardia, unspecified- Primary Depressive disorder, not elsewhere classified documented in this encounter Care Teams Double End Trimmer Relationship Specialty Start Date End Date Abel Hendricks MD [address] [place] [address] PCP - General 08/12/02 documented as of this encounter
--- OUTSIDE RECORDS SUMMARY | 2025-01-07 10:13 | XMS_ITS | Encounter Summary ---
Author Organization [facility] Address [address] Attn: [place] [address] Care Team Providers Care Senior Principal Software Engineer Name Role Phone Abel Hendricks MD Primary Care Provider Encounter Details Date Type Department Care Team (Late st Contact Info) Description 09/24/1999 Outpatient Historical [facility] rein[facility] D, DO [address] [place] [address] Social History Tobacco Use Types Packs/Day Years Used Date Smoking Tobacco: Never Assessed Comments Unknown Sex and Gender Information Value Date Recorded Sex Assigned at Not on file Legal Sex Female 4:14 AM TRACKMAN Gender Identity Not on file Sexual Orientation Not on file documented as of this encounter Plan of Treatment Not on file documented as of this encounter Visit Diagnoses Not on filedocumented in this encounter Care Teams Senior Principal Software Engineer Relationship Specialty Start Date End Date Abel Hendricks MD [address] [place] [address] PCP - General 08/12/02 documented as of this encounter
--- OUTSIDE RECORDS SUMMARY | 2025-01-07 10:13 | XMS_ITS | Encounter Summary ---
Author Organization [facility] Address [address] [place] [address] Care Team Providers Care Interventional Tech Name Role Phone Abel Hendricks MD Primary Care Provider [phone] Encounter Details Date Type Department Care Team (Latest Contact Info) Description 11/22/1999 Outpatient Historical [facility] [address] [place] [address] Abel Hendricks MD [address] [place] [address] Benign hypertension (Primary Dx); Obesity, unspecified; Pure hypercholesterolem Social History Tobacco Use Types Packs/Day Years Used Date Smoking Tobacco: Never Assessed Comments Unknown Sex and Gender Information Value Date Recorded Sex Assigned at Not on file Legal Sex Female 4:14 AM INSIDE SALES ADVISOR Gender Identity Not on file Sexual Orientation Not on file documented as of this encounter Plan of Treatment Not on file documented as of this encounter Visit Diagnoses Diagnosis Benign hypertension- Primary Essential hypertension, benign Obesity, unspecified Pure hypercholesterolem Pure hypercholesterolemia documented in this encounter Care Teams Interventional Tech Relationship Specialty Start Date End Date Abel Hendricks MD [address] [place] [address] PCP - General 08/12/02 documented as of this encounter
--- OUTSIDE RECORDS SUMMARY | 2025-01-07 10:13 | XMS_ITS | Encounter Summary ---
Author Organization [facility] Address [address] [place] [address] Care Team Providers Care Chemical Treatment Plant Technician Name Role Phone Abel Hendricks MD Primary Care Provider Encounter Details Date Type Department Care Team (Latest Contact Info) Description 08/12/2002 Outpatient Historical [facility] [address] [place] [address] Abel Hendricks MD [address] [place] [address] Routine medical exam (Primary Dx); Pure hypercholesterolem; Benign hypertension; ABNORMAL WEIGHT GAIN Social History Tobacco Use Types Packs/Day Years Used Date Smoking Tobacco: Never Assessed Comments Unknown Sex and Gender Information Value Date Recorded Sex Assigned at Not on file Legal Sex Female 4:14 AM BUILDING CONSTRUCTION IRONWORKER Gender Identity Not on file Sexual Orientation Not on file documented as of this encounter Plan of Treatment Not on file documented as of this encounter Visit Diagnoses Diagnosis Routine medical exam- Primary Routine general medical examination at a health care facility Pure hypercholesterolem Pure hypercholesterolemia Benign hypertension Essential hypertension, benign Abnormal weight gain documented in this encounter Care Teams Chemical Treatment Plant Technician Relationship Specialty Start Date End Date Abel Hendricks MD [address] [place] [address] PCP - General 08/12/02 documented as of this encounter
--- OUTSIDE RECORDS SUMMARY | 2025-01-07 10:13 | XMS_ITS | Encounter Summary ---
Author Organization [facility] Address [address] [facility] [place] [address] Care Team Providers Care Science Job Titles Name Role Phone Abel Hendricks MD Primary Care Provider Encounter Details Date Type Department Care Team (Latest Contact Info) Description 03/20/1998 Outpatient Historical [facility] [address] [place] [address] Cm Terrell MD NO ADDRESS ON FILE Gynecologic examination (Primary Dx); Benign hypertensive heart disease without heart failure Social History Tobacco Use Types Packs/Day Years Used Date Smoking Tobacco: Never Assessed Comments Unknown Sex and Gender Information Value Date Recorded Sex Assigned at Not on file Legal Sex Female 4:14 AM PRINTING TABLE HAND Gender Identity Not on file Sexual Orientation Not on file documented as of this encounter Plan of Treatment Not on file documented as of this encounter Visit Diagnoses Diagnosis Gynecologic examination- Primary Gynecological examination Benign hypertensive heart disease without heart failure documented in this encounter Care Teams Science Job Titles Relationship Specialty Start Date End Date Abel Hendricks MD [address] [place] [address] PCP - General 08/12/02 documented as of this encounter
--- OUTSIDE RECORDS SUMMARY | 2025-01-07 10:13 | XMS_ITS | Encounter Summary ---
Author Organization [facility] Address [address] [facility] Attn: [place] [address] Care Team Providers Care Marketing [employer] Name Role Phone Abel Hendricks MD Primary [...] on file Legal Sex Female 4:14 AM INLETTER Gender Identity Not on file Sexual Orientation Not on file documented as of this encounter Plan of Treatment Not on file documented as of this encounter Visit Diagnoses Not on filedocumented in this encounter Care Teams Marketing [employer] Relationship Specialty Start Date End Date Abel Hendricks MD [address] [place] [address] PCP - General 08/12/02 documented as of this encounter
--- OUTSIDE RECORDS SUMMARY | 2025-01-07 10:13 | XMS_ITS | Encounter Summary ---
Author Organization [facility] Address [address] [place] [address] Care Team Providers Care Gun Number Name Role Phone Abel Hendricks MD Primary Care Provider [phone] Encounter Details Date Type Department Care Team (Latest Contact Info) Description 09/30/1999 Outpatient Historical [facility] [address] [place] [address] Abel Hendricks MD [address] [place] [address] Syncope and collapse (Primary Dx); Unspecified essential hypertension Social History Tobacco Use Types Packs/Day Years Used Date Smoking Tobacco: Never Assessed Comments Unknown Sex and Gender Information Value Date Recorded Sex Assigned at Not on file Legal Sex Female 4:14 AM MANAGER CLINIC Gender Identity Not on file Sexual Orientation Not on file documented as of this encounter Plan of Treatment Not on file documented as of this encounter Visit Diagnoses Diagnosis Syncope and collapse- Primary Unspecified essential hypertension documented in this encounter Care Teams Gun Number Relationship Specialty Start Date End Date Abel Hendricks MD [address] [place] [address] PCP - General 08/12/02 documented as of this encounter
--- OUTSIDE RECORDS SUMMARY | 2025-01-07 10:13 | XMS_ITS | Encounter Summary ---
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) Social History Tobacco Use Types Packs/Day Years Used Date Smoking Tobacco: Never Assessed Comments Unknown Sex and Gender Information Value Date Recorded Sex Assigned at Not on file Legal Sex Female 4:14 AM SHIP PURSER Gender Identity Not on file Sexual Orientation Not on file documented as of this encounter Plan of Treatment Not on file documented as of this encounter Visit Diagnoses Diagnosis Benign hypertensive heart disease without heart failure- Primary documented in this encounter Care Teams Supervisor Commercial Fish Hatcher[employer] Relationship Specialty Start Date End Date Abel Hendricks MD [address] [place] [address] PCP - General 08/12/02 documented as of this encounter
--- OUTSIDE RECORDS SUMMARY | 2025-01-07 10:13 | XMS_ITS | Encounter Summary ---
Author Organization [facility] Address [address] [place] [address] Care Team Providers Care Belt Builder Name Role Phone Abel Hendricks MD Primary Care Provider [phone] Encounter Details Date Type Department Care Team (Latest Contact Info) Description 10/17/1999 Outpatient Historical [facility] [address] [place] [address] Abel Hendricks MD [address] [place] [address] Obesity, unspecified (Primary Dx); Dizziness and giddiness Social History Tobacco Use Types Packs/Day Years Used Date Smoking Tobacco: Never Assessed Comments Unknown Sex and Gender Information Value Date Recorded Sex Assigned at Not on file Legal Sex Female 4:14 AM REACTOR KETTLE OPERATOR Gender Identity Not on file Sexual Orientation Not on file documented as of this encounter Plan of Treatment Not on file documented as of this encounter Visit Diagnoses Diagnosis Obesity, unspecified- Primary Dizziness and giddiness documented in this encounter Care Teams Belt Builder Relationship Specialty Start Date End Date Abel Hendricks MD [address] [place] [address] PCP - General 08/12/02 documented as of this encounter
[2025-01-07 10:17] VITALS: BP 148/79; PULSE 71; O2SAT 92
--- NOTE | 2025-01-07 10:29 | XRR_ITS ---
PROCEDURE INFORMATION: Exam: XR Left Forearm Exam date and time: 01/07/2025 11:04 AM Age: 79 years old Clinical indication: Upper arm; Left; Lt upper ext pain/guarding post fall yesterday TECHNIQUE: Imaging protocol: Radiologic exam of the left forearm. Views: 2 views. COMPARISON: No relevant prior studies available. FINDINGS: Bones/joints: Bones are diffusely osteopenic. Wrist and elbow alignment are normal. No acute fracture. There is moderate osteoarthritis at the 1st carpometacarpal joint. Soft tissues: Visible soft tissues are unremarkable. XR/XR forearm LT 2V [id number] IMPRESSION: No acute fracture.
--- NOTE | 2025-01-07 10:29 | XRR_ITS ---
PROCEDURE INFORMATION: Exam: XR Left Humerus Exam date and time: 01/07/2025 11:04 AM Age: 79 years old Clinical indication: Pain; Lower or forearm; Left; Additional info: Lt upper ext pain/guarding post fall yesterday TECHNIQUE: Imaging protocol: Radiologic exam of the left humerus. Views: 2 or more views. COMPARISON: CT cervical spin wo con* [id number] 01/07/2025 2:11 AM FINDINGS: Bones/joints: Shoulder and elbow alignment are normal. No acute fracture. Soft tissues: Visible soft tissues are unremarkable. XR/[place] [id number] IMPRESSION: No acute fracture.
--- NOTE | 2025-01-07 10:31 | W.ED.EXTPRO ---
HPI - Extremity Problem General: Chief complaint: Extremity Injury, Upper Stated complaint: left arm pain Time Seen by Provider: 01/07/25 10:15 History of Present Illness: 79-year-old female resident [facility] returns to the emergency room [facility] was reporting left arm pain patient was seen overnight had right arm pain was found to have a humerus fracture on the right and was put appropriately in a shoulder immobilizer. Patient is complaining of right arm pain denies left arm pain and can move without difficulty on the left arm or no pain. Per nursing staff the report from the [facility] was that they were concerned there that she had injured her left arm as well. Related Data Home Medications ?Medication ?Instructions ?Recorded ?Confirmed clopidogrel 75 mg tablet 75 mg PO DAILY 09/23/22 05/03/23 Previous Rx's ?Medication ?Instructions ?Recorded metoprolol succinate 50 mg See Rx Instructions .Route 11/12/22 tablet,extended release 24 hr .COMPLEX #90 tabs nortriptyline 10 mg capsule See Rx Instructions .Route 11/17/22 .COMPLEX #30 caps cyanocobalamin (vitamin B-12) 1,000 mcg IM .monthly #10 mL 12/31/22 1,000 mcg/mL injection solution alendronate 70 mg tablet See Rx Instructions .Route 03/09/23 .COMPLEX #12 tabs thiamine HCl (vitamin B1) 50 mg 100 mg (2 x 50 mg) PO DAILY #60 03/09/23 tablet tabs memantine 5 mg tablet 5 mg PO BID #90 tabs 03/10/23 citalopram 40 mg tablet See Rx Instructions .Route 03/23/23 .COMPLEX #90 tabs rosuvastatin 20 mg tablet See Rx Instructions .Route 04/14/23 .COMPLEX #90 tabs amlodipine 10 mg tablet See Rx Instructions .Route 04/28/23 .COMPLEX #90 tabs hydrocodone 5 mg-acetaminophen 325 1 tab PO Q8H PRN pain #7 tabs 01/07/25 mg tablet Allergies Allergy/AdvReac Type Severity Reaction Status Date / Time No Known Allergies Allergy Verified 03/27/23 15:29 [facility] ED PFSH: Medical History Depression Dementia Fracture Risk Assessment Score (FRAX) indicating greater than 20% risk for major osteoporosis-related fracture Osteopenia Osteopenia after menopause Mitral valve annular calcification Dyslipidemia Hypertension Cholelithiases Hiatal hernia History of kidney stones Diverticulosis History of stroke basal ganglia lacunar infarcts History of heart attack anteroapical [place] Primary osteoarthritis of right knee Surgical History History of cataract surgery History of total knee arthroplasty left History of carpal tunnel release Family History Mother CAD (coronary artery disease) Father CAD (coronary artery disease) Sister Dementia Brother CAD (coronary artery disease) Social History Smoking and tobacco/nicotine status: current every day tobacco/nicotine user cigarettes [ Other cigarette details: started age 74, 2 packs per week] Alcohol intake: current Alcohol intake frequency: few times a week Substance/Drug Use: never Lives independently: Yes Household members: none Physical Exam Const: ORIENTATION/CONSCIOUSNESS: Yes awake HENMT: COMMON NORMALS: normocephalic, atraumatic and hearing grossly normal bilaterally HEAD & SCALP: normocephalic and atraumatic Resp: COMMON NORMALS: normal respiratory effort, No retractions, No use of accessory muscles and clear to auscultation bilaterally AUSCULTATION: clear to auscultation bilaterally Cardio: COMMON NORMALS: regular rate, regular rhythm and No murmurs present (Cardio) RATE: regular rate RHYTHM: regular rhythm GI: COMMON NORMALS: Soft to palpation and No hepatosplenomegaly present AUSCULTATION: Yes normoactive bowel sounds PALPATION: Yes Soft to palpation, No Tenderness to palpation present (GI), No Guarding due to palpation present (GI) and Yes No hepatosplenomegaly present Extremity: OTHER: Right arm is in a shoulder immobilizer. Left arm full range of motion no signs of pain at the shoulder elbow or wrist or within the head no lacerations or abrasions no deformity Skin: COMMON NORMALS: no rashes or lesions noted GENERAL SKIN EXAM: no rashes or lesions noted Course Vital Signs: Vital signs: Vital Signs Temperature 97.4 F L 01/07/25 10:08 Pulse Rate 72 01/07/25 11:32 Respiratory Rate 16 01/07/25 10:08 Blood Pressure 148/88 01/07/25 11:32 Pulse Oximetry 98 01/07/25 11:32 Oxygen Delivery Me thod Room Air 01/07/25 10:08 MDM - Extremity (Nontraumatic) Medical Decision Making X-ray of the left arm and forearm are normal. Clinically there is no sign of fracture discharge back to the [facility] continue same orders as previous for the right proximal humerus fracture Lab Data Radiology Impressions Forearm X-Ray 01/07/25 10:29 IMPRESSION: No acute fracture. Humerus X-Ray 01/07/25 10:29 IMPRESSION: No acute fracture. All radiology interpretation(s) finalized by discharge Discharge Plan Discharge Patient Disposition: Home Clinical Impression: Arm pain, left Closed fracture of proximal end of right humerus Qualifiers: Encounter type: subsequent encounter Fracture morphology: other fracture Fracture alignment: nondisplaced Condition: Stable Prescriptions: No Action memantine 5 mg tablet 5 mg PO BID Qty: 90 2RF Rx Instructions: 1 in am and 2 at night for one week then 2 in am and 2 in pm there after alendronate 70 mg tablet See Rx Instructions .ROUTE .COMPLEX Qty: 12 0RF Dose Instruction: TAKE 1 TABLET BY MOUTH every week Rx Instructions: TAKE 1 TABLET BY MOUTH every week thiamine HCl (vitamin B1) 50 mg tablet 100 mg PO DAILY Qty: 60 2RF metoprolol succinate 50 mg tablet extended release 24 hr See Rx Instructions .ROUTE .COMPLEX Qty: 90 1RF Dose Instruction: TAKE 1 TABLET BY MOUTH EVERY DAY Rx Instructions: TAKE 1 TABLET BY MOUTH EVERY DAY nortriptyline 10 mg capsule See Rx Instructions .ROUTE .COMPLEX Qty: 30 2RF Dose Instruction: take 1 capsule BY MOUTH EVERY DAY Rx Instructions: take 1 capsule BY MOUTH EVERY DAY cyanocobalamin (vitamin B-12) 1,000 mcg/mL solution 1,000 mcg IM .monthly Qty: 10 3RF citalopram 40 mg tablet See Rx Instructions .ROUTE .COMPLEX Qty: 90 0RF Dose Instruction: TAKE 1 TABLET BY MOUTH EVERY DAY Rx Instructions: TAKE 1 TABLET BY MOUTH EVERY DAY rosuvastatin 20 mg tablet See Rx Instructions .ROUTE .COMPLEX Qty: 90 1RF Dose Instruction: TAKE 1 TABLET BY MOUTH EVERY DAY Rx Instructions: TAKE 1 TABLET BY MOUTH EVERY DAY amlodipine 10 mg tablet See Rx Instructions .ROUTE .COMPLEX Qty: 90 1RF Dose Instruction: TAKE 1 TABLET BY MOUTH EVERY DAY Rx Instructions: TAKE 1 TABLET BY MOUTH EVERY DAY clopidogrel 75 mg tablet 75 mg PO DAILY hydrocodone-acetaminophen 5-325 mg tablet 1 tab PO Q8H PRN (Reason: pain) Qty: 7 0RF Discharge Orders: Discharge ED (Routine); Ordered 01/07/25 Ordered By: Canelo Batista Referrals: Db Yap DO [Primary Care Provider, Internal Medicine] Patient Instructions: Opioid Safety, Pain Management, Patient Portal & Yuliet Instructions Activity Restrictions/Additional Instructions: [facility]. It is very important that you follow up as instructed or that you return to the Emergency Department should you have concerns or if your condition changes or worsens in any way. You were seen in the emergency room with the report of left arm pain. On physical exam there was no pain and no swelling we can move all of the extremity joints at full range of motion was without eliciting any pain. X-rays did not show any fractures. He should continue to wear the sling for the right proximal humerus fracture and follow-up with orthopedics. Print Language: Armenian Coding Level of Care Code ED Resizer Operator for Bennett Arroyo
[2025-01-07 11:32] VITALS: BP 148/88; PULSE 72; O2SAT 98
== END 2025-01-07 11:45 | disposition home or self-care (01) ==
PROVIDERS: Emergency Provider Family Medicine; PCP Internal Medicine
DX: S42.201D Unspecified fracture of upper end of right humerus, subsequent encounter for fracture with routine healing (principal); X58.XXXA Exposure to other specified factors, initial encounter; M79.602 Pain in left arm; Z79.02 Long term (current) use of antithrombotics/antiplatelets; F17.210 Nicotine dependence, cigarettes, uncomplicated; E78.5 Hyperlipidemia, unspecified; I10 Essential (primary) hypertension
CPT/HCPCS: 73060; 73090; 99283

== ENCOUNTER → 2025-01-12 09:22 | Outpatient (BNVA) | payer MEDICARE, MEDICAID, SELFPAY | PROVIDERS: PCP Internal Medicine; Visit Provider Orthopaedic Surgery | DX: S42.201A Unspecified fracture of upper end of right humerus, initial encounter for closed fracture (principal); W19.XXXA Unspecified fall, initial encounter | CPT/HCPCS: 73030; 99203 ==

== ENCOUNTER → 2025-02-09 10:23 | Outpatient (BNVA) | payer MEDICARE, MEDICAID, SELFPAY | PROVIDERS: PCP Internal Medicine; Visit Provider Orthopaedic Surgery | DX: S42.293D Other displaced fracture of upper end of unspecified humerus, subsequent encounter for fracture with routine healing (principal); X58.XXXD Exposure to other specified factors, subsequent encounter | CPT/HCPCS: 73030; 99213 ==

== ENCOUNTER 2025-02-16 20:52 | Emergency (ER) | payer MEDICARE, MEDICAID, SELFPAY ==
[2025-02-16 21:02] VITALS: BMI 26.5
--- OUTSIDE RECORDS SUMMARY | 2025-02-16 21:04 | XMS_ITS | Patient Health Record ---
Author Organization [facility] Address [address] [place] [address] Care Team Providers Care Pot Liner Name Role Phone Gatito Biggs Primary Care Provider Allergies No Known Allergies Reason For Referral [...] History Migrated Social History Occupation: Volunteer at [employer] [place] Problems Problem Type SNOMED Code ICD Code Onset Dates Problem Status W/U Status Risk Notes Problem hypercholesterolemia (disorder) (47530264) Hypercholesteremia (E78.00) Active confirmed Problem Memory loss (14222413) Memory loss (R41.3) Active confirmed Problem Moderate recurrent major depression (08957927) Moderate episode of recurrent major depressive disorder (F33.1) Active confirmed Problem Chronic kidney disease stage 3 (disorder) (289069616) Stage 3 chronic kidney disease (N18.3) Active confirmed Problem Lipids abnormal (114770797) Lipids abnormal (E78.89) Active confirmed Problem Obstructive sleep apnea syndrome (05223765) Obstructive sleep apnea syndrome (G47.33) Active confirmed Problem Hypercholesterolemia (75086354) Hypercholesterolemia (E78.00) Active confirmed Problem Iron deficiency anemia secondary to inadequate dietary iron intake (038012448) Iron deficiency anemia secondary to inadequate dietary iron intake (D50.8) Active confirmed Problem Generalized anxiety disorder (50321584) Generalized anxiety disorder (F41.1) Active confirmed Problem Irritable bowel syndrome with diarrhea (433214226) Irritable bowel syndrome with diarrhea (K58.0) Active confirmed Problem Lumbosacral spondylosis without myelopathy (36807163) Other spondylosis, lumbar region (M47.896) 2017 Active confirmed [id number]- Problem Essential hypertension (50927988) Essential hypertension (I10) Active confirmed Problem COPD - Chronic obstructive pulmonary disease (75180832) Chronic obstructive pulmonary disease, unspecified COPD type (J44.9) Active confirmed Problem Transient ischemic attack (425006278) TIA (transient ischemic attack) (G45.9) Active confirmed Problem Osteoarthritis of knee (242580490) Primary osteoarthritis of both knees (M17.0) Active confirmed Problem History of cerebrovascular accident without residual deficits (242662966) History of CVA (cerebrovascular accident) (Z86.73) Active confirmed Problem Atherosclerotic hear t disease of [place] coronary artery without angina pectoris (309779267669596) Coronary artery disease, angina presence unspecified, unspecified vessel or lesion type, unspecified whether [place] or transplanted heart (I25.10) Active confirmed Problem Osteoarthritis of multiple joints (899587482) Osteoarthritis of multiple joints, unspecified osteoarthritis type (M15.9) Active confirmed Problem Lumbar spondylosis with myelopathy (disorder) (15386823) 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) Active confirmed Problem Porcelain gallbladde r (078923590) 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 confirmed Problem Memory loss (43092983) Memory loss (780.93) 2014 Inactive confirmed [id number]- Problem Dysphagia (30730340) Dysphagia, unspecified (787.20) 2017 Inactive confirmed [id number]- Problem Vertigo (414066717) Vertigo (780.4) 01/28 Inactive confirmed [id number]- Problem Rash (385454766) Rash (782.1) 2015 Inactive confirmed [id number]- Problem Hyperlipidemia (58923546) Hyperlipidemia (272.4) 2018 Inactive confirmed [id number]- Problem Urinary tract infection (54752467) UTI (599.0) 2017 Inactive confirmed [id number]- Problem Impaired fasting glycaemia (241094006) Elevated fasting glucose (790.21) 2018 Inactive confirmed [id number]- Problem Elevated levels of transaminase & lactic acid dehydrogenase (584582791) Elevated SGOT (AST) (790.4) 2018 Inactive confirmed [id number]- Problem Influenza immunization (02222278) Influenza immunization (V04.81) 2018 Inactive confirmed [id number]- Problem Thyroid function tests abnormal (309121953) Abnormal thyroid findings (794.5) 2018 Inactive confirmed [id number]- Problem Foot swelling (524130502) Foot swelling (729.81) 2016 Inactive confirmed [id number]- Problem Urinary incontinence (801283698) Incontinence of urine, other (788.39) 2017 Inactive confirmed [id number]- Problem Hip pain (14726762) Hip pain (719.45) 2018 Inactive confirmed [id number]- Problem Impacted cerumen (73412753) External cerumen impaction (380.4) 2015 Inactive confirmed [id number]- Problem Abnormal findings on diagnostic imaging of breast (576326901) Other (abnormal) findings on radiological examination of breast (793.89) 2014 Inactive confirmed [id number]- Problem Pedal edema (791584234) Pedal edema (782.3) 2018 Inactive confirmed [id number]- Problem Mild major depression, single episode (70130129) Current mild episode of major depressive disorder, unspecified whether recurrent (F32.0) Inactive confirmed Problem Screening mammograph y (58297257) Screening mammogram - other (V76.12) 2017 Inactive confirmed [id number]- Problem Leukopenia (96539658) Decreased white blood cell count, unspecified (D72.819) 2018 Problem resolved confirmed [id number]- Problem Diverticulitis of colon (596851760) Diverticulitis of large intestine without perforation or abscess without bleeding (K57.32) 2018 Problem resolved confirmed [id number]- Problem Cholelithiasis without obstruction (01986484) Calculus of gallbladder without cholecystitis without obstruction (K80.20) 2018 Problem resolved confirmed [id number]- Problem Age-related osteoporosis (729947031) Age-related osteoporosis without current pathological fracture (M81.0) 2015 Problem resolved confirmed [id number]- Plan Of Treatment No Information Insurance Providers Payer Name Payer Address Payer Phone Subscriber Number Group Number Insured Name Patient Relationship to Insured Coverage Start Date Coverage End Date [employer] [place] [address] [place] [phone] [id number] Emma Rodriguez Self - patient is the insured [place] Medicaid [address] [place] [address] [id number] Emma Rodriguez Self - patient is the [...] unspecified vessel or lesion type, unspecified whether [place] or transplanted heart Lumbar and sacral spondylarthritis Porcelain gallbladder Primary osteoarthritis of both knees History of CVA (cerebrovascular accident ) TIA (transient ischemic attack) renal artery stenosis Diverticulitis of colon (resolved 2118) Age-related osteoporosis wit hout current pathological fracture (resolved 02/11/2018) Surgical History Surgery Date(Month/Year) left knee replacement 03/2020 Carpal Tunnel Release Cataract Removal: bilateral Hospitalization History Reason Date(Month/Year) CVA 2010
--- NOTE | 2025-02-16 21:15 | CTR_ITS ---
PROCEDURE INFORMATION: Exam: CT Head Without Contrast Exam date and time: 02/16/2025 9:38 PM Age: 79 years old Clinical indication: Injury or trauma; Fall; Blunt trauma (contusions or hematomas); With loss of consciousness; Not specified; Additional info: Fall on plavix, head trauma blunt TECHNIQUE: Imaging protocol: Computed tomography of the head without contrast. Radiation optimization: All CT scans at this facility use at least one of these dose optimization techniques: automated exposure control; mA and/or kV adjustment per patient size (includes targeted exams where dose is matched to clinical indication); or iterative reconstruction. COMPARISON: CT head wo con* [id number] 01/07/2025 2:09 AM RADIATION DOSE METRICS: Total DLP (mGy-cm): 1096.48 FINDINGS: Brain: No acute intracranial hemorrhage. No acute territorial region of bruno-white dedifferentiation. No extra-axial collection. No mass effect or midline shift. Moderate burden of nonspecific white matter hypoattenuation, most commonly sequela of chronic microvascular ischemic change. Generalized parenchymal volume loss. Remote lacunar infarcts and/or prominent perivascular spaces in the bilateral basal ganglia left thalamus. Cerebral ventricles: No acute hydrocephalus. Paranasal sinuses: Visualized sinuses are well-aerated. No fluid levels. Mastoid air cells: Visualized mastoid air cells are well aerated. Orbital cavities: No acute abnormality of the visualized orbits. Bones: Chronic left orbital floor fracture. No acute calvarial fracture. Soft tissues: Small right scalp contusions. CT/CT head wo con* [id number] IMPRESSION: No acute intracranial hemorrhage or acute calvarial fracture.
[2025-02-16 21:21] VITALS: BP 140/105; PULSE 78; O2SAT 94
--- NOTE | 2025-02-16 21:23 | W.ED.FALL ---
HPI - Fall General: Chief Complaint: Fall Stated Complaint: Fall Time Seen by Provider: 02/16/25 21:07 History of Present Illness: 79-yo F with Hx of dementia, HTN, dyslipidemia, depression, osteopenia, mitral valve annular calcification, cholelithiasis, hiatal hernia, ureteral stones, diverticulosis, and prior basal ganglia lacunar infarct presents after another unwitnessed fall. Pt cannot recall the event but is reportedly at mental baseline. One week ago she sustained a humeral fracture from a separate fall. Today she has a 1 cm V-shaped laceration of the R lower lip with mild active bleeding and a small swelling above the L eyebrow. No mouth or dental pain reported; teeth appear intact. No c/o hip or knee pain. She takes clopidogrel. Related Data Home Medications ?Medication ?Instructions ?Recorded ?Confirmed clopidogrel 75 mg tablet 75 mg PO DAILY 09/23/22 02/09/25 Previous Rx's ?Medication ?Instructions ?Recorded metoprolol succinate 50 mg See Rx Instructions .Route 11/12/22 tablet,extended release 24 hr .COMPLEX #90 tabs nortriptyline 10 mg capsule See Rx Instructions .Route 11/17/22 .COMPLEX #30 caps cyanocobalamin (vitamin B-12) 1,000 mcg IM .monthly #10 mL 12/31/22 1,000 mcg/mL injection solution alendronate 70 mg tablet See Rx Instructions .Route 03/09/23 .COMPLEX #12 tabs thiamine HCl (vitamin B1) 50 mg 100 mg (2 x 50 mg) PO DAILY #60 03/09/23 tablet tabs memantine 5 mg tablet 5 mg PO BID #90 tabs 03/10/23 citalopram 40 mg tablet See Rx Instructions .Route 03/23/23 .COMPLEX #90 tabs rosuvastatin 20 mg tablet See Rx Instructions .Route 04/14/23 .COMPLEX #90 tabs amlodipine 10 mg tablet See Rx Instructions .Route 04/28/23 .COMPLEX #90 tabs hydrocodone 5 mg-acetaminophen 325 1 tab PO Q8H PRN pain #7 tabs 01/07/25 mg tablet Allergies Allergy/AdvReac Type Severity Reaction Status Date / Time No Known Allergies Allergy Verified 02/09/25 07:36 [facility] PFSH: Medical History (Updated 02/17/25 @ 00:55 by Faustino Cannon MD) Depression Dementia Fracture Risk Assessment Score (FRAX) indicating greater than 20% risk for major osteoporosis-related fracture Osteopenia Osteopenia after menopause Mitral valve annular calcification Dyslipidemia Hypertension Cholelithiases Hiatal hernia History of kidney stones Diverticulosis History of stroke basal ganglia lacunar infarcts History of heart attack anteroapical [place] Primary osteoarthritis of right knee Surgical History History of cataract surgery History of total knee arthroplasty left History of carpal tunnel release Family History Mother CAD (coronary artery disease) Father CAD (coronary artery disease) Sister Dementia Brother CAD (coronary artery disease) Social History Smoking and tobacco/nicotine status: never used tobacco/nicotine Alcohol intake: current Alcohol intake frequency: few times a week Substance/Drug Use: never Lives independently: Yes Household members: none Physical Exam Const: COMMON NORMALS: no acute distress HENMT: OTHER: 2 cm mildly raised area of swelling over the left eyebrow. No bony abnormality underlying. No ocular involvement. 1 cm V-shaped laceration of the right lower lip with very mild active bleeding. Teeth do not appear acutely fractured or loose. Eye: COMMON NORMALS: Equal, round and reactive pupils present, EOMs intact bilaterally and no scleral icterus PUPIL: Yes Equal, round and reactive pupils present Resp: COMMON NORMALS: normal respiratory effort and No retractions Cardio: COMMON NORMALS: regular rate, regular rhythm and No murmurs present (Cardio) RATE: regular rate RHYTHM: regular rhythm GI: COMMON NORMALS: Normal to inspection, nondistended, normoactive bowel sounds present, Soft to palpation and non-tender PALPATION: Yes Soft to palpation Extremity: NARRATIVE EXTREMITY EXAM: The multiple abrasions and wounds which are wrapped from previous falls on both upper extremities and right lower extremity. No pain with gentle palpation and motion of all joints and long bones With exception of ecchymosis at the base of the left small finger with lateral displacement of the small finger concerning for proximal phalanx fracture. Exquisite pain with motion of the finger. Skin: COMMON NORMALS: no rashes or lesions noted GENERAL SKIN EXAM: no rashes or lesions noted Course Vital Signs: Vital signs: Vital Signs Pulse Rate 74 02/17/25 00:31 Respiratory Rate 16 02/17/25 00:31 Blood Pressure 184/96 02/16/25 22:21 Pulse Oximetry 96 02/17/25 00:31 Oxygen Delivery Me thod Room Air 02/17/25 00:31 MDM - Fall Medical Decision Making Patient remained hemodynamically stable throughout ED course. X-ray shows acute proximal phalanx fracture of the left small finger. Fracture was reduced and then using an AlumaFoam splint and nakia tape to the fourth finger, reduction and splinting was achieved. Lip laceration was thoroughly cleansed and hemostasis achieved. I offered her several stitches but she graciously declines and family agrees she does not necessarily need the suture as the tissue is well-approximated and she is strongly opposed to it. There are no other injuries found on workup. She will be discharged back to her [facility] in stable condition. Lab Data Radiology Impressions Head CT 02/16/25 21:15 IMPRESSION: No acute intracranial hemorrhage or acute calvarial fracture. Hand X-Ray 02/16/25 23:07 IMPRESSION: Acute mildly comminuted and angulated fracture of the small finger proximal phalangeal base. Shoulder X-Ray 02/16/25 23:07 IMPRESSION: Redemonstrated right humeral neck fracture. Alignment is similar to 02/09/2025 allowing for differences in patient positioning. No definite new fracture identified. All radiology interpretation(s) finalized by discharge Discharge Plan Discharge Patient Disposition: Home Clinical Impression: Multiple falls, Laceration of lower lip, Finger fracture, left Condition: Stable Prescriptions: No Action memantine 5 mg tablet 5 mg PO BID Qty: 90 2RF Rx Instructions: 1 in am and 2 at night for one week then 2 in am and 2 in pm there after alendronate 70 mg tablet See Rx Instructions .ROUTE .COMPLEX Qty: 12 0RF Dose Instruction: TAKE 1 TABLET BY MOUTH every week Rx Instructions: TAKE 1 TABLET BY MOUTH every week thiamine HCl (vitamin B1) 50 mg tablet 100 mg PO DAILY Qty: 60 2RF metoprolol succinate 50 mg tablet extended release 24 hr See Rx Instructions .ROUTE .COMPLEX Qty: 90 1RF Dose Instruction: TAKE 1 TABLET BY MOUTH EVERY DAY Rx Instructions: TAKE 1 TABLET BY MOUTH EVERY DAY nortriptyline 10 mg capsule See Rx Instructions .ROUTE .COMPLEX Qty: 30 2RF Dose Instruction: take 1 capsule BY MOUTH EVERY DAY Rx Instructions: take 1 capsule BY MOUTH EVERY DAY cyanocobalamin (vitamin B-12) 1,000 mcg/mL solution 1,000 mcg IM .monthly Qty: 10 3RF citalopram 40 mg tablet See Rx Instructions .ROUTE .COMPLEX Qty: 90 0RF Dose Instruction: TAKE 1 TABLET BY MOUTH EVERY DAY Rx Instructions: TAKE 1 TABLET BY MOUTH EVERY DAY rosuvastatin 20 mg tablet See Rx Instructions .ROUTE .COMPLEX Qty: 90 1RF Dose Instruction: TAKE 1 TABLET BY MOUTH EVERY DAY Rx Instructions: TAKE 1 TABLET BY MOUTH EVERY DAY amlodipine 10 mg tablet See Rx Instructions .ROUTE .COMPLEX Qty: 90 1RF Dose Instruction: TAKE 1 TABLET BY MOUTH EVERY DAY Rx Instructions: TAKE 1 TABLET BY MOUTH EVERY DAY clopidogrel 75 mg tablet 75 mg PO DAILY hydrocodone-acetaminophen 5-325 mg tablet 1 tab PO Q8H PRN (Reason: pain) Qty: 7 0RF Discharge Orders: Discharge ED (Routine); Ordered 02/17/25 Ordered By: Faustino Cannon Referrals: Db Yap DO [Primary Care Provider, Internal Medicine] Discharge Diet: Usual diet Discharge Activity: Increase activity as tolerated Patient Instructions: Finger Fracture (ED), Patient Portal & Yuliet Instructions Activity Restrictions/Additional Instructions: Finger fracture was treated with a nakia splint. The splint can be replaced or rewrapped for comfort on a daily basis. No surgery is required. Lip laceration will heal by secondary intention. There were no other injuries on scans and x-rays today. Print Language: Latvian Coding Level of Care Code ED Temporary Administrative Assistant for Bennett Arroyo
[2025-02-16 22:21] VITALS: BP 184/96; PULSE 77; O2SAT 95
[2025-02-16] MEDS: lidocaine-epi 1% 20 mL INJ 3 ML INJECTION (22:30)
--- NOTE | 2025-02-16 23:07 | XRR_ITS ---
PROCEDURE INFORMATION: Exam: XR Left Hand Exam date and time: 02/16/2025 11:10 PM Age: 79 years old Clinical indication: Injury or trauma; Fall; Swelling (edema); Hand; Left; Additional info: Fall, swelling, bruising 5th digit and hand TECHNIQUE: Imaging protocol: Radiologic exam of the left hand. Views: 3 or more views. COMPARISON: CR (UP EXM, ) 01/07/2025 11:04 AM FINDINGS: Bones/joints: Osseous demineralization. Multifocal degenerative change, severe at the thumb metacarpal phalangeal joint. Acute mildly comminuted fracture of the small finger proximal phalangeal base with apex volar angulation. There may be intra-articular extension, somewhat limited evaluation due to overlapping structures. 5th MCP alignment appears grossly preserved. Soft tissues: Soft tissue swelling about the fracture. XR/XR hand LT min 3V* [id number] IMPRESSION: Acute mildly comminuted and angulated fracture of the small finger proximal phalangeal base.
--- NOTE | 2025-02-16 23:07 | XRR_ITS ---
PROCEDURE INFORMATION: Exam: XR Right Shoulder Exam date and time: 02/16/2025 11:10 PM Age: 79 years old Clinical indication: Injury or trauma; Fall; Fracture, traumatic injury; Closed fracture; Humerus; Right; Additional info: Fall, known FX TECHNIQUE: Imaging protocol: Radiologic exam of the right shoulder. Views: 2 or more views. COMPARISON: CR XR shoulder RT min 2V* [id number] 02/09/2025 10:25 AM FINDINGS: Bones/joints: Redemonstrated mildly impacted/foreshortened right humeral neck fracture with superior displacement of the humeral shaft relative to humeral neck and associated apex superolateral angulation. Humeral head remains in articulation with the glenoid. There is callus change about the formation with persistent linear fracture lucency. No definite new fracture identified. Osseous demineralization. Soft tissues: Unremarkable. XR/XR shoulder RT min 2V* [id number] IMPRESSION: Redemonstrated right humeral neck fracture. Alignment is similar to 02/09/2025 allowing for differences in patient positioning. No definite new fracture identified.
[2025-02-17 00:31] VITALS: PULSE 74; RESP 16; O2SAT 96
== END 2025-02-17 01:42 | disposition home or self-care (01) ==
PROVIDERS: Emergency Provider Student in an Organized Health Care Education/Training Program; PCP Internal Medicine
DX: S01.511A Laceration without foreign body of lip, initial encounter (principal); S62.617A Displaced fracture of proximal phalanx of left little finger, initial encounter for closed fracture; W19.XXXA Unspecified fall, initial encounter; E78.5 Hyperlipidemia, unspecified; I10 Essential (primary) hypertension
CPT/HCPCS: 36415; 70450; 73030; 73130; 99284; J9999

== ENCOUNTER → 2025-03-09 08:38 | Outpatient (BNVA) | payer MEDICARE, MEDICAID, SELFPAY | PROVIDERS: PCP Internal Medicine; Visit Provider Orthopaedic Surgery | DX: S42.201D Unspecified fracture of upper end of right humerus, subsequent encounter for fracture with routine healing (principal); X58.XXXD Exposure to other specified factors, subsequent encounter | CPT/HCPCS: 73030; 99213 ==